=== PATIENT | male | born 1940 | race Caucasian/White ===

== ENCOUNTER → 2016-10-21 | Outpatient (CLI) | payer OTHER ==
[~2016-10-21] MED LIST: ACT15 PO; ASPEC325 PO; ATOR-24 PO; CLB200 PO; GLC5500 PO; GLYB5TAB3 PO; LISI5TAB3 PO; NTRAR PO; OXYC-57 PO; OXYSR/20 PO; SNK PO
[2016-10-21 18:28] LABS: BASO % 0.1 %; BASO ABS # 0.01 K/uL (0-0.2); COMPLETE YES; EOS % 1.6 %; HEMATOCRIT 38.3 % (42-52); IG% 0.4 %; LYMPH % 34.1 %; LYMPH ABS # 3.25 K/uL (1.2-3.4); MEAN CORPUSCULAR HEMOGLOBIN 31.8 pg (25-34); MEAN CORPUSCULAR HGB CONC 33.4 g/dl (32-36); MEAN PLATELET VOLUME 10.4 fL (7.4-10.4); NEUT % 56.8 %; PLATELET COUNT 283 K/uL (130-400); RED BLOOD COUNT 4.03 M/uL (4.7-6.1); WHITE BLOOD COUNT 9.53 K/uL (4.8-10.8)
[2016-10-21 18:36] LABS: ALT/SGPT 25 U/L (12-78); BLOOD UREA NITROGEN 11 mg/dl (7-18); BUN/CREATININE RATIO 11.6 (10-20); CALCIUM 9.1 mg/dl (8.5-10.1); CARBON DIOXIDE 27 mmol/L (21-32); CHLORIDE 105 mmol/L (98-107); CHOLESTEROL 124 mg/dl (0-200); CREATININE 0.95 mg/dl (0.60-1.40); GLUCOSE 159 mg/dl (70-99); POTASSIUM 4.4 mmol/L (3.5-5.1); SODIUM 141 mmol/L (136-145)
[2016-10-21 18:39] LABS: ALB/GLOB RATIO 0.9 (0.9-2); ALKALINE PHOSPHATASE 111 U/L (45-117); AST/SGOT 16 U/L (15-37); CHOLESTEROL/HDL RATIO 2.3; HDL CHOLESTEROL 54 mg/dl; LDL CHOLESTEROL CALCULATED 46 mg/dl; TRIGLYCERIDES 118 mg/dl (0-150); VERY LOW DENSITY LIPOPROT CALC 24 mg/dl
[2016-10-22 05:58] LABS: ESTIMATED AVERAGE GLUCOSE 154 mg/dl; HA1C FLAG Normal (Normal)
== END | disposition home or self-care (01) ==
LOC: C.LABSPEC 11:43
PROVIDERS: ATTEND Family Medicine
DX: E11.9 Type 2 diabetes mellitus without complications (principal); I10 Essential (primary) hypertension; E78.2 Mixed hyperlipidemia

== ENCOUNTER → 2017-04-22 | Outpatient (CLI) | payer OTHER ==
[2017-04-22 18:21] LABS: COMPLETE YES; EOS % 2.1 %; HEMATOCRIT 37.3 % (42-52); IG% 0.3 %; LYMPH % 38.1 %; LYMPH ABS # 2.86 K/uL (1.2-3.4); MEAN CELL VOLUME 95.6 fL (80-100); MEAN CORPUSCULAR HEMOGLOBIN 32.1 pg (25-34); MEAN CORPUSCULAR HGB CONC 33.5 g/dl (32-36); MEAN PLATELET VOLUME 10.4 fL (7.4-10.4); MONO % 6.8 %; NEUT % 52.7 %; PLATELET COUNT 260 K/uL (130-400)
[2017-04-22 18:28] LABS: ALT/SGPT 20 U/L (12-78); BLOOD UREA NITROGEN 11 mg/dl (7-18); BUN/CREATININE RATIO 13.3 (10-20); CALCIUM 9.5 mg/dl (8.5-10.1); CARBON DIOXIDE 25 mmol/L (21-32); CHLORIDE 106 mmol/L (98-107); CHOLESTEROL 100 mg/dl (0-200); CREATININE 0.82 mg/dl (0.60-1.40); GLUCOSE 122 mg/dl (70-99); POTASSIUM 4.6 mmol/L (3.5-5.1); SODIUM 139 mmol/L (136-145)
[2017-04-22 18:31] LABS: ALB/GLOB RATIO 0.9 (0.9-2); ALKALINE PHOSPHATASE 101 U/L (45-117); AST/SGOT 20 U/L (15-37); CHOLESTEROL/HDL RATIO 1.7; HDL CHOLESTEROL 60 mg/dl; LDL CHOLESTEROL CALCULATED 29 mg/dl; TRIGLYCERIDES 56 mg/dl (0-150); VERY LOW DENSITY LIPOPROT CALC 11 mg/dl
== END | disposition home or self-care (01) ==
LOC: C.LABSPEC 18:01
PROVIDERS: ATTEND Family Medicine
DX: E11.9 Type 2 diabetes mellitus without complications (principal); E78.2 Mixed hyperlipidemia; I10 Essential (primary) hypertension

== ENCOUNTER 2017-10-23 05:36 | Inpatient (IN) | payer OTHER ==
[2017-09-29 14:11] VITALS: BMI 33.0
--- NOTE | 2017-09-29 14:52 | PAT Medication Instructions ---
Service Date Sep 29, 2017. Current Home Medication List Atorvastatin (Lipitor), 20 MG PO QAM Glyburide-Metformin (Glucovance 5/500 Mg), 2 TAB PO QAM Glyburide-Metformin (Glucovance 5/500 Mg), 1 TAB PO QDD Lisinopril (Zestril), 5 MG PO QAM Oxycodone/Acetaminophen 5MG/325MG (Percocet 5MG/325MG), 1-2 TABLETS PO UD PRN for Pain Pioglitazone (Actos), 15 MG PO QAM Psyllium (Metamucil), 1 DOSE PO UD PRN for PRN Medication Instructions For Your Scheduled Surgery - Hold the following medications the morning of surgery: Glyburide-Metformin (Glucovance 5/500 Mg), 2 TAB PO QAM Lisinopril (Zestril), 5 MG PO QAM Pioglitazone (Actos), 15 MG PO QAM Psyllium (Metamucil), 1 DOSE PO UD PRN for PRN - Take the following medications the morning of surgery with a sip of water: Atorvastatin (Lipitor), 20 MG PO QAM Oxycodone/Acetaminophen 5MG/325MG (Percocet 5MG/325MG), 1-2 TABLETS PO UD PRN for Pain (if needed, can be taken up to four hours before surgery) - Take the following medications as scheduled the night before surgery: Glyburide-Metformin (Glucovance 5/500 Mg), 1 TAB PO QDD Oxycodone/Acetaminophen 5MG/325MG (Percocet 5MG/325MG), 1-2 TABLETS PO UD PRN for Pain (if needed) Psyllium (Metamucil), 1 DOSE PO UD PRN for PRN (if needed) If you have any questions please call us at [phone] or [phone] or [phone]
[2017-09-29 15:40] LABS: BASO % 0.1 %; BASO ABS # 0.01 K/uL (0-0.2); EOS % 1.1 %; HEMATOCRIT 36.7 % (42-52); HEMOGLOBIN 12.1 g/dL (14.0-18.0); IG# 0.03 K/uL (0.00-0.02); LYMPH % 30.4 %; LYMPH ABS # 2.78 K/uL (1.2-3.4); MEAN CELL VOLUME 96.1 fL (80-100); MEAN CORPUSCULAR HEMOGLOBIN 31.7 pg (25-34); MEAN PLATELET VOLUME 10.2 fL (7.4-10.4); MONO % 6.1 %; MONO ABS # 0.56 K/uL (0.11-0.59); NEUT ABS # 5.66 K/uL (1.4-6.5); PLATELET COUNT 277 K/uL (130-400); RED CELL DISTRIBUTION WIDTH CV 14.3 % (11.5-14.5); RED CELL DISTRIBUTION WIDTH SD 50.5 fL (36.4-46.3); WHITE BLOOD COUNT 9.14 K/uL (4.8-10.8)
[2017-09-29 15:52] LABS: ALBUMIN 3.5 gm/dl (3.4-5.0); CALCIUM 9.2 mg/dl (8.5-10.1); CREATININE 0.8 mg/dl (0.60-1.40); POTASSIUM 4.2 mmol/L (3.5-5.1); PTT PATIENT 26.5 SECONDS (21.0-31.0)
--- NOTE | 2017-09-29 15:55 | DIAGNOSTIC IMAGING REPORT ---
CHEST 2 VIEWS ROUTINE CLINICAL HISTORY: PAT preoperative evaluation COMPARISON STUDY: No previous studies for comparison. FINDINGS: The bones soft tissues and hemidiaphragms are normal. The cardiomediastinal silhouette is normal. The lungs are clear. The pulmonary vasculature is normal. IMPRESSION: Negative chest. The above report was generated using voice recognition software. It may contain grammatical, syntax or spelling errors. Electronically signed by: Uzair Dwyer M.D. 09/29/2017 3:54 PM Dictated Date/Time: 09/29/2017 3:52 PM
[2017-09-29 16:17] LABS: HEMOGLOBIN A1C 6.7 % (4.5-5.6)
--- NOTE | 2017-10-22 10:32 | HISTORY & PHYSICAL EXAMINATION ---
DATE OF ADMISSION: 10/23/2017 CHIEF COMPLAINT: Right hip pain. HISTORY OF PRESENT ILLNESS: The patient is a 77-year-old male with known osteoarthritis about his right hip. He needs to use a cane for ambulation due to pain and disability with weightbearing activities. He has had previous knee replacement surgery and lumbar spine surgery. He has been trying to hold off on his hip replacement; however, due to ongoing pain and disability, he now desires to proceed with right total hip arthroplasty. PAST MEDICAL HISTORY: Hypertension, hypercholesterolemia, and type 2 diabetes. PAST SURGICAL HISTORY: Right knee replacement as above, lumbar spine surgery, and right wrist surgery. MEDICATIONS: Glyburide/metformin 5/500 two times daily, lisinopril 5 mg daily, pioglitazone 15 mg daily, and atorvastatin 40 mg daily. ALLERGIES: No known drug allergies. SOCIAL HISTORY AND REVIEW OF SYSTEMS: Noncontributory. PHYSICAL EXAMINATION: GENERAL: Well-nourished and well-developed elderly male, who appears his stated age. HEENT: Normocephalic and atraumatic. Extraocular movements intact. Oropharynx is pink and moist. NECK: Supple without adenopathy. LUNGS: Clear to auscultation bilaterally. HEART: Regular rate and rhythm. ABDOMEN: Soft, nontender, nondistended, and obese. EXTREMITIES: The upper extremities are within normal limits. The right hip demonstrates limited range of motion. There is limitation of active and passive internal/external rotation with pain at end range. X-RAYS: X-rays were reviewed. He has complete loss of the right hip joint space. There are osteophytes about the femoral head. ASSESSMENT: Right hip degenerative joint disease. PLAN: Risks versus benefits were discussed. Consent was obtained. The patient's primary care physician is Dr. Manuel. We will proceed with right total hip arthroplasty as indicated.
[~2017-10-23] VITALS: Ht 172.7 cm; Wt 98.0 kg
[2017-10-23] VITALS (11 sets, daily range): BP systolic 88–159; BP diastolic 53–97; PULSE 67–91; TEMP 36.4–36.7; O2SAT 93–98; Ht 172.7 cm; Wt 98.0 kg
[~2017-10-23 05:36] MED LIST changes: -ACT15 PO; +ACT30 PO; -ASPEC325 PO; -CLB200 PO; -GLC5500 PO; +LISI-729 PO; -LISI5TAB3 PO; +MISSING PHYSICIAN SIGNATURE ON ORDER SCH; -NTRAR PO; -OXYSR/20 PO; +PSYL48.59 PO; -SNK PO
[2017-10-23] MEDS ORDERED: METOCLOPRAMIDE HCL 10 MG TAB PO SCH (06:00)
[2017-10-23] MEDS ORDERED: CeleBREX 200 MG CAP PO SCH (06:00)
[2017-10-23] MEDS ORDERED: GABAPENTIN 300 MG CAP PO SCH (06:00)
[2017-10-23] MEDS ORDERED: ACETAMINOPHEN 500 MG TAB PO SCH (06:00)
[2017-10-23] MEDS ORDERED: FAMOTIDINE 20 MG TAB PO SCH (06:00)
[2017-10-23] MEDS ORDERED: ROPIVACAINE 5MG/ML 30 ML 150 MG, BUPIVACAINE 0.5% MPF INJ 30 ML, EpINEphrine HCL INJ 0.... INFIL SCH ×8 (06:00)
[2017-10-23] MEDS ORDERED: CEFAZOLIN 2000MG IV PUSH 15 ML IV SCH (06:00)
[2017-10-23] MEDS ORDERED: LACTATED RINGER'S 1000ML 1,000 ML IV SCH (06:00)
[2017-10-23] MEDS ORDERED: DEXAMETHASONE 4 MG TAB PO SCH (06:00)
[2017-10-23] MEDS ORDERED: BUPIVACAINE 0.5 % 5 MG/1 ML PF 10ML VIAL ONE (06:22)
[2017-10-23] MEDS: TRANEXAMIC ACID INJ 1,000 MG x 2 Bags IV SCH ×4 (06:30→07:45)
--- NOTE | 2017-10-23 07:40 | History & Physical Bridge Note ---
H&P Re-Evaluation Bridge Note: I have examined the patient, reviewed the History & Physical and in the interval since the performance of the History & Physical I have noted the following changes of clinical significance: No changes noted
[2017-10-23] MEDS: OXYCODONE HCL 10 MG TABCR (OXYCONTIN) PO SCH ×2 (07:45→07:46)
[2017-10-23] MEDS ORDERED: FENTANYL CITRATE INJ 50 MCG/1 ML 2 ML VIAL ONE (07:45)
[2017-10-23] MEDS ORDERED: MIDAZOLAM HCL 1 MG/ML 2ML VIAL ONE ×3 (07:45→07:53)
[2017-10-23] MEDS ORDERED: BACITRACIN 50000 UNIT VIAL ONE (07:54)
[2017-10-23] MEDS ORDERED: POVIDONE-IODINE OP SOLN 30 ML BTL ONE (07:54)
[2017-10-23] MEDS ORDERED: ORTHO JOINT ANESTHETIC ONE (07:54)
[2017-10-23] MEDS ORDERED: FENTANYL CITRATE INJ 50 MCG/1 ML 2 ML VIAL IV PRN (08:15)
[2017-10-23] MEDS ORDERED: PHENYLEPHRINE 100MCG/ML 5ML SYR IV PRN (08:15)
[2017-10-23] MEDS ORDERED: EpHEDrine SULFATE INJ 50 MG/ML AMP IV PRN (08:15)
[2017-10-23] MEDS ORDERED: ATROPINE SULFATE 0.1 MG/ML 5ML SYR IV PRN (08:15)
[2017-10-23] MEDS ORDERED: HYDROmorphone INJ 2 MG/ML SYR/VIAL IV PRN (08:15)
[2017-10-23] MEDS ORDERED: ONDANSETRON INJ 2 MG/ML 2 ML VIAL IV PRN ×2 (08:15→09:45)
[2017-10-23] MEDS ORDERED: LIDOCAINE HCL 2% 2 ML VIAL (20MG/ML) ONE (08:51)
[2017-10-23] MEDS ORDERED: EpHEDrine SULFATE 50MG/5ML SYR ONE (08:51)
[2017-10-23] MEDS ORDERED: PHENYLEPHRINE 100MCG/ML 5ML SYR ONE (08:51)
[2017-10-23] MEDS ORDERED: PROPOFOL IV EMULSION 10 MG/ML 20 ML VIAL IV ONE (08:51)
--- NOTE | 2017-10-23 09:09 | [facility] Post Operative Brief Note ---
Immediate Operative Summary Operative Date Oct 23, 2017. Pre-Operative Diagnosis Right Hip Degenerative Joint Disease Post-Operative Diagnosis Right Hip Degenerative Joint Disease Procedure(s) Performed Right Total Hip Arthroplasty--Uncemented Surgeon Dr. Telles Rooter Operator Surgeon(s) HEATHER Ashton Estimated Blood Loss 100cc Findings Consistent with Post-Op Diagnosis Specimens A. Right Femoral Head Anesthesia Type MAC Spinal Regional Complication(s) none Disposition Accompanied Pt To Recover: no Disposition: Recovery Room / PACU
--- NOTE | 2017-10-23 09:19 | OPERATIVE REPORT ---
DATE OF OPERATION: 10/23/2017 PREOPERATIVE DIAGNOSIS: Osteoarthritis, right hip. POSTOPERATIVE DIAGNOSIS: Osteoarthritis, right hip. PROCEDURE: Right Pepper total hip arthroplasty. SURGEON: Dr. Telles. IN CLASS SPECIAL EDUCATION TEACHER: Alex Banda PA-C. ANESTHESIA: Spinal. COMPLICATIONS: None. OPERATION AND FINDINGS: PROCEDURE: Following induction of adequate spinal anesthesia, the patient was placed in left lateral decubitus position and right Drew-Langenbeck incision was made. Subcutaneous tissue was sharply dissected. Electrocautery used for hemostasis. The fascia was incised throughout the length of the wound and a stewart scissor placed beneath the short external rotators. The pyriformis was tagged with #1 Vicryl. The short external rotators were divided from the posterior aspect of the femur using electrocautery. These were swept posteriorly. A T-capsulotomy incision was made and the hip was dislocated using a combination of flexion, adduction, and internal rotation. Exposure of the femoral neck with old-style Hohmann and a blunt Hohmann was carried out and a femoral rasp was utilized as a guide for making the appropriate level femoral neck cut. This bone fragment was removed and reserved on the back table. Next, attention was turned to the acetabulum where bone hook was used to retract the femur while the offset retractors were placed anterior and posteriorly. A double-angled Hohmann was placed in superior and anterior position exposing the acetabulum nicely. Acetabular labrum as well as posterior capsule elements were removed using a long knife and a long pickup. Fovea centralis was cleared of all soft tissue. Sequential reamings were carried up to a 54 and decision was made to proceed with impaction of a 54 trabecular metal cup. This was impacted and held using a single 35 mm bone screw. The acetabular liner was placed with 15 of elevated posterior wall in the superior and posterior position. Next, attention was turned to the femoral portion of the case where a Bovie and pickup was used to further clear short external rotators from their insertion on the femur. Box osteotome was used to gain access to the femoral canal and the T-handled rasp and a rattail rasp were used to further open and lateral the canal. Sequentially raspings were carried up to a 5 which gave good fit and fill of the proximal femur. A trial reduction was carried out and a 132 degree femoral neck component was chosen as the size to be used. A -2.5 x 36 mm ceramic femoral head was impacted into position, +0 head was utilized. The trial reduction was stable in all degrees of rotation with no [id number] impingement. The hip was dislocated. The trial components were removed and the final femoral stem, neck, and femoral head combination were assembled on the back table and impacted into position. Hip was relocated. Range of motion checked once again successful and the wound was irrigated. The pyriformis repaired to the greater trochanter using #1 Vicryl [id number] suture. A Hemovac drain was placed and the fascia was closed using #1 Vicryl, subcutaneous tissue was closed using 0 Dexon, and skin was closed with jodee. Sterile dressing of Adaptic, 4 x 4's, ABDs, and foam tape was applied. The patient tolerated the procedure well. Due to the complex nature of the procedure, the entire surgery was performed with the operational assistance of Alex Banda PA-C. The mailing machine assistant, under direct supervision, was involved in the actual performance of all aspects of the surgical procedure including hemostasis, tissue retraction and incision, instrument management, patient positioning, and wound closure. DISPOSITION: Recovery room, stable. I attest to the content of the Intraoperative Record and any orders documented therein. Any exception s are noted below.
[2017-10-23] MEDS ORDERED: CEFAZOLIN IV 2,000 MG in DEXTROSE 5% 50ML 50 ML IV SCH (09:45)
[2017-10-23] MEDS ORDERED: ZOLPIDEM TARTRATE 5 MG TAB PO PRN (09:45)
[2017-10-23] MEDS ORDERED: TAMSULOSIN HCL 0.4 MG CAP PO PRN (09:45)
[2017-10-23] MEDS ORDERED: ALUMINUM/MAGNESIUM/SIMETH (MAALOX MAX) 30 ML UDC PO PRN (09:45)
[2017-10-23] MEDS ORDERED: OXYCODONE HCL IR 5 MG TAB (IMMEDIATE RELEASE) PO PRN (09:45)
[2017-10-23] MEDS ORDERED: METOCLOPRAMIDE HCL INJ 5 MG/ML 2 ML VIAL IV PRN (09:45)
[2017-10-23] MEDS ORDERED: MAGNESIUM HYDROXIDE SUSP 30 ML UDC PO PRN (09:45)
[2017-10-23] MEDS ORDERED: MoRPHine SULFATE 2 MG/ML CARP IV PRN (09:45)
[2017-10-23] MEDS ORDERED: PHARMACY GLYCEMIC MGMT CONSULT SCH (09:55)
--- NOTE | 2017-10-23 10:12 | DIAGNOSTIC IMAGING REPORT ---
AP PELVIS, CROSSTABLE LATERAL RIGHT HIP History: Right total hip arthroplasty. Degenerative arthritis. Postop. FINDINGS: The patient is status post a right total hip arthroplasty. The hardware is intact. No fracture or dislocation. Surgical drains are in place. IMPRESSION: Right total hip arthroplasty. No evidence for hardware complication Electronically signed by: Papo [place] M.D. 10/23/2017 10:11 AM Dictated Date/Time: 10/23/2017 10:10 AM
--- NOTE | 2017-10-23 11:33 | Anesthesiology Progress Note ---
Anesthesia Post Op Note Date & Time Oct 23, 2017 at 11:33 Vital Signs Pain Intensity: 0 Vital Signs Past 12 Hours Date Time Temp Pulse Resp B/P (MAP) Pulse Ox O2 Delivery O2 Flow Rate FiO2 10/23/17 11:15 72 12 109/65 94 Nasal Cannula 3 10/23/17 11:05 68 12 111/63 93 Nasal Cannula 3 10/23/17 10:55 70 12 106/63 94 Nasal Cannula 3 10/23/17 10:45 71 12 112/63 93 Nasal Cannula 3 10/23/17 10:35 70 12 104/62 96 Nasal Cannula 3 10/23/17 10:25 74 12 106/61 94 Nasal Cannula 2 10/23/17 10:15 73 12 111/60 93 Nasal Cannula 2 10/23/17 10:05 73 12 107/58 94 Nasal Cannula 2 10/23/17 09:55 77 12 107/60 95 Nasal Cannula 2 10/23/17 09:45 77 13 102/62 100 Oxymask 10 10/23/17 09:37 36.5 77 16 93/48 (69) 100 Oxymask 10 10/23/17 07:20 36.7 91 20 132/84 94 Room Air Notes Mental Status: alert / awake / arousable, participated in evaluation Pt Amnestic to Procedure: Yes Nausea / Vomiting: adequately controlled Pain: adequately controlled Airway Patency, RR, SpO2: stable & adequate BP & HR: stable & adequate Hydration State: stable & adequate Neuraxial Anesthesia: was administered, sensory block is resolving Anesthetic Complications: no major complications apparent
[2017-10-23] MEDS ORDERED: INSULIN GLARGINE SOLOSTAR 100 UNITS/ML 3 ML PEN SC SCH (12:00)
[2017-10-23] MEDS ORDERED: MoRPHine SULFATE 4 MG/ML 1 ML CARP\\VIAL IV PRN (12:30)
[2017-10-23] MEDS ORDERED: GLUCOSE 40% GEL 15 GM TUBE PO PRN (12:30)
[2017-10-23] MEDS ORDERED: GLUCOSE 10 TABS/TUBE PO PRN (12:30)
[2017-10-23] MEDS ORDERED: GLUCAGON FOR INJ 1 MG VIAL SQ PRN (12:30)
[2017-10-23] MEDS ORDERED: DEXTROSE 50% 50 ML SYR IV PRN (12:30)
[2017-10-23] MEDS ORDERED: SODIUM CHLORIDE 0.9% 500ML 500 ML IV SCH (12:45)
[2017-10-23 12:48] LABS: HEMATOCRIT 33.4 % (42-52)
[2017-10-23] MEDS: SODIUM CHLORIDE 0.9% 1000ML 1,000 ML IV SCH ×2 (12:51→19:13)
--- NOTE | 2017-10-23 13:02 | Pharmacy Progress Note ---
Glycemic Control Intl Consult Date of Service Oct 23, 2017. Scope Glycemic Pharmacist consulted by Alex Banda PA-C on 10/23/17 for glycemic control and to write orders per [facility] inpatient glycemic control protocol Objective Weight (Kilograms): 98.00 Accuchecks BSG (last 24hrs): Test 10/23/17 07:03 10/23/17 09:41 Bedside Glucose 109 mg/dl (70-99) 135 mg/dl (70-99) Recent Pertinent Medications Outpatient Anti-diabetic Regimen: * Glyburide-metformin 5 mg/500 mg take 2 tablets by mouth in the morning and 1 tablet in the evening; Actos 15 mg PO daily * A1c = 6.7 % 09/29/17 Risk Factors for Insulin Resistance: * Steroids: dexamethasone 8 mg PO prior to surgery and 10 mg IVP scheduled for tomorrow morning * Recent Surgery: POD 0 for hip surgery * Diet: type 2 diabetic diet Assessment & Plan ASSESSMENT: * Mr Weaver is a 77 y/o M with a PMH of HTN, HLD, and well controlled type 2 diabetes who presents for a right hip replacement. He received 8 mg of oral dexamethasone prior to surgery then 10 mg of IV dexamethasone will be given tomorrow. Patient's fasting blood sugar prior to surgery was 109 and 135 mg/dL. * Since patient received oral dexamethasone will give 40 units of Lantus (0.4 units/kg and also between weight-based stress of 2 and 3 dosing). Will utilize weight-based stress of 3 Novolog parameters as the patient received dexamethasone orally and then will receive IV tomorrow. Overnight checks ordered to ensure full 24 hour coverage. Patient most likely has some insulin resistance as he has a well maintained HbA1C yet is maintained on three oral agents (one pill is a combo pill). * Pt is maintained on oral antidiabetic agents as an outpatient * Oral agents are not recommended for inpatient use d/t drug interactions, changing PO intake, and difficulty titrating for acute hyper/hypoglycemia. ADA recommends re-initiating outpatient oral agents 1-2 days prior to discharge if/ when appropriate if they were held on admission. * Most likely will restart on POD 2. * Will hold oral agents for admission and utilize SQ basal bolus insulin regimen which is the recommended regimen for inpatient glycemic control. * Will initiate weight based insulin dosing for insulin haydee patient and titrate based on BSG trends. PLAN FOR INPATIENT GLYCEMIC CONTROL: * Holding outpatient oral diabetes medications * Basal insulin with LANTUS 40 units SQ x 1 then dose based upon response * Correctional Insulin with NOVOLOG per scale ACHS or Q6hrs while NPO * Goal Range: Low 110 mg/dL - High 140 mg/dL * Correction Factor: 15 mg/dL/unit * Nutritional / Prandial insulin per carb ratio of 1 unit per 5 grams CHO consumed OUTPATIENT RECOMMENDATION * Patient's HbA1C is well controlled- recommend continuing on current agents. Can maximize metformin dosing as an outpatient to 1 gm PO BID. Thank you.
[2017-10-23] MEDS: FERROUS GLUCONATE 324 MG TAB PO SCH ×2 (13:15→17:53)
[2017-10-23] MEDS: INSULIN ASPART 100 UNITS/ML 3 ML PEN SC SCH ×4 (13:17→23:42)
[2017-10-23] MEDS: KETOROLAC TROMETHAMINE 15 MG/ML VIAL IV. SCH ×2 (13:46→20:18)
[2017-10-23] MEDS: ACETAMINOPHEN 500 MG TAB PO SCH ×2 (13:46→21:54)
--- NOTE | 2017-10-23 14:00 | History and Physical ---
History & Physical Date of Service Oct 23, 2017. History & Physical This is a 77 year old male with a PMH of DM2, HTN - presents for a R hip surgery. I saw the patient in room 306 after the procedure. States pain is controlled; denies any problems/issues at this time. Medical consultation for blood pressure and blood sugar control. VITALS: Last Vital Signs Documentation Date Time Temp Pulse Resp B/P (MAP) Pulse Ox O2 Delivery O2 Flow Rate FiO2 10/23/17 12:50 74 16 101/64 (76) 96 10/23/17 11:55 Nasal Cannula 2.0 10/23/17 11:55 36.4 GEN: no acute distress HEENT: NC/AT CVS: +S1, S2, RRR LUNGS: CTA bilaterally; auscultated anterior/laterally EXT: no edema, hemovac in place; draining appropriately NEURO: no focal deficits Plan: will give 500cc bolus due to hypotensive episodes. Blood pressure improving during my exam. Hold Lisinopril (outpatient records suggest he takes Benazepril-HCTZ, either way , we will hold this). Monitor H/H for DM2 - hold oral agents, pharmacy is consulted for glycemic control due to dexamethasone use woo-operatively. Currently on Lantus and sliding scale protocol.
--- NOTE | 2017-10-23 15:43 | Medical Consult ---
Consultation Date of Consultation: Oct 23, 2017. Attending Physician: Bradley Telles M.D. Reason for Consultation: Postop medical management History of Present Illness 77-year-old male who is status post right total hip replacement today by Dr. Telles. Postoperatively the patient is doing well. He reports his pain is well controlled. He denies numbness or tingling to the lower extremities. He denies lightheadedness and dizziness. No chest pain or shortness of breath. He denies abdominal pain and nausea. He has not voided since surgery. Past Medical/Surgical History Medical Problems: (1) DM type 2 (diabetes mellitus, type 2) Status: Chronic (2) HLD (hyperlipidemia) Status: Chronic (3) HTN (hypertension) Status: Chronic Surgical Problems: (1) History of appendectomy Status: Chronic (2) History of back surgery Status: Chronic (3) History of bowel resection Status: Chronic (4) Status post total knee replacement, right Status: Chronic Family History Diabetes mellitus FATHER Social History Smoking Status: Never Smoker Alcohol Use: occasionally Allergies Coded Allergies: No Known Allergies (Unverified , 10/23/17) Home Medications Metamucil (Psyllium) 48.57 % Pow 1 Dose PO UD PRN Percocet 5MG/325MG (Oxycodone/Acetaminophen) Tab 1-2 Tablets PO UD PRN PAIN Actos (Pioglitazone) 30 Mg Tab 15 Mg PO QAM 90 Days Zestril (Lisinopril) 5 Mg Tab 5 Mg PO QAM Glucovance 5/500 Mg (Glyburide-Metformin) 1 Tab Tab 1 Tab PO HS 30 Days Glucovance 5/500 Mg (Glyburide-Metformin) 1 Tab Tab 2 Tab PO QAM 90 Days Lipitor (Atorvastatin Calcium) 40 Mg Tab 20 Mg PO QAM Current Inpatient Medications Current Inpatient Medications Medications (Trade) Dose Ordered Sig/Mahamed Route Start Time Stop Time Status Last Admin Dose Admin Lactated Ringer's 1,000 ml @ 15 mls/hr Q24H IV 10/23/17 06:00 10/24/17 05:59 10/23/17 07:40 15 MLS/HR Cefazolin Sodium 15 ml @ 3.75 mls/ min PREOP IV 10/23/17 06:00 10/23/17 18:00 10/23/17 08:14 3.75 MLS/MIN Acetaminophen (Tylenol Tab) 1,000 mg PREOP PO 10/23/17 06:00 10/23/17 18:00 10/23/17 07:46 1,000 MG Celecoxib (CeleBREX CAP) 200 mg PREOP PO 10/23/17 06:00 10/23/17 18:00 10/23/17 07:47 200 MG Dexamethasone (Decadron Tab) 8 mg PREOP PO 10/23/17 06:00 10/23/17 18:00 10/23/17 07:46 8 MG Famotidine (Pepcid Tab) 20 mg PREOP PO 10/23/17 06:00 10/23/17 18:00 10/23/17 07:47 20 MG Gabapentin (Neurontin Cap) 300 mg PREOP PO 10/23/17 06:00 10/23/17 18:00 10/23/17 07:46 300 MG Metoclopramide HCl (Reglan Tab) 10 mg PREOP PO 10/23/17 06:00 10/23/17 18:00 10/23/17 07:47 10 MG Oxycodone HCl (Oxycontin Tab) 10 mg PREOP PO 10/23/17 06:00 10/23/17 18:00 Sodium Chloride 1,000 ml @ 100 mls/hr Q10H IV 10/23/17 09:37 10/24/17 09:36 10/23/17 12:51 100 MLS/HR Ketorolac Tromethamine (Toradol Inj) 15 mg Q6H IV. 10/23/17 14:00 10/24/17 08:01 10/23/17 13:46 15 MG Oxycodone HCl (Roxicodone Immediate Rel Tab) 1 TABLET FOR PAIN RATING... Q4H PRN PO 10/23/17 09:45 11/06/17 09:44 Morphine Sulfate (MoRPHine SULFATE INJ) 2 mg Q2HWA PRN IV 10/23/17 09:45 11/06/17 09:44 Acetaminophen (Tylenol Tab) 1,000 mg Q8H PO 10/23/17 14:00 11/22/17 13:59 Magnesium Hydroxide (Milk Of Magnesia Susp) 30 ml Q6H PRN PO 10/23/17 09:45 11/22/17 09:44 Docusate Sodium (coLACE CAP) 100 mg BID PO 10/23/17 21:00 11/22/17 20:59 Diphenhydramine HCl (Benadryl Cap) 25 mg Q8H PRN PO 10/23/17 09:45 11/22/17 09:44 Al Hydrox/Mg Hydrox/Simethicone (Maalox Max Susp) 15 ml Q4H PRN PO 10/23/17 09:45 11/22/17 09:44 Zolpidem Tartrate (Ambien Tab) 5 mg HSZ PRN PO 10/23/17 09:45 11/22/17 09:44 Multivitamins (Multivitamin Tab) 1 tab QAM PO 10/24/17 09:00 11/23/17 08:59 Ondansetron HCl (Zofran Inj) 4 mg Q6H PRN IV 10/23/17 09:45 11/22/17 09:44 Metoclopramide HCl (Reglan Inj) 10 mg Q6H PRN IV 10/23/17 09:45 11/22/17 09:44 Ferrous Gluconate (Ferrous Gluconate Tab) 324 mg TIDM PO 10/23/17 12:30 11/22/17 12:29 10/23/17 13:15 324 MG Pantoprazole Sodium (Protonix Tab) 40 mg QAM PO 10/24/17 09:00 10/28/17 08:59 Tamsulosin HCl (Flomax Cap) 0.4 mg QAM PRN PO 10/23/17 09:45 11/22/17 09:44 Dexamethasone Sodium Phosphate 10 mg/Syringe 2.5 ml @ 1 mls/min TODAY@0730 IV 10/24/17 07:30 10/24/17 09:00 Aspirin (Ecotrin Tab) 81 mg BID PO 10/23/17 21:00 11/22/17 20:59 Atorvastatin Calcium (Lipitor Tab) 20 mg QAM PO 10/24/17 09:00 11/23/17 08:59 Miscellaneous Information (Consult Glycemic Management Pharmacy) 1 ea UD N/A 10/23/17 09:55 11/22/17 09:54 Insulin Aspart (novoLOG ASPART) SLIDING SCALE ACHS SC 10/23/17 11:00 11/22/17 10:59 10/23/17 13:17 12 UNITS Insulin Aspart (novoLOG ASPART) SLIDING SCALE TODAY@0000,0400 SC 10/24/17 00:00 10/24/17 04:01 Morphine Sulfate (MoRPHine SULFATE INJ) 4 mg Q2HWA PRN IV 10/23/17 12:30 11/06/17 12:29 Glucose (Glucose 40% Gel) 15-30 GRAMS 15 GRAMS... UD PRN PO 10/23/17 12:30 11/22/17 12:29 Glucose (Glucose Chew Tab) 4-8 Tablets 4 Tabl... UD PRN PO 10/23/17 12:30 11/22/17 12:29 Dextrose (Dextrose 50% 50ML Syringe) 25-50ML OF 50% DW IV FOR... UD PRN IV 10/23/17 12:30 11/22/17 12:29 Glucagon (Glucagon Inj) 1 mg UD PRN SQ 10/23/17 12:30 11/22/17 12:29 Cefazolin Sodium 2000 mg/Syringe 15 ml @ 3.75 mls/ min Q8H IV 10/23/17 16:00 10/24/17 15:59 Review of Systems ROS per HPI, all other systems reviewed and negative Physical Exam Date Time Temp Pulse Resp B/P (MAP) Pulse Ox O2 Delivery O2 Flow Rate FiO2 10/23/17 14:47 78 16 99/62 (74) 98 10/23/17 13:53 85 18 159/97 (117) 97 Nasal Cannula 3.0 10/23/17 12:50 74 16 101/64 (76) 96 10/23/17 12:20 73 16 88/58 (68) 93 10/23/17 11:55 Nasal Cannula 2.0 10/23/17 11:55 36.4 69 14 102/62 (75) 95 Nasal Cannula 3.0 10/23/17 11:50 95 Nasal Cannula 3.0 10/23/17 11:50 36.4 69 14 102/62 (75) 95 Nasal Cannula 3.0 10/23/17 11:35 73 12 112/65 94 Nasal Cannula 3 10/23/17 11:25 36.8 72 15 105/69 93 Nasal Cannula 3 10/23/17 11:15 72 12 109/65 94 Nasal Cannula 3 10/23/17 11:05 68 12 111/63 93 Nasal Cannula 3 10/23/17 10:55 70 12 106/63 94 Nasal Cannula 3 10/23/17 10:45 71 12 112/63 93 Nasal Cannula 3 10/23/17 10:35 70 12 104/62 96 Nasal Cannula 3 10/23/17 10:25 74 12 106/61 94 Nasal Cannula 2 10/23/17 10:15 73 12 111/60 93 Nasal Cannula 2 10/23/17 10:05 73 12 107/58 94 Nasal Cannula 2 10/23/17 09:55 77 12 107/60 95 Nasal Cannula 2 10/23/17 09:45 77 13 102/62 100 Oxymask 10 10/23/17 09:37 36.5 77 16 93/48 (69) 100 Oxymask 10 10/23/17 07:20 36.7 91 20 132/84 94 Room Air General Appearance: WD/WN, no apparent distress Head: normocephalic, atraumatic Eyes: normal inspection, EOMI, sclerae normal ENT: hearing grossly normal, + pertinent finding (Mucous membranes moist) Neck: supple, no JVD, trachea midline Respiratory/Chest: lungs clear, normal breath sounds, no respiratory distress Cardiovascular: regular rate, rhythm, no edema, normal peripheral pulses Abdomen/GI: normal bowel sounds, non tender, soft, no organomegaly Extremities/Musculoskelatal: + pertinent finding (S/P right hip surgery, surgical dressing dry and intact, drain in place draining bloody drainage, CSM checks intact to right lower extremity) Neurologic/Psych: no motor/sensory deficits, alert, normal mood/affect, oriented x 3 Skin: normal color, warm/dry Laboratory Results Last 24 Hours Test 10/23/17 07:03 10/23/17 09:41 10/23/17 12:25 10/23/17 12:40 Bedside Glucose 109 mg/dl 135 mg/dl 219 mg/dl Hemoglobin 11.0 g/dL Hematocrit 33.4 % Assessment & Plan S/P RIGHT GLEN - POD#0 - activity and wound care orders as per ortho - pain control with bowel regimen - PT/OT - monitor H/H for acute blood loss anemia and transfuse blood products PRN - EBL 100 cc EPISODE OF HYPOTENSION -Likely due to volume depletion from surgery -Blood pressure improved after 500 cc bolus -Hemoglobin checked and noted to be 11.0 -Will hold lisinopril, resume once blood pressures have stabilized DIABETES -Recent Hgb A1c 6.7 -Hold oral agents, and utilize Lantus and NovoLog as per protocol while hospitalized HLD -Continue statin DVT PROPHYLAXIS -Aspirin 81 mg twice daily as per orthopedics Thank you for this consultation. We will follow the patient with you during their hospital stay. You can reach a member of the Orthopaedic Hospitalist Team 10/02 via pager @ [phone].
[2017-10-23] MEDS: CEFAZOLIN IV 2,000 MG in SYRINGE 0 ML IV SCH ×2 (16:01→23:45)
[2017-10-23] MEDS ORDERED: GLYBURIDE METFORMIN PO SCH (21:00)
[2017-10-23] MEDS: DOCUSATE SODIUM 100 MG CAP PO SCH (21:07)
[2017-10-23] MEDS: ASPIRIN 81 MG ECTAB PO SCH (21:07)
[2017-10-24] VITALS (8 sets, daily range): BP systolic 112–128; BP diastolic 65–80; PULSE 68–82; TEMP 36.3–36.6; O2SAT 95–99
[2017-10-24] MEDS: KETOROLAC TROMETHAMINE 15 MG/ML VIAL IV. SCH ×2 (01:33→07:52)
[2017-10-24] MEDS: SODIUM CHLORIDE 0.9% 1000ML 1,000 ML IV SCH (03:04)
[2017-10-24] MEDS: INSULIN ASPART 100 UNITS/ML 3 ML PEN SC SCH ×5 (04:00→21:00)
[2017-10-24] MEDS: ACETAMINOPHEN 500 MG TAB PO SCH ×3 (05:35→21:50)
[2017-10-24 06:27] LABS: HEMATOCRIT 27.1 % (42-52); HEMOGLOBIN 9.1 g/dL (14.0-18.0); IG# 0.04 K/uL (0.00-0.02); LYMPH % 11.3 %; LYMPH ABS # 1.68 K/uL (1.2-3.4); MEAN CELL VOLUME 94.4 fL (80-100); MEAN CORPUSCULAR HEMOGLOBIN 31.7 pg (25-34); MEAN CORPUSCULAR HGB CONC 33.6 g/dl (32-36); MEAN PLATELET VOLUME 9.5 fL (7.4-10.4); MONO % 9.2 %; MONO ABS # 1.37 K/uL (0.11-0.59); NEUT % 79.2 %; NEUT ABS # 11.76 K/uL (1.4-6.5); PLATELET COUNT 198 K/uL (130-400); RED CELL DISTRIBUTION WIDTH SD 48.5 fL (36.4-46.3); WHITE BLOOD COUNT 14.85 K/uL (4.8-10.8)
[2017-10-24 07:01] LABS: CALCIUM 8.1 mg/dl (8.5-10.1); CREATININE 0.95 mg/dl (0.60-1.40); POTASSIUM 4.2 mmol/L (3.5-5.1)
[2017-10-24] MEDS ORDERED: DEXAMETHASONE INJ 10 MG in SYRINGE 0 ML IV SCH (07:30)
[2017-10-24] MEDS: CEFAZOLIN IV 2,000 MG in SYRINGE 0 ML IV SCH (07:54)
--- NOTE | 2017-10-24 07:54 | Orthopedic Progress Note ---
Orthopedic Progress Note Date of Service Oct 24, 2017. Subjective Post OP Day: 1 Reports: feeling well, Denies: chest pain, SOB, nausea / vomiting, light headedness, calf pain Objective calves soft nontender, N/V intact, capillary refill less than 2 sec., dressing C /D/I (silverlon), A&O x3, toes mobile, hemovac drainage (180/100 cc per shift) Date Time Temp Pulse Resp B/P (MAP) Pulse Ox O2 Delivery O2 Flow Rate FiO2 10/24/17 04:05 36.5 68 18 112/65 (81) 97 Room Air 10/23/17 23:35 Room Air 10/23/17 23:05 36.7 73 18 114/70 (85) 93 Room Air 10/23/17 18:43 36.4 71 18 101/58 (72) 96 Room Air 10/23/17 15:52 36.4 67 18 95/53 (67) 93 Room Air 10/23/17 15:30 98 Nasal Cannula 2.0 10/23/17 14:47 78 16 99/62 (74) 98 10/23/17 13:53 85 18 159/97 (117) 97 Nasal Cannula 3.0 10/23/17 12:50 74 16 101/64 (76) 96 10/23/17 12:20 73 16 88/58 (68) 93 10/23/17 11:55 Nasal Cannula 2.0 10/23/17 11:55 36.4 69 14 102/62 (75) 95 Nasal Cannula 3.0 10/23/17 11:50 95 Nasal Cannula 3.0 10/23/17 11:50 36.4 69 14 102/62 (75) 95 Nasal Cannula 3.0 10/23/17 11:35 73 12 112/65 94 Nasal Cannula 3 10/23/17 11:25 36.8 72 15 105/69 93 Nasal Cannula 3 10/23/17 11:15 72 12 109/65 94 Nasal Cannula 3 10/23/17 11:05 68 12 111/63 93 Nasal Cannula 3 10/23/17 10:55 70 12 106/63 94 Nasal Cannula 3 10/23/17 10:45 71 12 112/63 93 Nasal Cannula 3 10/23/17 10:35 70 12 104/62 96 Nasal Cannula 3 10/23/17 10:25 74 12 106/61 94 Nasal Cannula 2 10/23/17 10:15 73 12 111/60 93 Nasal Cannula 2 10/23/17 10:05 73 12 107/58 94 Nasal Cannula 2 10/23/17 09:55 77 12 107/60 95 Nasal Cannula 2 10/23/17 09:45 77 13 102/62 100 Oxymask 10 10/23/17 09:37 36.5 77 16 93/48 (69) 100 Oxymask 10 Laboratory Results 24 Hours: Test 10/23/17 12:40 10/24/17 05:48 Hematocrit 33.4 % 27.1 % Hemoglobin 11.0 g/dL 9.1 g/dL White Blood Count 14.85 K/uL Red Blood Count 2.87 M/uL Mean Corpuscular Volume 94.4 fL Mean Corpuscular Hemoglobin 31.7 pg Mean Corpuscular Hemoglobin Concent 33.6 g/dl Platelet Count 198 K/uL Mean Platelet Volume 9.5 fL Neutrophils (%) (Auto) 79.2 % Lymphocytes (%) (Auto) 11.3 % Monocytes (%) (Auto) 9.2 % Eosinophils (%) (Auto) 0.0 % Basophils (%) (Auto) 0.0 % Neutrophils # (Auto) 11.76 K/uL Lymphocytes # (Auto) 1.68 K/uL Monocytes # (Auto) 1.37 K/uL Eosinophils # (Auto) 0.00 K/uL Basophils # (Auto) 0.00 K/uL Assessment & Plan Assessment: POD#1 SP RIGHT GLEN Plan: PT/OT DVT PROPH- ASA 81MG BID PAIN MANAGEMENT- CAT, TYLENOL DC PLANNING- DC FRIDAY WITH DC DRESSING/DRAIN IN AM
--- NOTE | 2017-10-24 08:13 | Anesthesiology Progress Note ---
Anesthesia Post Op Note Date & Time Oct 24, 2017 at 08:13 Vital Signs Pain Intensity: 0.0 Vital Signs Past 12 Hours Date Time Temp Pulse Resp B/P (MAP) Pulse Ox O2 Delivery O2 Flow Rate FiO2 10/24/17 08:11 95 Room Air 10/24/17 08:00 36.3 69 16 114/66 (82) 95 Room Air 10/24/17 04:05 36.5 68 18 112/65 (81) 97 Room Air 10/23/17 23:35 Room Air 10/23/17 23:05 36.7 73 18 114/70 (85) 93 Room Air Notes Mental Status: alert / awake / arousable, participated in evaluation Pt Amnestic to Procedure: Yes Nausea / Vomiting: adequately controlled Pain: adequately controlled Airway Patency, RR, SpO2: stable & adequate BP & HR: stable & adequate Hydration State: stable & adequate Neuraxial Anesthesia: was administered, sensory block resolved Anesthetic Complications: no major complications apparent
[2017-10-24] MEDS: PANTOprazole SOD 40 MG TAB PO SCH (08:39)
[2017-10-24] MEDS: ASPIRIN 81 MG ECTAB PO SCH ×2 (08:39→21:01)
[2017-10-24] MEDS: DOCUSATE SODIUM 100 MG CAP PO SCH ×2 (08:39→21:01)
[2017-10-24] MEDS: FERROUS GLUCONATE 324 MG TAB PO SCH ×3 (08:39→17:48)
[2017-10-24] MEDS: MULTIVITAMIN TAB PO SCH (08:39)
[2017-10-24] MEDS: ATORVASTATIN 20 MG TAB PO SCH (08:40)
--- NOTE | 2017-10-24 08:44 | Consultant Recommendations ---
Domestic Maid Recommendations Date of Service Oct 24, 2017. Domestic Maid Recommendations Subjective: Patient seen this AM sitting in chair. No acute complaints. Patient denies acute pain or problems with breathing General Appearance: Wno apparent distress Head: normocephalic, atraumatic Eyes: normal inspection, EOMI ENT: hearing grossly normal Neck: supple, no JVD, trachea midline Respiratory/Chest: lungs clear, normal breath sounds, no respiratory distress Cardiovascular: regular rate, rhythm, no edema, normal peripheral pulses Abdomen/GI: normal bowel sounds, non tender, soft, no organomegaly Extremities/Musculoskelatal: surgical dressing dry and intact, wound vac drain in place draining bloody drainage, Neurologic/Psych: no motor/sensory deficits, alert, normal mood/affect, oriented x 3 Skin: normal color, warm/dry Hospitalist Consultation recommendations This is a 77 year old M with Right Hip Degenerative Joint Disease and had Right Total Hip Arthroplasty surgery on 10/23/17 and under orthopedic service - There is some post-op blood loss (EBL 100 cc) and patient has wound vac drain. Hgb trending from 11 to 9.1. No need to transfuse blood products at this time for the post-op anemia. - had episode of hypotension with IV fluids given on 10/23/17 but blood pressure stable today while on IV fluids. Hold IV fluids for now and monitor blood pressure -can resume lisinopril if blood pressure above systolic 140 or after discharge to resume home medication with primary care doctor follow up - activity and wound care orders as per ortho - pain control with bowel regimen - PT/OT DIABETES -Recent Hgb A1c 6.7 -Pharmacy glycemic control note on 10/23/17 reviewed and agree with the inpatient plan and outpatient recommendation "Holding outpatient oral diabetes medications Basal insulin with LANTUS 40 units SQ x 1 then dose based upon response Correctional Insulin with NOVOLOG per scale ACHS or Q6hrs while NPO Goal Range: Low 110 mg/dL - High 140 mg/dL Correction Factor: 15 mg/dL/unit Nutritional / Prandial insulin per carb ratio of 1 unit per 5 grams CHO consumed OUTPATIENT RECOMMENDATION Patient's HbA1C is well controlled- recommend continuing on current agents. Can maximize metformin dosing as an outpatient to 1 gm PO BID." HLD -Continue statin DVT PROPHYLAXIS -Aspirin 81 mg twice daily as per orthopedics
[2017-10-24] MEDS ORDERED: LISINOPRIL 5 MG TAB PO SCH (09:00)
[2017-10-24] MEDS ORDERED: GLYBURIDE METFORMIN PO SCH (09:00)
[2017-10-24] MEDS ORDERED: INSULIN GLARGINE SOLOSTAR 100 UNITS/ML 3 ML PEN SC SCH ×2 (09:00→21:00)
[2017-10-24] MEDS ORDERED: PIOGLITAZONE 15 MG PO SCH (09:00)
--- NOTE | 2017-10-24 10:13 | Pharmacy Progress Note ---
Pharmacy Glycemic Short Note 2 Date of Service Oct 24, 2017. OUTPATIENT ANTIDIABETIC REGIMEN: * glyburide-metformin 5/500 2 tablets in morning and 1 tablet in evening * Actos 15 mg po daily ASSESSMENT: * Mr Weaver is a 77 y/o M with a PMH of HTN, HLD, and well controlled type 2 diabetes who presents for a right hip replacement. He received 8 mg of oral dexamethasone prior to surgery then 10 mg of IV dexamethasone today. Patient's fasting blood sugar prior to surgery was 109 and 135 mg/dL. Yesterday blood sugars ere [phone]. Overnight blood sugars were 200-134 mg/dL. Fasting is 101 mg/dL. * Patient received 87 units of insulin yesterday (40 units of basal) and an additional 5 units of Novolog overnight. Since the patient received 10 mg of IV dexamethasone, give additional dose dose of 40 units of Lantus this morning plus a small dose of Lantus tonight depending on blood sugar. It appears that patient responds well overnight. * For Novolog, at breakfast the same parameters were continued. The patient's blood sugar increased significantly at lunch. Therefore tightened even further for dinner. Gave additional 10 units of Lantus to make full weight-based stress of 3 Lantus today. Overnight check at 0200 * Pt is maintained on oral antidiabetic agents as an outpatient * Oral agents are not recommended for inpatient use d/t drug interactions, changing PO intake, and difficulty titrating for acute hyper/hypoglycemia. ADA recommends re-initiating outpatient oral agents 1-2 days prior to discharge if/ when appropriate if they were held on admission. * Restart on POD 2. * Will hold oral agents for admission and utilize SQ basal bolus insulin regimen which is the recommended regimen for inpatient glycemic control. * Will initiate weight based insulin dosing for insulin haydee patient and titrate based on BSG trends. PLAN FOR INPATIENT GLYCEMIC CONTROL: * Hold outpatient oral diabetes medications - restart metformin 1000 mg PO qAM plus 500 mg PO qPM * Basal insulin * Lantus 40 units SQ x 1 then 10 units with lunch * Bolus insulin * NovoLog per scale ACHS or Q6hrs while NPO * Goal Range: Low 110 mg/dL - High 140 mg/dL * Correction Factor: 10 mg/dL/unit * Nutritional / Prandial insulin per carb ratio of 1 unit per 3 grams CHO consumed PLAN FOR DISCHARGE: * Mr Omalleynn's blood sugar is well controlled on three oral agents. Reasonable to continue current regimen as long as patient is not having side effects.
--- NOTE | 2017-10-24 11:45 | Clinical Documentation Query ---
CLINICAL DOCUMENTATION QUERY Internal medicine vocational rehabilitation consultant has documented post-op blood loss. Unfortunately do to alphabetical indexing in the CMS coding library this terminology codes to a complication of care. If this is not the case please change documentation or refute the findings. In your clinical opinion is this patient being managed for: ( ) Post-op Blood Loss (A complication of care) ( ) Expected acute blood loss anemia (Not a complication of care) ( ) Not Agree ( ) Other explanation of clinical findings (Please Explain) ( ) Unable to determine (Please Define) ( ) Need to Discuss The medical record reflects the following clinical findings, treatment, and risk factors. Clinical Indicators: Hgb 12.1->9.1, Hct 36.7->27.1, Hypotension. Treatment: IVF bolus, daily H/H Risk Factors: Age and major orthopedic surgery. Please clarify and document your clinical opinion in the progress notes and discharge summary. Terms such as "probable", "suspected", "likely", "questionable", "possible", or "still to be ruled out" are acceptable. IF IN AGREEMENT, YOU MUST DOCUMENT ABOVE DIAGNOSTIC STATEMENT IN DAILY PROGRESS NOTES AND DISCHARGE SUMMARY. This document is not part of the patient's record. Thank You, Serge Zelaya, RN [phone]
--- NOTE | 2017-10-24 11:46 | Clinical Documentation Query ---
CLINICAL DOCUMENTATION QUERY Internal medicine financial consultant has documented post-op blood loss. Unfortunately do to alphabetical indexing in the CMS coding library this terminology codes to a complication of care. If this is not the case please change documentation or refute the findings. In your clinical opinion is this patient being managed for: ( ) Post-op Blood Loss (A complication of care) ( ) Expected Acute blood loss anemia (Not a complication of care) ( ) Not Agree ( ) Other explanation of clinical findings (Please Explain) ( x ) Unable to determine (Please Define) ( ) Need to Discuss Please ask the surgeon what is expected blood loos from a postop surgery and whether this is expected blood loss or not The medical record reflects the following clinical findings, treatment, and risk factors. Clinical Indicators: Hgb 12.1->9.1, Hct 36.7->27.1, Hypotension. Treatment: IVF bolus, daily H/H Risk Factors: Age and major orthopedic surgery. Please clarify and document your clinical opinion in the progress notes and discharge summary. Terms such as "probable", "suspected", "likely", "questionable", "possible", or "still to be ruled out" are acceptable. IF IN AGREEMENT, YOU MUST DOCUMENT ABOVE DIAGNOSTIC STATEMENT IN DAILY PROGRESS NOTES AND DISCHARGE SUMMARY. This document is not part of the patient's record. Thank You, Serge Zelaya, RN [phone]
[2017-10-24] MEDS ORDERED: INSULIN GLARGINE SOLOSTAR 100 UNITS/ML 3 ML PEN SC ONE (13:00)
[2017-10-25] MEDS ORDERED: INSULIN ASPART 100 UNITS/ML 3 ML PEN SC SCH (02:00)
[2017-10-25] MEDS: ACETAMINOPHEN 500 MG TAB PO SCH (05:52)
[2017-10-25 07:12] VITALS: BP 136/90; PULSE 77; TEMP 36.4; O2SAT 99
--- NOTE | 2017-10-25 07:14 | Orthopedic Progress Note ---
Orthopedic Progress Note Date of Service Oct 25, 2017. Subjective Post OP Day: 2 Reports: feeling well, pain controlled w PO medications, Denies: complaints, chest pain, SOB, nausea / vomiting, light headedness, calf pain Objective calves soft nontender, N/V intact, hip located, capillary refill less than 2 sec., dressing C/D/I, A&O x3, toes mobile Date Time Temp Pulse Resp B/P (MAP) Pulse Ox O2 Delivery O2 Flow Rate FiO2 10/25/17 07:12 36.4 77 16 136/90 (105) 99 Room Air 10/24/17 23:31 36.5 78 18 128/80 (96) 99 Room Air 10/24/17 23:05 Room Air 10/24/17 16:00 99 Room Air 10/24/17 15:56 128/66 (86) 10/24/17 15:06 36.6 82 18 99 Room Air 10/24/17 11:25 36.5 82 16 120/78 (92) 96 Room Air 10/24/17 08:11 95 Room Air 10/24/17 08:00 36.3 69 16 114/66 (82) 95 Room Air 10/24/17 07:30 Room Air Assessment & Plan Assessment: POD#2 SP RIGHT GLEN Plan: PT/OT DVT PROPH- ASA 81MG BID PAIN MANAGEMENT- CAT, TYLENOL DC PLANNING- DC FRIDAY WITH HH
[2017-10-25] MEDS ORDERED: ASPEC81 PO (07:16)
[2017-10-25] MEDS ORDERED: ACET-24 PO (07:16)
[2017-10-25] MEDS ORDERED: RXC5 PO (07:16)
[2017-10-25] MEDS ORDERED: CLB200 PO (07:16)
--- NOTE | 2017-10-25 07:19 | Discharge Instructions ---
Discharge Instructions Date of Service Oct 25, 2017. Admission Reason for Admission: Right Hip Osteoarthritis Discharge Discharge Diagnosis / Problem: S/P Right total hip arthroplasty Discharge Goals Goal(s): Decrease discomfort, Improve function Activity Recommendations Activity Limitations: per Instructions/Follow-up section . Instructions / Follow-Up Instructions / Follow-Up ACTIVITY RECOMMENDATIONS: SELF CARE INSTRUCTIONS AFTER TOTAL HIP REPLACEMENT Until the incision and soft tissues around your hip have healed, there is a possibility that the hip prosthesis could dislocate. A. Observe the following precautions to prevent dislocation: 1. Don't bend your hip greater than 90 degrees. 2. Avoid crossing your legs or ankles while standing or lying. 3. Sit with your feet placed 6 inches apart. 4. When sitting, keep your knees below your hips. Sit on a firm surface, avoid deep, soft chairs and couches. Use an elevated toilet seat in the bathroom. 5. Don't bend over at the waist. Use a long handled shoehorn and a sock aid to help you put on your shoes and socks. A supervisor chemical can help you pick up truck driver objects that are too high or too low to reach. 6. Keep car riding to a minimum for at least one month after surgery. B. Your balance may be shaky for a while. Use crutches or a walker until directed by your doctor. C. Use hand rails when walking on stairs. D. Wear low heeled shoes with non-slip soles. E. Be sure that your floors are free of things that could trip you - throw rugs , electrical cords, small objects. Avoid wet and waxed floors, especially with crutches and canes. F. Try to walk several times a day with rest periods between. G. Continue with all the exercises taught to you in the hospital. Again, make walking a part of your daily routine. SPECIAL CARE INSTRUCTIONS: VERY IMPORTANT TO READ AND REVIEW A. You may still be at risk for phlebitis and blood clots. 1. Wear surgical stockings (SHAISTA hose) for 2 weeks after surgery to improve circulation and reduce swelling. 2. Take Aspirin 81mg twice daily for 4 weeks or as directed by your doctor. This is your blood thinner. 3. High risk patients may be prescribed a stronger blood thinner if necessary. 4. If you are on Coumadin normally, your family doctor/turret punch press operator should monitor your blood work. Expect a phone call the day of or the day after bloodwork is drawn to adjust your dosage. B. You must take antibiotics before having dental work, bladder, bowel and other surgery. Your doctor will provide you with a permanent card to carry describing precautions. C. Call [facility] if you have a fever, redness or swelling around the incision, cloudy drainage from incision, or sudden increase in pain in your hip, not relieved by your regular pain medication. D. Please call the office at if you have any concerns or questions about your operation or recovery. * YOU MAY SHOWER, NO TUB BATHS UNTIL CLEARED BY YOUR DOCTOR. * WEAR SHAISTA HOSE 20 HOURS PER DAY FOR 2 WEEKS. * YOU SHOULD USE A WALKER OR CRUTCHES FOR 2-4 WEEKS. THIS WILL HELP PREVENT STRAIN ON YOUR HIP MUSCLE AND ALLOW IT TO HEAL PROPERLY. YOU MAY WEAN TO A CANE TOLERATED. * MOST PATIENTS WILL HAVE HOME NURSING FOR THERAPY. IF YOU DECIDE TO DO OUTPATIENT PHYSICAL THERAPY, PLEASE SCHEDULE THIS 3 TIMES PER WEEK. * YOU MAY HAVE A LARGE, BAND-HOMA LIKE DRESSING (SILVERON). THIS WILL REMAIN ON YOUR INCISION FOR 7 DAYS, THEN CAN BE REMOVED. IF INCISION IS LEAKING THROUGH DRESSING, PLEASE CALL THE OFFICE . FOLLOW UP VISIT: If appointment is not already scheduled: Please call [facility] to make a follow-up appointment for 2 weeks after your surgery at . Current Hospital Diet Patient's current hospital diet: Diabetes Type 2 Diet Discharge Diet Recommended Diet: Diabetes Type 2 Diet Procedures Procedures Performed: Right Total Hip Arthroplasty--Uncemented Pending Studies Studies pending at discharge: no Laboratory Results Hemoglobin A1c Test 09/29/17 15:02 Range/Units Estimated Average Glucose 146 mg/dl Hemoglobin A1c 6.7 H 4.5-5.6 % Medical Emergencies . Who to Call and When: Medical Emergencies: If at any time you feel your situation is an emergency, please call 911 immediately. . Non-Emergent Contact Non-Emergency issues call your: Surgeon Call Non-Emergent contact if: temperature is above 101.5, your pain is worsening, wound has increased drainage, wound has increased redness . "Provider Documentation" section prepared by Brandan Arias. . Blanching Machine Operator Recommendations Blanching Machine Operator Recommendations: Subjective: Patient seen this AM sitting in chair. No acute complaints. Patient denies acute pain or problems with breathing General Appearance: Wno apparent distress Head: normocephalic, atraumatic Eyes: normal inspection, EOMI ENT: hearing grossly normal Neck: supple, no JVD, trachea midline Respiratory/Chest: lungs clear, normal breath sounds, no respiratory distress Cardiovascular: regular rate, rhythm, no edema, normal peripheral pulses Abdomen/GI: normal bowel sounds, non tender, soft, no organomegaly Extremities/Musculoskelatal: surgical dressing dry and intact, wound vac drain in place draining bloody drainage, Neurologic/Psych: no motor/sensory deficits, alert, normal mood/affect, oriented x 3 Skin: normal color, warm/dry Hospitalist Consultation recommendations This is a 77 year old M with Right Hip Degenerative Joint Disease and had Right Total Hip Arthroplasty surgery on 10/23/17 and under orthopedic service - There is some post-op blood loss (EBL 100 cc) and patient has wound vac drain. Hgb trending from 11 to 9.1. No need to transfuse blood products at this time for the post-op anemia. - had episode of hypotension with IV fluids given on 10/23/17 but blood pressure stable today while on IV fluids. Hold IV fluids for now and monitor blood pressure -can resume lisinopril if blood pressure above systolic 140 or after discharge to resume home medication with primary care doctor follow up - activity and wound care orders as per ortho - pain control with bowel regimen - PT/OT DIABETES -Recent Hgb A1c 6.7 -Pharmacy glycemic control note on 10/23/17 reviewed and agree with the inpatient plan and outpatient recommendation "Holding outpatient oral diabetes medications Basal insulin with LANTUS 40 units SQ x 1 then dose based upon response Correctional Insulin with NOVOLOG per scale ACHS or Q6hrs while NPO Goal Range: Low 110 mg/dL - High 140 mg/dL Correction Factor: 15 mg/dL/unit Nutritional / Prandial insulin per carb ratio of 1 unit per 5 grams CHO consumed OUTPATIENT RECOMMENDATION Patient's HbA1C is well controlled- recommend continuing on current agents. Can maximize metformin dosing as an outpatient to 1 gm PO BID." HLD -Continue statin DVT PROPHYLAXIS -Aspirin 81 mg twice daily as per orthopedics [place] Drug Monitoring Program Search Results: patient reviewed within database, no issues identified
[2017-10-25] MEDS: INSULIN ASPART 100 UNITS/ML 3 ML PEN SC SCH (08:00)
[2017-10-25] MEDS: FERROUS GLUCONATE 324 MG TAB PO SCH (08:30)
[2017-10-25] MEDS ORDERED: METFORMIN HCL 500 MG TAB PO SCH ×2 (08:30→17:45)
[2017-10-25] MEDS: ASPIRIN 81 MG ECTAB PO SCH (08:39)
[2017-10-25] MEDS: MULTIVITAMIN TAB PO SCH (08:39)
[2017-10-25] MEDS: DOCUSATE SODIUM 100 MG CAP PO SCH (08:39)
[2017-10-25] MEDS: PANTOprazole SOD 40 MG TAB PO SCH (08:39)
[2017-10-25] MEDS: ATORVASTATIN 20 MG TAB PO SCH (08:39)
[2017-10-25 10:16] VITALS: BP 136/90; PULSE 77; TEMP 36.4; O2SAT 99
== END 2017-10-25 11:16 | disposition home health service (06) | DRG 470 ==
LOC: C.ACU 05:36 → C.3E 09:43 → ENRESERV 10:43
PROC: 0SR903A Replacement of Right Hip Joint with Ceramic Synthetic Substitute, Uncemented, Open Approach (ICD-10-PCS; principal; 2017-10-23 08:15)
DX: M16.11 Unilateral primary osteoarthritis, right hip (principal); E86.9 Volume depletion, unspecified; I95.9 Hypotension, unspecified; D64.9 Anemia, unspecified; I10 Essential (primary) hypertension; E11.9 Type 2 diabetes mellitus without complications; E78.00 Pure hypercholesterolemia, unspecified; E78.5 Hyperlipidemia, unspecified; E66.9 Obesity, unspecified; Z68.33 Body mass index [BMI] 33.0-33.9, adult; Z96.651 Presence of right artificial knee joint; Z72.0 Tobacco use; Z79.84 Long term (current) use of oral hypoglycemic drugs; Z79.899 Other long term (current) drug therapy

== ENCOUNTER 2022-01-30 19:55 | Inpatient (IN) ==
[2022-01-30 20:36] LABS: Basophils # (auto) 0.02 K/uL (0-0.2); Basophils % (auto) 0.3 %; Eosinophils # (auto) 0.11 K/uL (0-0.50); Eosinophils % (auto) 1.6 %; Hematocrit (blood only) 33.3 % (40.1-51.0); Hemoglobin 11.1 g/dl (14.0-18.0); Immature Granulocytes # (auto) 0.03 K/uL (0.00-0.02); Immature Granulocytes % (auto) 0.4 %; Lymphocytes # (auto) 0.82 K/uL (1.2-3.4); Lymphocytes % (auto) 11.8 %; Mean Corpuscular Hgb Conc 33.3 g/dL (32.0-36.0); Mean Corpuscular Volume 86.9 fL (80.0-100.0); Mean Platelet Volume 10.7 fL (9.4-12.4); Monocytes # (auto) 0.85 K/uL (0.24-0.82); Monocytes % (auto) 12.2 %; Neutrophils # (auto) 5.12 K/uL (1.4-6.5); Neutrophils % (auto) 73.7 %; Platelet Count 216 K/uL (130-400); RDW Coefficient of Variation 15.9 % (11.5-14.5); RDW Standard Deviation 50.6 fL (36.4-46.3); Red Blood Count 3.83 M/uL (4.63-6.08); White Blood Count 6.95 K/ul (4.8-10.8)
--- NOTE | 2022-01-30 20:56 | XRay Report ---
XR chest 1V portable HISTORY: Hypotension. Sepsis COMPARISON: Chest 12/01/2014. FINDINGS: There are low lung volumes. Mild elevation the right hemidiaphragm. Bibasilar linear densit ies favor subsegmental atelectasis. Otherwise, no focal lung consolidations to suggest pneumonia. The re is mild central pulmonary vascular congestion without overt edema.. The cardiac silhouette is mild ly enlarged. No pleural effusions. No pneumothorax. IMPRESSION: 1. Low lung volumes with bibasilar linear densities. This favors subsegmental atelectasis. 2. Cardiomegaly with mild central pulmonary vascular congestion. ACT 112: Negative or not required by law. Electronically signed by: Papo [place] M.D. 01/30/2022 8:54 PM
[2022-01-30 21:03] LABS: INR 1.2 (0.9-1.1); Partial Thromboplastin Ratio 1.2; Partial Thromboplastin Time 32.4 Seconds (21.0-31.0); Prothrombin Time 13.1 Seconds (9.0-12.0)
[2022-01-30 21:12] LABS: Alanine Aminotransferase 14 U/L (7-52); Albumin Globulin Ratio 0.9 (0.9-2); Albumin Level 3.9 gm/dl (3.4-5.0); Alkaline Phosphatase 362 U/L (34-104); Anion Gap 11 (3-11); Aspartate Aminotransferase 32 U/L (13-39); BUN Creatinine Ratio 37.3 (10-20); Bilirubin,Total 1.3 mg/dl (0.2-1.0); Blood Urea Nitrogen 59 mg/dl (6-23); Calcium 8.9 mg/dl (8.5-10.1); Carbon Dioxide 30 mmol/L (21-32); Chloride 84 mmol/L (98-107); Est GFR (African American) 46.8 ml/min; Est GFR (Non-African American) 40.4 ml/min; Globulin 4.2 gm/dl (2.5-4.0); Glucose 322 mg/dl (70-99(Fasting)); Magnesium 1.9 mg/dl (1.7-2.4); Potassium 4.2 mmol/L (3.5-5.1); Sodium 125 mmol/L (136-145); Total Protein 8.1 gm/dl (6.0-8.3)
[2022-01-30] MEDS ORDERED: SODIUM CHLORIDE 0.9% 1000ML 1,000 ML IV ONE (21:30)
[2022-01-30] MEDS ORDERED: NovoLIN-R INSULIN PER UNIT CHARGE IV STA (21:30)
[2022-01-30] MEDS ORDERED: CEFEPIME 2,000 MG/20 ML VIAL IV STA (21:38)
--- NOTE | 2022-01-30 21:46 | Emergency Department Note ---
Impression & Plan Hypotension, Hyperglycemia, Cellulitis, Failure of outpatient treatment, Acute hyponatremia ED Provider Note NAME: CHINYERE PATEL JR AGE: 81 SEX: M : 1940 ARRIVES VIA: Walk-In INFORMANT: [Patient][son] ED PROVIDER(S): [Vu Castle MD] CHIEF COMPLAINT: Hyperglycemia HISTORY OF PRESENT ILLNESS: The patient is an 81-year-old male who is being treated for bilateral lower extremity cellulitis. He has been on antibiotics for 5 days. Today, his blood pressure was low and his sugar was high. He was nauseated. He had a few bouts of vomiting. He presents for evaluation. There has been no fever, no cough or congestion or shortness of breath. He does have some right-sided abdominal pain that has been present now for several days if not longer. He thinks it may be his gallbladder as he has known gallstones. No urinary burning or difficulty with urination. No diarrhea. Of note, when the patient first arrived, his blood pressure systolic was in the 70s. When I arrived in the room it was in the 90s. REVIEW OF SYSTEMS: See HPI for pertinent positives and negatives. A total of ten systems were reviewed and were otherwise negative. PMHx/PSHx: See Below SOCIAL HISTORY: See Below. PHYSICAL EXAM: GENERAL: Patient is in no acute distress. HEENT: No acute trauma, normocephalic atraumatic, mucous membranes moist, no nasal congestion, no scleral icterus. NECK: No stridor, no adenopathy, no meningismus, trachea is midline. LUNGS: Clear to auscultation bilaterally, no wheeze, no rhonchi, breath sounds equal. HEART: Without murmurs gallops or rubs, regular rate and rhythm. ABDOMEN: Soft, mildly tender along the entire right side of the abdomen, no peritonitis. EXTREMITIES: No cyanosis. Mild bilateral pedal edema with some lower bilateral leg and foot erythema and warmth consistent with cellulitis. No drainage. NEUROLOGIC: Oriented x 3, no acute motor or sensory deficits, no focal weakness. SKIN: No jaundice, no diaphoresis. DIFFERENTIAL DIAGNOSIS: Dehydration, acidosis, hyperglycemia, electrolyte imbalance, renal failure, anemia, cellulitis, dehydration, diverticulitis, acute cholecystitis, UTI, among others. EMERGENCY DEPARTMENT COURSE/PROCEDURES: ECG: Indication was hypotension and abdominal pain. The ECG shows a sinus rhythm with a first-degree AV block. The rate is 64. There is nonspecific intraventricular conduction block. There is no ST elevation, no PVCs. There is potential old inferior infarct. QTC is 468. Continuous Cardiac Monitoring: An order was placed for continuous cardiac monitoring. The monitor shows a rate of 76 with sinus rhythm with a first review block. Critical Care Note: I have personally spent 43 minutes of critical care time in the direct management of this patient. This includes bedside care, interpretation of diagnostic studies, and testing, discussion with consultants, patient, and family members, and other required patient management activities. This 43 minutes is in excess of all separately billable procedures. MEDICAL DECISION MAKING: There is no leukocytosis. The patient is anemic but the patient has a history of anemia. There is a normal platelet count. INR slightly high at 1.2. VBG did not show any acidosis. Renal panel testing showed a low sodium at 125. Creatinine was elevated at 1.58 consistent with some mild acute kidney injury. Sugar was high at 322. Lactic acid level was not elevated making severe sepsis less likely. There were a few subtle liver enzyme elevations. COVID test returned negative. Chest x-ray did not show pneumonia or CHF. Abdominal and pelvis CT showed some chronic findings, no acute surgical pathology, no source for infection by CT imaging. Urinalysis result is currently pending. The patient presented hypotensive. He was aggressively managed. The patient wa s given IV saline, 1.5 L. He received IV Zofran, IV cefepime and IV insulin. Repeat blood sugar is in the 100s. His blood pressure is improved, he seems to be resting comfortably. The patient is being treated for cellulitis. He is failing outpatient management. He presents hypotensive, hyperglycemic with a low sodium. Hospitalization is indicated. I spoke with the patient and case managers. The on-call hospitalist was consulted. Past Med/Surg History Medical History DM type 2 (diabetes mellitus, type 2) HLD (hyperlipidemia) HTN (hypertension) Surgical History (Updated 01/30/22 @ 23:48 by Vu Castle MD) History of bowel resection Social History Smoking Status: Never smoker Preferred Language: Bengali Feels Safe at Home: Yes Allergies Allergies Allergy/AdvReac Type Severity Reaction Status Date / Time No Known Allergies Allergy Unverified 05/26/21 14:42 Home Meds Home Medications Medication Instructions Recorded Confirmed atorvastatin 20 mg tablet 20 mg PO DAILY 05/26/21 05/26/21 dulaglutide 0.75 mg/0.5 mL 0.75 mg subcut WK 05/26/21 05/26/21 subcutaneous pen injector (Trulicity) empagliflozin 10 mg tablet 10 mg PO DAILY 05/26/21 05/26/21 (Jardiance) lisinopril 5 mg tablet 5 mg PO QAM 05/26/21 05/26/21 metformin 500 mg tablet,extended 500 mg PO QAM 05/26/21 05/26/21 release 24 hr torsemide 20 mg tablet 20 mg PO DAILY 05/26/21 05/26/21 Results & Data (ED) Vital Signs Vital Signs - 24 hr 01/30/22 20:00 01/30/22 20:30 01/30/22 20:40 Temperature 37.2 C Temperature Source Temporal Artery Scan Pulse Rate 62 64 Pulse Rate from SpO2 Sensor 64 64 Respiratory Rate 20 12 Respiratory Effort / Characteristics Non-Labored Spontaneous Respiratory Depth Normal Blood Pressure 78/45 L 77/51 L Blood Pressure Mean 56 59 Pulse Oximetry 94 99 93 Oxygen Delivery Method Room Air Sepsis Recent Fever Within 48 Hours Yes Sepsis New/Unexplained Change in Mental Status Yes Sepsis Action Taken by Nursing No Action Required 01/30/22 20:48 01/30/22 20:48 01/30/22 20:50 Temperature Temperature Source Pulse Rate Pulse Rate from SpO2 Sensor Respiratory Rate Respiratory Effort / Characteristics Respiratory Depth Blood Pressure 89/49 L Blood Pressure Mean 49 62 Pulse Oximetry 68 L Oxygen Delivery Method Sepsis Recent Fever Within 48 Hours Sepsis New/Unexplained Change in Mental Status Sepsis Action Taken by Nursing 01/30/22 20:50 01/30/22 21:00 01/30/22 21:00 Temperature Temperature Source Pulse Rate 64 78 Pulse Rate from SpO2 Sensor 64 Respiratory Rate Respiratory Effort / Characteristics Respiratory Depth Blood Pressure 85/42 L Blood Pressure Mean 56 Pulse Oximetry 98 Oxygen Delivery Method Sepsis Recent Fever Within 48 Hours Sepsis New/Unexplained Change in Mental Status Sepsis Action Taken by Nursing 01/30/22 21:10 01/30/22 21:16 01/30/22 21:16 Temperature Temperature Source Pulse Rate 88 68 Pulse Rate from SpO2 Sensor 64 63 Respiratory Rate Respiratory Effort / Characteristics Respiratory Depth Blood Pressure 94/50 L Blood Pressure Mean 64 Pulse Oximetry 98 96 Oxygen Delivery Method Sepsis Recent Fever Within 48 Hours Sepsis New/Unexplained Change in Mental Status Sepsis Action Taken by Nursing 01/30/22 21:20 01/30/22 21:30 01/30/22 21:30 Temperature Temperature Source Pulse Rate 63 76 Pulse Rate from SpO2 Sensor 64 64 Respiratory Rate Respiratory Effort / Characteristics Respiratory Depth Blood Pressure 90/45 L Blood Pressure Mean 60 Pulse Oximetry 99 97 Oxygen Delivery Method Sepsis Recent Fever Within 48 Hours Sepsis New/Unexplained Change in Mental Status Sepsis Action Taken by Nursing 01/30/22 20:12 01/30/22 20:12 01/30/22 20:06 Temperature Temperature Source Pulse Rate Pulse Rate from SpO2 Sensor Respiratory Rate Respiratory Effort / Characteristics Non-Labored Respiratory Depth Normal Blood Pressure Blood Pressure Mean Pulse Oximetry 99 98 Oxygen Delivery Method Room Air Room Air Sepsis Recent Fever Within 48 Hours Sepsis New/Unexplained Change in Mental Status Sepsis Action Taken by Nursing 01/30/22 22:00 01/30/22 21:40 01/30/22 21:45 Temperature Temperature Source Pulse Rate 64 70 Pulse Rate from SpO2 Sensor 64 63 Respiratory Rate Respiratory Effort / Characteristics Non-Labored Respiratory Depth Normal Blood Pressure Blood Pressure Mean Pulse Oximetry 96 99 Oxygen Delivery Method Sepsis Recent Fever Within 48 Hours Sepsis New/Unexplained Change in Mental Status Sepsis Action Taken by Nursing 01/30/22 21:45 01/30/22 21:50 01/30/22 22:00 Temperature Temperature Source Pulse Rate 63 Pulse Rate from SpO2 Sensor 63 Respiratory Rate Respiratory Effort / Characteristics Respiratory Depth Blood Pressure 98/56 L 85/50 L Blood Pressure Mean 70 61 Pulse Oximetry 98 Oxygen Delivery Method Sepsis Recent Fever Within 48 Hours Sepsis New/Unexplained Change in Mental Status Sepsis Action Taken by Nursing 01/30/22 22:00 01/30/22 22:10 01/30/22 22:51 Temperature Temperature Source Pulse Rate Pulse Rate from SpO2 Sensor 64 68 64 Respiratory Rate Respiratory Effort / Characteristics Respiratory Depth Blood Pressure Blood Pressure Mean Pulse Oximetry 97 94 98 Oxygen Delivery Method Sepsis Recent Fever Within 48 Hours Sepsis New/Unexplained Change in Mental Status Sepsis Action Taken by Nursing 01/30/22 23:00 01/30/22 23:00 01/30/22 23:10 Temperature Temperature Source Pulse Rate Pulse Rate from SpO2 Sensor 64 65 Respiratory Rate Respiratory Effort / Characteristics Respiratory Depth Blood Pressure 107/90 Blood Pressure Mean 95 Pulse Oximetry 97 96 Oxygen Delivery Method Sepsis Recent Fever Within 48 Hours Sepsis New/Unexplained Change in Mental Status Sepsis Action Taken by Nursing 01/30/22 23:15 01/30/22 23:15 01/30/22 23:20 Temperature Temperature Source Pulse Rate Pulse Rate from SpO2 Sensor 64 64 Respiratory Rate Respiratory Effort / Characteristics Respiratory Depth Blood Pressure 90/58 L Blood Pressure Mean 68 Pulse Oximetry 96 96 Oxygen Delivery Method Sepsis Recent Fever Within 48 Hours Sepsis New/Unexplained Change in Mental Status Sepsis Action Taken by [facility] Medications Current Medication List: was personally reviewed by me Laboratory Data Attestation: I reviewed the patient's lab results. Result diagrams: 01/30/22 20:10 01/30/22 20:10 Lab Results 01/30/22 01/30/22 01/30/22 Range/Units 20:10 20:10 20:10 WBC 6.95 (4.8-10.8) K/ul RBC 3.83 L (4.63-6.08) M/uL Hgb 11.1 L (14.0-18.0) g/dl Hct 33.3 L (40.1-51.0) % MCV 86.9 (80.0-100.0) fL MCH 29.0 (25.0-34.0) pg MCHC 33.3 (32.0-36.0) g/dL RDW Std Deviation 50.6 H (36.4-46.3) fL RDW Coeff of Carolyn 15.9 H (11.5-14.5) % Plt Count 216 (130-400) K/uL MPV 10.7 (9.4-12.4) fL Immature Gran % (Auto) 0.4 % Neut % (Auto) 73.7 % Lymph % (Auto) 11.8 % [place] % (Auto) 12.2 % Eos % (Auto) 1.6 % Baso % (Auto) 0.3 % Neut # (Auto) 5.12 (1.4-6.5) K/uL Lymph # (Auto) 0.82 L (1.2-3.4) K/uL Charlotte # (Auto) 0.85 H (0.24-0.82) K/uL Eos # (Auto) 0.11 (0-0.50) K/uL Baso # (Auto) 0.02 (0-0.2) K/uL Immature Gran # (Auto) 0.03 H (0.00-0.02) K/uL PT 13.1 H (9.0-12.0) Seconds INR 1.2 H (0.9-1.1) APTT 32.4 H (21.0-31.0) Seconds PTT Ratio 1.2 VBG pH (7.36-7.41) VBG pCO2 (38-50) mmHg VBG pO2 mmHg VBG HCO3 mmol/L VBG O2 Saturation % VBG Base Excess mEq/L Sodium 125 L (136-145) mmol/L Potassium 4.2 (3.5-5.1) mmol/L Chloride 84 L (98-107) mmol/L Carbon Dioxide 30 (21-32) mmol/L Anion Gap 11 (3-11) BUN 59 H (6-23) mg/dl Creatinine 1.58 H (0.6-1.4) mg/dl Est Cr Clr Drug Dosing Not Reportable Est GFR ( Amer) 46.8 ml/min Est GFR (Non-Af Amer) 40.4 ml/min BUN/Creatinine Ratio 37.3 H (10-20) Glucose 322 H* (70-99(Fasting)) mg/dl POC Glucose (70-99) mg/dl Lactate (0.4-2.0) mmol/L Calcium 8.9 (8.5-10.1) mg/dl Magnesium 1.9 (1.7-2.4) mg/dl Total Bilirubin 1.3 H (0.2-1.0) mg/dl AST 32 (13-39) U/L ALT 14 (7-52) U/L Alkaline Phosphatase 362 H (34-104) U/L Total Protein 8.1 (6.0-8.3) gm/dl Albumin 3.9 (3.4-5.0) gm/dl Globulin 4.2 H (2.5-4.0) gm/dl Albumin/Globulin Ratio 0.9 (0.9-2) SARS-CoV-2, RNA, NAAT (NEGATIVE) 01/30/22 01/30/22 01/30/22 Range/Units 20:52 21:51 22:47 WBC (4.8-10.8) K/ul RBC (4.63-6.08) M/uL Hgb (14.0-18.0) g/dl Hct (40.1-51.0) % MCV (80.0-100.0) fL MCH (25.0-34.0) pg MCHC (32.0-36.0) g/dL RDW Std Deviation (36.4-46.3) fL RDW Coeff of Carolyn (11.5-14.5) % Plt Count (130-400) K/uL MPV (9.4-12.4) fL Immature Gran % (Auto) % Neut % (Auto) % Lymph % (Auto) % Charlotte % (Auto) % Eos % (Auto) % Baso % (Auto) % Neut # (Auto) (1.4-6.5) K/uL Lymph # (Auto) (1.2-3.4) K/uL Charlotte # (Auto) (0.24-0.82) K/uL Eos # (Auto) (0-0.50) K/uL Baso # (Auto) (0-0.2) K/uL Immature Gran # (Auto) (0.00-0.02) K/uL PT (9.0-12.0) Seconds INR (0.9-1.1) APTT (21.0-31.0) Seconds PTT Ratio VBG pH (7.36-7.41) VBG pCO2 (38-50) mmHg VBG pO2 mmHg VBG HCO3 mmol/L VBG O2 Saturation % VBG Base Excess mEq/L Sodium (136-145) mmol/L Potassium (3.5-5.1) mmol/L Chloride (98-107) mmol/L Carbon Dioxide (21-32) mmol/L Anion Gap (3-11) BUN (6-23) mg/dl Creatinine (0.6-1.4) mg/dl Est Cr Clr Drug Dosing Est GFR ( Amer) ml/min Est GFR (Non-Af Amer) ml/min BUN/Creatinine Ratio (10-20) Glucose (70-99(Fasting)) mg/dl POC Glucose 317 H* (70-99) mg/dl Lactate 1.9 (0.4-2.0) mmol/L Calcium (8.5-10.1) mg/dl Magnesium (1.7-2.4) mg/dl Total Bilirubin (0.2-1.0) mg/dl AST (13-39) U/L ALT (7-52) U/L Alkaline Phosphatase (34-104) U/L Total Protein (6.0-8.3) gm/dl Albumin (3.4-5.0) gm/dl Globulin (2.5-4.0) gm/dl Albumin/Globulin Ratio (0.9-2) SARS-CoV-2, RNA, NAAT NEGATIVE (NEGATIVE) 01/30/22 01/30/22 Range/Units 22:47 22:49 WBC (4.8-10.8) K/ul RBC (4.63-6.08) M/uL Hgb (14.0-18.0) g/dl Hct (40.1-51.0) % MCV (80.0-100.0) fL MCH (25.0-34.0) pg MCHC (32.0-36.0) g/dL RDW Std Deviation (36.4-46.3) fL RDW Coeff of Carolyn (11.5-14.5) % Plt Count (130-400) K/uL MPV (9.4-12.4) fL Immature Gran % (Auto) % Neut % (Auto) % Lymph % (Auto) % Charlotte % (Auto) % Eos % (Auto) % Baso % (Auto) % Neut # (Auto) (1.4-6.5) K/uL Lymph # (Auto) (1.2-3.4) K/uL Charlotte # (Auto) (0.24-0.82) K/uL Eos # (Auto) (0-0.50) K/uL Baso # (Auto) (0-0.2) K/uL Immature Gran # (Auto) (0.00-0.02) K/uL PT (9.0-12.0) Seconds INR (0.9-1.1) APTT (21.0-31.0) Seconds PTT Ratio VBG pH 7.38 (7.36-7.41) VBG pCO2 55 H (38-50) mmHg VBG pO2 46 mmHg VBG HCO3 33 mmol/L VBG O2 Saturation 73.4 % VBG Base Excess 5.8 mEq/L Sodium (136-145) mmol/L Potassium (3.5-5.1) mmol/L Chloride (98-107) mmol/L Carbon Dioxide (21-32) mmol/L Anion Gap (3-11) BUN (6-23) mg/dl Creatinine (0.6-1.4) mg/dl Est Cr Clr Drug Dosing Est GFR ( Amer) ml/min Est GFR (Non-Af Amer) ml/min BUN/Creatinine Ratio (10-20) Glucose (70-99(Fasting)) mg/dl POC Glucose 146 H (70-99) mg/dl Lactate (0.4-2.0) mmol/L Calcium (8.5-10.1) mg/dl Magnesium (1.7-2.4) mg/dl Total Bilirubin (0.2-1.0) mg/dl AST (13-39) U/L ALT (7-52) U/L Alkaline Phosphatase (34-104) U/L Total Protein (6.0-8.3) gm/dl Albumin (3.4-5.0) gm/dl Globulin (2.5-4.0) gm/dl Albumin/Globulin Ratio (0.9-2) SARS-CoV-2, RNA, NAAT (NEGATIVE) Administered Medications Discontinued Medications Sodium Chloride (Nss 1000ml) 1,000 mls @ 999 mls/hr IV .Q1H1M ONE Stop: 01/30/22 22:30 Last Admin: 01/30/22 21:40 Dose: 999 mls/hr Documented By: JONAS Cefepime HCl (Maxipime) 2,000 mg in 20 mls @ 5 mls/min IV NOW STA; Protocol Stop: 01/30/22 21:41 Last Admin: 01/30/22 21:48 Dose: 5 mls/min Documented By: JONAS Insulin Human Regular (Novolin-R Insulin Per Unit Charge) 8 units IV NOW STA Stop: 01/30/22 21:31 Last Admin: 01/30/22 21:39 Dose: 8 units Documented By: JONAS Co-signed By: JAZMIN Ioversol (Optiray 320 100ml) 94 ml IV ONCE ONE Stop: 01/30/22 22:24 Last Admin: 01/30/22 22:23 Dose: 94 ml Documented By: ALBERTINA Ondansetron HCl (Ondansetron Inj 2 Mg/Ml 2 Ml Vial) 4 mg IV NOW STA Stop: 01/30/22 22:37 Last Admin: 01/30/22 22:55 Dose: 4 mg Documented By: JONAS Imaging Data Radiologist's Impression: Chest X-Ray 01/30/22 20:06 XR chest 1V portable HISTORY: Hypotension. Sepsis COMPARISON: Chest 12/01/2014. FINDINGS: There are low lung volumes. Mild elevation the right hemidiaphragm. Bibasilar linear densities favor subsegmental atelectasis. Otherwise, no focal lung consolidations to suggest pneumonia. There is mild central pulmonary vascular congestion without overt edema.. The cardiac silhouette is mildly enlarged. No pleural effusions. No pneumothorax. IMPRESSION: 1. Low lung volumes with bibasilar linear densities. This favors subsegmental atelectasis. 2. Cardiomegaly with mild central pulmonary vascular congestion. ACT 112: Negative or not required by law. Electronically signed by: Papo [place] M.D. 01/30/2022 8:[address] of the abdomen pelvis with IV contrast: Sludge in the gallbladder, no acute cholecystitis. There was a layering right pleural effusion that was 2 cm in thickness. Cardiomegaly was seen. No diverticulitis although diverticuli were noted. The bladder seemed a bit thickened secondary to underdistention. Discharge Plan Visit Data Chief Complaint: Hyperglycemia Stated Complaint: DIZZY, SUGER HIGH, CONFUSION ED Provider: Vu Castle Discharge Problem: Hypotension, Hyperglycemia, Cellulitis, Failure of outpatient treatment, Acute hyponatremia Patient Disposition: Admitted As Inpatient Condition: Fair Forms Stand Alone Forms: [facility] [employer] Prescriptions Prescriptions: No Action atorvastatin 20 mg tablet 20 mg PO DAILY torsemide 20 mg tablet 20 mg PO DAILY lisinopril 5 mg tablet 5 mg PO QAM metformin 500 mg tablet extended release 24 hr 500 mg PO QAM Jardiance 10 mg tablet 10 mg PO DAILY Trulicity 0.75 mg/0.5 mL pen injector 0.75 mg SUBCUT WK Referrals Referrals: Frederick Manuel, [Outside Practitioners] -
[2022-01-30] MEDS ORDERED: OPTIRAY 320 100ml IV ONE (22:23)
[2022-01-30] MEDS ORDERED: ONDANSETRON INJ 2 MG/ML 2 ML VIAL IV STA (22:36)
[2022-01-30 22:56] LABS: Base Excess VBG 5.8 mEq/L; HCO3 VBG 33 mmol/L; Oxygen Saturation VBG 73.4 %; PCO2 VBG 55 mmHg (38-50); PO2 VBG 46 mmHg; pH VBG 7.38 (7.36-7.41)
[2022-01-30] MEDS ORDERED: SODIUM CHLORIDE 0.9% 1000ML 500 ML IV ONE (23:27)
[2022-01-31] MEDS ORDERED: SODIUM CHLORIDE 0.9% 1000ML 1,000 ML IV SCH (02:58)
[2022-01-31] MEDS ORDERED: NITROGLYCERIN SL 0.4 MG/TAB TAB SL PRN (02:58)
[2022-01-31] MEDS ORDERED: POLYETHYLENE (MIRALAX) 17 GM PACK PO PRN (02:58)
[2022-01-31] MEDS ORDERED: ACETAMINOPHEN 325 MG TAB PO PRN (02:58)
[2022-01-31 04:33] LABS: Appearance Urine Clear (Clear); Bilirubin Urine Negative (Negative); Blood Urine Negative (Negative); Color Urine Yellow; Glucose Urine UA Negative (Negative); Ketones Urine Negative (Negative); Leukocyte Esterase Urine Negative (Negative); Nitrite Urine Negative (Negative); Protein Urine Negative (Negative); Urobilinogen Urine Negative (Negative)
[2022-01-31] MEDS ORDERED: cefTRIAXone SODIUM 2,000 MG in DEXTROSE 5% 50 ML IV SCH (06:00)
--- NOTE | 2022-01-31 06:06 | History and Physical Report ---
DATE OF ADMISSION: 01/31/2022. CHIEF COMPLAINT: Hyperglycemia, LOIS, hypotension. HISTORY OF PRESENT ILLNESS: An 81-year-old male with past medical history significant for type 2 diabetes, hyperlipidemia, diabetic retinopathy, diabetic neuropathy, history of dehydration, metabolic encephalopathy, pneumonia, history of AFib, history of chronic systolic CHF, hypertension, history of cholelithiasis, history of rectus sheath hematoma, history of bilateral leg edema, cellulitis of lower extremities, anemia, history of COVID-19, ambulatory dysfunction, generalized weakness. The patient was recently in the [facility], apparently with lower extremity redness and swelling . He was seen by cardiology and recommended IV diuretics and at discharge Lasix was changed to torsemide 40 mg p.o. b.i.d.,and , lisinopril, which was on hold during hospitalization because of soft blood pressure was restarted. Also cholelithiasis was found on ultrasound and CT abdomen and pelvis and general surgery recommended elective cholecystectomy and the patient was also placed on Keflex for possible leg cellulitis for 3 days. The patient was at home and his son found that his blood pressure was low and seemed confused and brought him here in the hospital. Systolic blood pressure was in the 80s. He was given a dose of cefepime, fluids. Sodium was 125. Blood sugar was 322 and with insulin, sugar came down to 146. Lactate 1.9. and creatinine is 1.5. Currently resting comfortably. Denies any headache. No blurred visions, no earache, no runny nose, no sore throat. No cough. Denies any fevers. No chest pain, no shortness of breath, no nausea, no abdominal pain. Normal bowel and bladder movements. ALLERGIES: No known drug allergies. PAST MEDICAL HISTORY: As mentioned above. PAST SURGICAL HISTORY: Bowel resection for small bowel obstruction, carpal tunnel surgery, incisional hernia repair x2, back surgery, appendectomy, cataract surgery. MEDICATIONS: The patient is on Eliquis 5 mg p.o. b.i.d., atorvastatin 20 mg p.o. daily, Keflex 500 mg p.o. t.i.d. for 3 days, Jardiance 10 mg p.o. daily, lisinopril 5 mg p.o. a.m., metformin 1000 mg p.o. b.i.d., torsemide 40 mg p.o. b.i.d. FAMILY HISTORY: Significant for father has diabetes, son has diabetes. SOCIAL HISTORY: . No smoking. Alcohol, one per week. Occasional marijuana. REVIEW OF SYSTEMS: As per HPI. Rest of review of systems is negative. PHYSICAL EXAMINATION: GENERAL: The patient is of moderate build, not in acute distress. VITAL SIGNS: Temperature 37.2, pulse 60, respiratory rate 12, blood pressure 184/53, oxygen 95% on room air. HEENT: Pupils equal, round and reactive to light. Oral mucosa moist. NECK: No JVD or neck masses. CARDIOVASCULAR: S1 and S2 heard. Regular rate and rhythm. No murmur, no gallop. RESPIRATORY SYSTEM: Normal AP diameter. No accessory muscle use. No wheezing, no crackles. ABDOMEN: Soft, bowel sounds present, nontender, no distention. CENTRAL NERVOUS SYSTEM: Cranial nerves II through XII are grossly intact, nonfocal. EXTREMITIES: Pedal edema present. Mild erythematous changes in lower extremities. LABORATORY DATA: WBC 6.9, hemoglobin 11.1, hematocrit 33.3, platelets 216. PT 13.1, INR 1.2, APTT 32.4. Sodium 135, potassium 4.2, chloride 84, CO2 30, BUN 59, creatinine 1.5, serum glucose 322. Lactate 1.9, calcium 8.9, magnesium 1.9, total bilirubin 1.3, AST 32, ALT 14, alkaline phosphatase 362. SARS-CoV-2 rapid test negative. Venous blood gas shows pH of 7.3, pCO2 of 55, pO2 of 46. Chest x-ray: Low volumes. No acute findings. EKG: Sinus rhythm with first-degree AV block at a rate of 64. Nonspecific intraventricular conduction block seen. IMAGING DATA: CT of abdomen and pelvis with contrast, no evidence of small bowel obstruction, possible constipation. ASSESSMENT AND PLAN: This 81-year-old male presents with confusion, hypotension, found to have hyperglycemia and LOIS, 1. Hypotension, recently Lasix was changed to torsemide 40 mg b.i.d. and also on lisinopril, which we will hold. Getting fluids. We will follow the blood pressure. 2. LOIS. Holding lisinopril and Lasix. Getting fluids. Follow the labs. 3. Hyperglycemia. The patient is diabetic, improved with insulin in the ER. We will continue with Lantus and ISS. We will hold his metformin and Jardiance. Follow blood sugars, follow HbA1c levels. 4. Hyponatremia,Possible volume depleted , elevated blood sugars also contributing . Getting fluids. We will follow the repeat labs in the a.m. 5. Bilateral lower extremity cellulitis, supposed to get antibiotic until 02/04/2022. We will continue with Rocephin while in the hospital. Follow the response. 6. Chronic systolic CHF, EF 45% on recent echo. Holding torsemide. Getting fluids. Monitor for any volume overload. 7. History of hyperlipidemia: Continue statin. 8. History of atrial fibrillation. Continue Eliquis. 9. Ambulatory dysfunction. PT, OT when stable. 10. Deep venous thrombosis prophylaxis: On Eliquis. DISPOSITION: Admit to Med/Surg tele. PT/OT prior to discharge. Social service to help with discharge planning. Job ID: [id number]
[2022-01-31 06:08] LABS: BUN Creatinine Ratio 42.1 (10-20); Calcium 8.5 mg/dl (8.5-10.1); Creatinine Clr Calc Pharmacy 43.4 ml/min; Est GFR (African American) 54.2 ml/min; Est GFR (Non-African American) 46.8 ml/min; Magnesium 1.8 mg/dl (1.7-2.4); Potassium 4.2 mmol/L (3.5-5.1)
[2022-01-31 06:10] LABS: Basophils # (auto) 0.02 K/uL (0-0.2); Basophils % (auto) 0.3 %; Eosinophils # (auto) 0.17 K/uL (0-0.50); Eosinophils % (auto) 2.4 %; Hematocrit (blood only) 31.4 % (40.1-51.0); Hemoglobin 10.4 g/dl (14.0-18.0); Immature Granulocytes # (auto) 0.03 K/uL (0.00-0.02); Immature Granulocytes % (auto) 0.4 %; Lymphocytes # (auto) 1.12 K/uL (1.2-3.4); Lymphocytes % (auto) 15.6 %; Mean Corpuscular Hemoglobin 29.1 pg (25.0-34.0); Mean Corpuscular Hgb Conc 33.1 g/dL (32.0-36.0); Mean Platelet Volume 10.7 fL (9.4-12.4); Monocytes # (auto) 0.92 K/uL (0.24-0.82); Monocytes % (auto) 12.8 %; Neutrophils % (auto) 68.5 %; Platelet Count 199 K/uL (130-400); RDW Coefficient of Variation 16.3 % (11.5-14.5); RDW Standard Deviation 52.2 fL (36.4-46.3); Red Blood Count 3.57 M/uL (4.63-6.08); White Blood Count 7.16 K/ul (4.8-10.8)
--- NOTE | 2022-01-31 07:22 | CT Scan Report ---
CT abd pelvis IV con only CLINICAL HISTORY: r sided pain, vomiting COMPARISON STUDY: No previous studies for comparison. CT DOSE: 465.45 mGy.cm TECHNIQUE: Standard CT of the Abdomen and Pelvis was performed with IV contrast. A dose lowering cammie hnique was utilized adhering to the principles of ALARA. Contrast Volume: Optiray 320, 94 ml. The patient did not receive oral contrast. FINDINGS: Lung base: There is evidence for atelectasis within the lateral segment of the right middle lobe. Thi s also a small right pleural effusion and compressive atelectasis at the right lung base. Left lung b ase is clear. The heart is enlarged. There is a nodular density present within the right chest wall m easuring 3.4 x 2.2 cm of uncertain etiology. Ultrasound would be the study of choice for further eval uation. Abdominal cavity: There is no evidence for abdominal mass, adenopathy or ascites. Liver: There is homogeneous attenuation of the liver parenchyma. There is no evidence for enhancing m ass lesion. Spleen: There is homogeneous attenuation of the splenic parenchyma. There is no enhancing mass lesion . Pancreas: There is homogeneous attenuation of the pancreatic parenchyma. There is no evidence for mas s lesion or peripancreatic fluid collection. Gall Bladder: There is evidence for cholelithiasis with no definite CT evidence for acute cholecystit is. Adrenal glands: The adrenal glands are normal in size and attenuation. There is no evidence for enhan cing mass lesion. Kidneys: There is homogeneous attenuation of the renal parenchyma bilaterally. There is no evidence f or renal calculus or hydronephrosis. There is no evidence for enhancing mass. Bowel: The stomach is distended with liquid and food stuff. There are fluid-filled loops of small bow el seen throughout the abdomen and pelvis without evidence for disproportionate dilatation or obstruc tion. The findings are characteristic of an ileus versus gastroenteritis. There is moderate fecal sta sis and mild fecal impaction. There is no evidence for obstruction. Is sigmoid diverticulosis without evidence for diverticulitis. There are no inflammatory changes present. There is no evidence for shiloh e air. Bladder: The bladder is within normal limits with no evidence for focal mass, calculus or diverticulu m. There is diffuse thickening of the wall bladder characteristic of chronic bladder outlet obstructi on. : There is no evidence for pelvic mass or adenopathy. There is no evidence for pelvic ascites. The prostate is mildly enlarged. Vasculature: There is no evidence for aneurysmal dilatation of the abdominal aorta. Atherosclerotic c alcification is present. Osseous structures: There is no acute osseous pathology. Degenerative changes are seen within the spi ne with evidence for previous internal fixation. Patient is also status post right hip replacement wi th imaging artifact. IMPRESSION: 1. Cholelithiasis with no definite CT evidence for acute cholecystitis. 2. Moderate fecal stasis and impaction without evidence for obstruction. 3. Small bowel ileus versus gastroenteritis. 4. Mild diverticulosis without evidence for diverticulitis. 5. Small right pleural effusion and right basilar atelectasis. This also right middle lobe atelectasi s. 6. Additional nonacute findings are delineated above ACT 112: Negative or not required by law. Electronically signed by: Benito Kim M.D. 01/31/2022 7:21 AM
[2022-01-31 07:30] LABS: Estimated Average Glucose 192 mg/dl; Hemoglobin A1C 8.3 % (4.5-5.6)
[2022-01-31] MEDS: INSULIN ASPART PER UNIT SC SCH ×4 (08:26→20:21)
[2022-01-31] MEDS: LANTUS PER UNIT CHARGE SQ SCH (08:27)
[2022-01-31] MEDS: APIXABAN 2.5 MG TAB PO SCH ×2 (08:31→20:20)
[2022-01-31] MEDS: ATORVASTATIN 20 MG TAB PO SCH (08:31)
[2022-01-31] MEDS ORDERED: APIXABAN 5 MG TABLET PO SCH (09:00)
[2022-01-31] MEDS: POLYETHYLENE (MIRALAX) 17 GM PACK PO SCH ×2 (10:26→20:21)
--- NOTE | 2022-01-31 12:28 | Electrocardiogram Report ---
Test Reason : Blood Pressure : / mmHG Vent. Rate : 064 BPM Atrial Rate : 064 BPM P-R Int : 280 ms QRS Dur : 142 ms QT Int : 454 ms P-R-T Axes : 000 -74 123 degrees QTc Int : 468 ms Poor data quality, interpretation may be adversely affected Sinus rhythm with 1st degree A-V block Left axis deviation Non-specific intra-ventricular conduction block Inferior infarct , age undetermined Abnormal ECG When compared with ECG of 29-SEP-2017 15:08, Questionable change in QRS duration Inferior infarct is now Present Confirmed by Oleksandr Russell ([id number]) on 01/31/2022 12:27:59 PM Referred By: REFERRED SELF Confirmed By:Salvatore Russell
[2022-01-31] MEDS ORDERED: VANCOMYCIN CONSULT ACTIVE PRN (16:53)
[2022-01-31] MEDS ORDERED: PIPERACILLIN/TAZOBACTAM 3.375 GM in DEXTROSE 5% 100 ML IV ONE (17:00)
--- NOTE | 2022-01-31 17:01 | Communication Note ---
Date of Service: January 31, 2022 Mr Tam Weaver was admitted earlier today after just being discharged from [facility] yesterday. He was seen and evaluated in his room 256-1. His chart was reviewed. I also spoke with his son, Denyns Weaver, since patient himself is a somewhat poor historian. According to his son, upon arrival home from [place], he was noted to be confused and dazed and brought to [facility] for further evaluation. Upon arrival here, he was noted to be hypotensive, hyperglycemic. A/P 1. Hypotension. Concern for sepsis -Concern for sepsis, he received NSS at 100cc/hr (finished 1L) since being here but BP remains persistently low. -will continue NSS at 100cc/hr -CXR shows atelectasis. CT A/P shows cholelithiasis but no cholecystitis, does show evidence of gastroenteritis (patient with nausea/vomiting at home but no diarrhea, history of c diff earlier this year) -will obtain TTE to evaluate further, check TSH, Cortisol, procalcitonin -On exam he does appear hypovolemic. -UA unremarkable. Blood cultures are pending -He was being treated for bilateral lower extremity cellulitis and discharged on oral keflex. He received 1 dose Cefepime in the ER yesterday and started on ceftriaxone here. Will discontinue ceftriaxone and start vancomycin/zosyn pending blood culture Remaining assessment and plan per H&P by Dr Ennis from today.
[2022-01-31] MEDS ORDERED: VANCOMYCIN HCL 1,750 MG in SODIUM CHLORIDE 0.9% 500 ML IV ONE (17:30)
[2022-01-31] MEDS: SODIUM CHLORIDE 0.9% 1000ML 1,000 ML IV SCH (17:39)
[2022-01-31 17:40] LABS: Basophils # (auto) 0.01 K/uL (0-0.2); Basophils % (auto) 0.2 %; Eosinophils # (auto) 0.18 K/uL (0-0.50); Eosinophils % (auto) 2.9 %; Hematocrit (blood only) 33.2 % (40.1-51.0); Hemoglobin 10.9 g/dl (14.0-18.0); Immature Granulocytes # (auto) 0.02 K/uL (0.00-0.02); Immature Granulocytes % (auto) 0.3 %; Lymphocytes # (auto) 1.23 K/uL (1.2-3.4); Lymphocytes % (auto) 19.6 %; Mean Corpuscular Hemoglobin 29.2 pg (25.0-34.0); Mean Corpuscular Hgb Conc 32.8 g/dL (32.0-36.0); Mean Platelet Volume 10.2 fL (9.4-12.4); Monocytes # (auto) 0.97 K/uL (0.24-0.82); Monocytes % (auto) 15.5 %; Neutrophils # (auto) 3.85 K/uL (1.4-6.5); Neutrophils % (auto) 61.5 %; Platelet Count 188 K/uL (130-400); RDW Coefficient of Variation 16.4 % (11.5-14.5); RDW Standard Deviation 53.4 fL (36.4-46.3); Red Blood Count 3.73 M/uL (4.63-6.08); White Blood Count 6.26 K/ul (4.8-10.8)
[2022-01-31 18:06] LABS: Albumin Globulin Ratio 0.9 (0.9-2); Albumin Level 3.9 gm/dl (3.4-5.0); BUN Creatinine Ratio 42.1 (10-20); Bilirubin,Total 1.1 mg/dl (0.2-1.0); Calcium 8.8 mg/dl (8.5-10.1); Creatinine Clr Calc Pharmacy 41.9 ml/min; Est GFR (Non-African American) 44.8 ml/min; Globulin 4.4 gm/dl (2.5-4.0); Potassium 4.8 mmol/L (3.5-5.1); Total Protein 8.3 gm/dl (6.0-8.3)
[2022-01-31 18:20] LABS: Thyroid Stimulating Hormone 4.907 uIu/ml (0.300-4.500)
[2022-01-31 18:58] LABS: T4 Free Thyroxine 1.11 ng/dl (0.61-1.60)
--- NOTE | 2022-01-31 19:52 | Surgery Consultation ---
Date of Consultation January 31, 2022 Assessment & Plan (1) Cholelithiasis: At the present time the patient is asymptomatic in regard to his cholelithiasis. We therefore recommend proceeding as follows: Follow the patient symptomatically Plans can be made for elective cholecystectomy. If patient wishes he can see Dr. Ortega in the clinic following discharge at which time he can discuss potential cholecystectomy As noted the patient takes Eliquis and will be preferable for patient be off this medication for several days prior to undergoing surgical intervention to decrease the risk of perioperative bleeding Remainder of plan as directed by primary service History of Present Illness Reason for Consultation: Cholelithiasis Attending Physician: Jahaira Villalpando MD History of Present Illness This is an 81-year-old male presented to the emergency department at [facility] secondary to confusion, hypoglycemia, and hypotension. It should be noted that the patient was a poor historian but was able to answer some questions. Review of records was helpful in obtaining historical information. Patient was recently in [facility] where he was noted to have erythema and swelling of his lower extremities and was treated with cellulitis. He was seen by cardiology during this admission and patient was treated with intravenous diuresis was ultimately discharged home with reported Lasix dose of 40 mg twice ID. Patient was discharged home on Keflex for 3 days due to concern for leg cellulitis. Patient reportedly had abdominal imaging revealing cholelithiasis. He was reportedly seen by general surgery at [facility] who recommended an elective cholecystectomy. Upon discharge from [facility] the patient's son was checking on him and noted that his father's blood pressure was low and he seemed somewhat confused so he was brought to the [facility] emergency department. Labs and imaging performed at [facility] thus far have included a chest x-ray that showed some pulmonary vascular congestion with no evidence of pneumonia. A CT scan of the abdomen pelvis was performed that showed cholelithiasis with no evidence of cholecystitis. There was some distention of patient's bowel but no evidence of obstruction. This was felt to potentially represent an ileus versus gastroenteritis. Labs including CBC were white blood cell count was noted to be normal. Hemoglobin and hematocrit were noted to be 11.1 and 33.3. Platelet count is normal. Coagulation studies showed an INR of 1.2. He did have a VBG that showed a normal pH and a PCO2 of 55 with a PO2 of 46 and a bicarb of 33. Chemistry profile showed sodium was 125 with a potassium of 4.2. BUN and creatinine were noted to be 59 and 1.5. Patient was hyperglycemic with a glucose level of 322. Lactic acid level was not elevated. He did have slight elevation of his total bilirubin at 133. Transaminases were nonelevated and patient's alkaline phosphatase was elevated at 362. Patient did have a TSH checked during this admission which was noted to have a value of 4.9 which was elevated. Urinalysis was performed and was not indicative of infection and a COVID test was negative. I question the patient about symptomatology related to gallstones. Patient notes that he does not have any abdominal pain. He denies any recent postprandial pain. He denies any nausea or vomiting. Denies any angina bowel habits. He denies any fevers, shakes, or chills. It is nowhere the mention that although the patient denied the above symptoms he apparently reported to the treating emergency room physician that he was having some generalized right- sided abdominal pain and did have several bouts of nausea and vomiting. As noted previously he did deny the symptoms to me. Since admission to [facility] the patient has been treated with broad-spectrum antibiotics. Initially in the emergency department he did receive cefepime and a dose of Rocephin but his antibiotics have since been switched to Zosyn and vancomycin. He has had blood culture sent which are pending. It is also noteworthy mention that the patient does take Eliquis for history of atrial fibrillation and is currently receiving this medication. At the time of my interview the patient was sitting up at bedside. He was resting comfortably and he was in no distress and offers no complaints Allergies Allergy/AdvReac Type Severity Reaction Status Date / Time No Known Allergies Allergy Unverified 05/26/21 14:42 Home Medications Medication Instructions Recorded Confirmed Type atorvastatin 20 mg tablet 20 mg PO DAILY 05/26/21 05/26/21 History empagliflozin 10 mg tablet 10 mg PO DAILY 05/26/21 05/26/21 History (Jardiance) lisinopril 5 mg tablet 5 mg PO QAM 05/26/21 05/26/21 History metformin 500 mg tablet,extended 1,000 mg PO BID 05/26/21 05/26/21 History release 24 hr torsemide 20 mg tablet 40 mg PO BID 05/26/21 05/26/21 History apixaban 5 mg tablet (Eliquis) 5 mg PO BID 01/31/22 01/31/22 History cephalexin 500 mg capsule 500 mg PO TID 01/31/22 01/31/22 History Patient History Medical History DM type 2 (diabetes mellitus, type 2) HLD (hyperlipidemia) HTN (hypertension) Surgical History History of bowel resection Social History Smoking Status: Never smoker Second Hand Exposure: No; Do You Dip or Chew Tobacco: Yes; Hx Alcohol Use: Yes Alcohol type: beer Hx Substance Use: Yes Last Used Substance: Unknown Preferred Language: Mohawk Communication Ability: Effective Manager Legal Required: No Beliefs That Will Affect Care: None Current Living Situation: Family Current Living Situation Comment: Lives in story below son Feels Safe at Home: Yes Safety Concerns: Feels Safe At This Time Assistive Devices: Cane, Denture - Upper, Denture - Lower, Glasses and Walker Review of Systems Constitutional: no fever and no chills Eyes: no eye pain Ear, Nose, Mouth, Throat: no ear pain Respiratory: no cough Cardiovascular: no chest pain Gastrointestinal: no abdominal pain, no nausea and no vomiting Genitourinary: no dysuria Musculoskeletal: no back pain Integumentary: no rash Neurologic: no localized weakness Physical Exam 2 Constitutional: well developed and well nourished; no acute distress Eyes: no conjunctival abnormality ENMT: Ears: no hearing impairment Mouth: no oropharynx abnormality Neck: trachea midline Respiratory: normal respiratory effort; no respiratory distress and no labored breathing Breath sounds noted to have a slight decrease at the bases Cardiovascular: Rate/Rhythm: regular rate and regular rhythm Gastrointestinal (Abdomen): At the time of my exam the patient's abdomen was s oft, nonrigid, nontender. Bowel sounds are present. There is no rebound tenderness or guarding. There is no pain with palpation in any area of his abdomen. Musculoskeletal: Patient has generalized pain to his lower extremities with palpation bilaterally. (I suspect this is due to diabetic neuropathy) there is minimal erythema of his lower extremities bilaterally. There are no open areas of drainage. Skin: no rashes Neurologic: moves all extremities Results & Data ([facility]) Vital Signs (Past 12 Hours) Vital Signs Temp Pulse Pulse Resp BP BP Pulse Ox 01/31/22 19:37 36.6 C 64 18 124/68 98 01/31/22 15:18 64 01/31/22 14:45 37.0 C 76 16 87/68 L 98 01/31/22 11:57 36.3 C L 72 12 89/62 L 97 01/31/22 08:05 36.5 C 63 14 86/44 L 97 O2 Del Method 01/31/22 19:37 Room Air 01/31/22 15:18 01/31/22 14:45 Room Air 01/31/22 11:57 Room Air 01/31/22 08:05 Room Air PG Care Time/CCT Total # of Minutes Spent Total Time Spent with Patient: Total time spent is greater than 50% in coordination of care (as documented) at patient's floor/unit and/or counseling patient: Coding Level of Care Code 98601 Inpt Consult Level 5 Diagnoses Cholelithiasis K80.20
[2022-01-31] MEDS: PIPERACILLIN/TAZOBACTAM 3.375 GM in DEXTROSE 5% 100 ML IV SCH (21:21)
[2022-02-01] MEDS: SODIUM CHLORIDE 0.9% 1000ML 1,000 ML IV SCH (03:44)
[2022-02-01] MEDS: PIPERACILLIN/TAZOBACTAM 3.375 GM in DEXTROSE 5% 100 ML IV SCH ×3 (05:16→21:12)
[2022-02-01] MEDS: ATORVASTATIN 20 MG TAB PO SCH (08:24)
[2022-02-01] MEDS: APIXABAN 2.5 MG TAB PO SCH (08:24)
[2022-02-01] MEDS: POLYETHYLENE (MIRALAX) 17 GM PACK PO SCH ×2 (08:25→21:12)
[2022-02-01] MEDS: INSULIN ASPART PER UNIT SC SCH ×4 (08:25→21:12)
[2022-02-01] MEDS: SACCHAROMYCES BOULARDII 250 MG CAP PO SCH (08:25)
[2022-02-01] MEDS: LANTUS PER UNIT CHARGE SQ SCH (08:26)
--- NOTE | 2022-02-01 10:42 | Pharmacy Report ---
Pharmacy [facility] Short Note - Date of Service February 01, 2022 - Assessment & Plan Assessment 81 year old M admitted for sepsis and found to have bilateral lower extremity cellulitis. He was recently admitted at [facility] and received treatment for cellulitis. He was discharged on Keflex for 3 days. He was started on Rocephin here in the ED then switch to Vancomycin + Zosyn yesterday empirically. Blood cultures pending. Plan Vancomycin * Loading dose: 1750 mg (20 mg/kg) IV x1 given yesterday evening. * Maintenance dose: 1250 mg (14.5 mg/kg) IV every 24 hours ordered for 48hrs only (empiric indication). * Regimen is predicted to achieve target AUC/SAVANNA of 400-600 mg/L.hr * A Vancomycin level will be ordered if therapy continues beyond 48 hrs. Pharmacy will continue to follow and will adjust dose/frequency as necessary. Thank you.
[2022-02-01 11:00] LABS: Basophils # (auto) 0.01 K/uL (0-0.2); Basophils % (auto) 0.2 %; Eosinophils # (auto) 0.21 K/uL (0-0.50); Eosinophils % (auto) 4.2 %; Hematocrit (blood only) 31.3 % (40.1-51.0); Hemoglobin 10.3 g/dl (14.0-18.0); Immature Granulocytes # (auto) 0.02 K/uL (0.00-0.02); Immature Granulocytes % (auto) 0.4 %; Lymphocytes # (auto) 0.74 K/uL (1.2-3.4); Lymphocytes % (auto) 14.9 %; Mean Corpuscular Hemoglobin 29.3 pg (25.0-34.0); Mean Corpuscular Hgb Conc 32.9 g/dL (32.0-36.0); Mean Corpuscular Volume 89.2 fL (80.0-100.0); Mean Platelet Volume 10.4 fL (9.4-12.4); Monocytes # (auto) 0.96 K/uL (0.24-0.82); Monocytes % (auto) 19.3 %; Neutrophils # (auto) 3.03 K/uL (1.4-6.5); Platelet Count 177 K/uL (130-400); RDW Coefficient of Variation 16.6 % (11.5-14.5); RDW Standard Deviation 54.1 fL (36.4-46.3); Red Blood Count 3.51 M/uL (4.63-6.08); White Blood Count 4.97 K/ul (4.8-10.8)
[2022-02-01 11:47] LABS: Albumin Globulin Ratio 0.9 (0.9-2); Albumin Level 3.5 gm/dl (3.4-5.0); Bilirubin,Total 1.7 mg/dl (0.2-1.0); Calcium 8.7 mg/dl (8.5-10.1); Creatinine Clr Calc Pharmacy 51.4 ml/min; Est GFR (African American) 59.9 ml/min; Est GFR (Non-African American) 51.7 ml/min; Globulin 3.7 gm/dl (2.5-4.0); Total Protein 7.2 gm/dl (6.0-8.3)
[2022-02-01] MEDS ORDERED: VANCOMYCIN HCL 1,250 MG in SODIUM CHLORIDE 0.9% 250 ML IV SCH (12:00)
[2022-02-01 12:17] LABS: Potassium 4.2 mmol/L (3.5-5.1)
--- NOTE | 2022-02-01 12:26 | Gastrointestinal Consultation ---
Date of Consultation February 01, 2022 Assessment & Plan (1) Cholelithiasis: (2) Acute hyponatremia: (3) Elevated LFTs: Plan He has had moderately severe nausea and mild abd discomfort and poor po intake now with hyponatremia and mildly elevated LFTs ( T Bili 1.1, AST 52, ALk Phos 372, ALT normal at 23). w hypotension, he meets sepsis criteria. A biliary source such as choledocholithiasis w cholangitis is considered. - Hold Eliquis - Will cover cholangitis with broad spectrum antibiotics. - MRCP today - Follow LFTs - May have a liquid diet today. - antiemetics - If continued continue nausea, then will go forward with EGD on Friday. If continued concern for choledocholithiasis/cholangitis then will go forward with EUS/ERCP on Friday. Supervising Physician Co-Signing Physician Notes The patient is very hard of hearing but reports having no abdominal discomfort or nausea. The patient did have an MRCP today which showed no evidence of a filling defect within the common bile duct. As the patient does not have evidence of cholangitis he could certainly be discharged for outpatient endoscopic evaluation. If the patient is in the hospital early next week we will try to make arrangements for EUS and possible ERCP on Friday or Friday pending OR availability Physical examination No icterus Obese abdomen soft Impression: Patient with cholelithiasis on prior imaging, there was an initial concern for choledocholithiasis however imaging has been negative and there appears to be no evidence of cholangitis at this time. Would recommend endoscopic ultrasound as the next step in therapy and evaluation, this could be done early next week as an inpatient or as an outpatient over the next 1 to 2 weeks. If the endoscopic ultrasound is positive we would then perform an ERCP in the same setting. As the patient is on Eliquis procedure can either be offered in a few days or as an outpatient please call with any questions or concerns over the week History of Present Illness Reason for Consultation: abnormal LFTs, cholelithiasis Requesting Physician: Dr. Villalpando Attending Physician: Jahaira Villalpando MD History of Present Illness Mr. Tam Weaver is an 81 yr old male pt of Dr. Diehl ([facility]) w a hx of DM2, Hyperlipidemia, HTN diabetic retinopathy and neuropathy, A fib on Eliquis, CHF, presented to the ED yesterday for weakness. He had been tx as an IP at [facility] for cellulitis, being dc'ed on Kelfex x 3 days on 01/30/22. He was brought to [facility] ED for weakness. On arrival, hyperglycemic (improved to 200s now and hypotension (now resolved w IV fluids). LFTs mildly elevated at T Bili 1.1, AST 52, ALT 23, Alk Phos 372. CT at [facility] and again here on arrival w gallstones, w/o acute cholecystitis and no bile duct abnormalities were noted. When asked, he denies abd pain but has had ongoing nausea for a few weeks. He has not had vomiting but states, "I wish I could vomit." He has been constipated and CT suggested a bit of fecal stasis/impaction but he has abd discomfort only when the abdomen is palpated, specifically in the RLQ. He is S/P appendectomy. Though resting on his side in bed, and seeming very fatigued, he is awake, alert, oriented when awakened and gives a fairly detailed hx. He is hard of hearing. Allergies Allergy/AdvReac Type Severity Reaction Status Date / Time No Known Allergies Allergy Unverified 05/26/21 14:42 Home Medications Medication Instructions Recorded Confirmed Type atorvastatin 20 mg tablet 20 mg PO DAILY 05/26/21 05/26/21 History empagliflozin 10 mg tablet 10 mg PO DAILY 05/26/21 05/26/21 History (Jardiance) lisinopril 5 mg tablet 5 mg PO QAM 05/26/21 05/26/21 History metformin 500 mg tablet,extended 1,000 mg PO BID 05/26/21 05/26/21 History release 24 hr torsemide 20 mg tablet 40 mg PO BID 05/26/21 05/26/21 History apixaban 5 mg tablet (Eliquis) 5 mg PO BID 01/31/22 01/31/22 History cephalexin 500 mg capsule 500 mg PO TID 01/31/22 01/31/22 History Patient History Medical History DM type 2 (diabetes mellitus, type 2) HLD (hyperlipidemia) HTN (hypertension) Surgical History History of bowel resection Social History Smoking Status: Never smoker Second Hand Exposure: No; Do You Dip or Chew Tobacco: Yes; Hx Alcohol Use: Yes Alcohol type: beer Hx Substance Use: Yes Last Used Substance: Unknown Preferred Language: [place] Communication Ability: Effective Developer Programmer Analyst Required: No Beliefs That Will Affect Care: None marital status: Current Living Situation: Family Current Living Situation Comment: Lives in story below son Feels Safe at Home: Yes Safety Concerns: Feels Safe At This Time Assistive Devices: Cane, Raised Toilet Seat, Walker and Wheelchair Review of Systems Review of Systems: ROS: Gen: + reports chills when asked, + weakness, no fevers, no weight loss Eyes: No eye redness, or pain, no recent vision changes Resp: No SOB, no cough Cardio: + lower leg edema; No palpitations/irregular beats, no chest pain GI: No abdominal pain, no nausea/vomiting : Denies pain on urination Skin: No jaundice, itching or new rashes Physical Exam Constitutional: well developed, + ill appearing, cooperative and + overweight; not in distress mildly uncomfortable w/o specific painful areas Eyes: PERRL, conjunctivae normal, anicteric sclerae Neck: trachea midline, no thyromegaly Respiratory: normal respiratory effort, lungs clear to auscultation Cardiovascular: Rate/Rhythm: regular rate and regular rhythm 1 + non pit ting lower leg edema bilat Gastrointestinal (Abdomen): Inspection/Auscultation: abdomen normal to inspection and + hypoactive bowel sounds; abdomen not distended mildly tender in the right mid and right lower areas Skin: no rashes, warm and dry Neurologic: PERRL, EOMI, accommodation nl, no face palsy, no dysarthria Psychiatric: Orientation: alert and oriented x 3 Lymphatic: no cervical or axillary lymphadenopathy Results & Data ([facility]) Vital Signs (Past 12 Hours) Vital Signs Temp Pulse Pulse Resp BP Pulse Ox O2 Del Method 02/01/22 08:24 36.3 C L 20 119/75 99 Room Air 02/01/22 07:19 85 01/31/22 22:21 61 01/31/22 22:30 36.5 C 62 18 125/70 97 Room Air Laboratory Results WBC 6.2, Hb 10.9, Hct 33.2, Plts 188, PT 131, INR 1.2, Na 125, K 4.8, Cl 87, CO2 30, BUN 65, Cr 1.45, glucose 88 Diagnostic Findings CTAP w IV contrast 01/30/22: 1. Cholelithiasis with no definite CT evidence for acute cholecystitis. 2. Moderate fecal stasis and impaction without evidence for obstruction. 3. Small bowel ileus versus gastroenteritis. 4. Mild diverticulosis without evidence for diverticulitis. 5. Small right pleural effusion and right basilar atelectasis. This also right middle lobe atelectasis. 6. Additional nonacute findings are delineated above
--- NOTE | 2022-02-01 12:45 | Surgery Progress Note ---
Date of Service February 01, 2022 Assessment & Plan (1) Elevated LFTs: Plan: Currently no abdominal pain. No evidence of acute cholecystitis. He does have gallstones with slight bump in his LFTs. Awaiting GI consult. No urgent indication for laparoscopic cholecystectomy. We will continue to follow along current admission. Dr. Kearns covering for the weekend. (2) Cholelithiasis: Admission and Anticipated Discharge Date Admission Date: January 31, 2022 Subjective Patient seen. No abdominal pain or nausea currently. Physical Exam Constitutional: WD/WN, vitals as above no acute distress and not ill appearing Eyes: PERRL, conjunctivae normal, anicteric sclerae EOM intact bilaterally ENMT: external ear and nose normal, oropharynx normal Ears: no hearing impairment Neck: trachea midline, no thyromegaly Respiratory: normal respiratory effort; no respiratory distress and does not use accessory muscles Cardiovascular: Rate/Rhythm: regular rate and regular rhythm Gastrointestinal (Abdomen): normal bowel sounds, soft, nontender, no hepatosplenomegaly Skin: no rashes, warm and dry Psychiatric: Orientation: alert, oriented x 3 and cooperative Results & Data ([facility]) Vital Signs (Past 12 Hours) Vital Signs Temp Pulse Pulse Resp BP BP Pulse Ox 02/01/22 11:12 36.7 C 76 18 102/73 94 02/01/22 08:24 36.3 C L 20 119/75 99 02/01/22 07:19 85 O2 Del Method 02/01/22 11:12 Room Air 02/01/22 08:24 Room Air 02/01/22 07:19 PG Care Time/CCT Total # of Minutes Spent Total Time Spent with Patient: Total time spent is greater than 50% in coordination of care (as documented) at patient's floor/unit and/or counseling patient: Coding Level of Care Code 03748 Subseq Hosp Care Lvl 2 Diagnoses Elevated LFTs R79.89 Cholelithiasis K80.20
--- NOTE | 2022-02-01 14:52 | Magnetic Resonance Report ---
MR MRCP CLINICAL HISTORY: sepsis, gallstones, elev LFTs, evaluate for bile duct abnormality. Intermittent giselle sea and vomiting for 2 weeks TECHNIQUE: Multiplanar multisequence MR images were obtained of the abdomen, followed by reconstruct ion of MRCP imaging. However, the study is incomplete as the patient could not tolerate the full stud y and continued to move during the examination. COMPARISON: None available at the time of this dictation. FINDINGS: Lung bases: There is evidence for small to moderate size right pleural effusion. Liver: There is homogeneous signal intensity seen within the liver. No mass lesions are seen. There i s no evidence for intrahepatic or duct dilatation. Gallbladder: The gallbladder is well distended with no intraluminal calculi. There is no evidence for wall thickening or pericholecystic edema. Spleen: There is homogeneous signal throughout the splenic parenchyma. No mass lesions are seen. Pancreas: The pancreas is homogeneous in signal There is no evidence for a mass lesion. Kidneys: There is homogeneous signal throughout the renal parenchyma bilaterally. Adrenal glands: There is homogeneous signal demonstrated with no gross mass seen. Abdominal cavity: There is no gross bowel dilatation. There is mild abdominal ascites with fluid seen surrounding the spleen and over the dome of the liver.. The aorta is normal in caliber. The visualized osseous structures, demonstrate no evidence of abnormal signal intensity. MRCP: Nondiagnostic. The common bile duct could not be visualized by this study. IMPRESSION: 1. Limited examination with no intrahepatic biliary duct dilatation is identified. 2. The MRCP portion of the study was nondiagnostic and the common bile duct could not be evaluated. ACT 112: Negative or not required by law. Electronically signed by: Benito Kim M.D. 02/01/2022 2:50 PM
--- NOTE | 2022-02-01 15:27 | Hospitalist Progress Note ---
Date of Service February 01, 2022 Assessment & Plan (1) Elevated LFTs: (2) Cholelithiasis: (3) Hypotension: (4) Hyperglycemia: (5) Cellulitis: Plan Hypotension -Possibly early sepsis versus over diuresis -resolved with IV fluids and antibiotics -d/c further IVF, continue to hold diuretics and lisinopril -TSH, cortisol normal. TTE results noted (see below) -antibiotics broadened to Vancomycin/zosyn yesterday--> will d/c Vancomycin, continue zosyn for now Chronic systolic CHF -TTE with EF 25% -currently appears euvolemic. Will hold torsemide and lisinopril for now. Can resume tomorrow if he remains hemodynamically stable -will ask for Cardiology evaluation for pre-op and medical optimization Abnormal LFTs Cholelithiasis -MRCP was non diagnostic. Appreciate GI input, likely ERCP on Friday -clears for now. Hold Eliquis. -continue zosyn Type 2 NIDDM with hyperglycemia -Better glycemic control currently -Management per glycemic pharmacist Bilateral Lower extremity cellulitis -already on Zosyn DVT ppx -Start SQ heparin Admission and Anticipated Discharge Date Admission Date: January 31, 2022 Subjective Went down for MRCP today, patient reports during that he had multiple episodes of vomiting Denies abdominal pain Asking whether he can eat Review of Systems Review of Systems: As above Physical Exam Physical Exam: Hard of hearing, no acute distress, non toxic Respiratory: Breathing comfortably on room air, no wheezing/rhonchi/rales Cardiovascular: regular rate and rhythm, no murmurs/rubs/gallops Gastrointestinal (Abdomen): soft, non tender Musculoskeletal: No edema, no cyanosis or clubbing Neurologic: awake, alert, spontaneously moving extremities, hard of hearing Results & Data Results & Data ([facility]) Vital Signs (Past 12 Hours) Vital Signs Temp Pulse Pulse Resp BP BP Pulse Ox 02/01/22 11:12 36.7 C 76 18 102/73 94 02/01/22 08:24 36.3 C L 20 119/75 99 02/01/22 07:19 85 O2 Del Method 02/01/22 11:12 Room Air 02/01/22 08:24 Room Air 02/01/22 07:19 Laboratory Results Short CBC 01/31/22 02/01/22 Range/Units 17:29 10:23 WBC 6.26 4.97 (4.8-10.8) K/ul Hgb 10.9 L 10.3 L (14.0-18.0) g/dl Hct 33.2 L 31.3 L (40.1-51.0) % Plt Count 188 177 (130-400) K/uL BMP 01/31/22 02/01/22 17:29 10:23 Sodium 125 L 125 L Potassium 4.8 4.2 Chloride 87 L 89 L Carbon Dioxide 30 28 BUN 61 H 49 H Creatinine 1.45 H 1.29 Glucose 109 H 94 Calcium 8.8 8.7 Liver Function 01/31/22 02/01/22 Range/Units 17:29 10:23 Total Bilirubin 1.1 H 1.7 H D (0.2-1.0) mg/dl AST 52 H 63 H (13-39) U/L ALT 23 33 (7-52) U/L Alkaline Phosphatase 372 H 350 H (34-104) U/L Albumin 3.9 3.5 (3.4-5.0) gm/dl Medications Administered Current Inpatient Medications Acetaminophen (Acetaminophen 325 Mg Tab) 650 mg PO Q4H PRN PRN Reason: Pain or Fever Stop: 03/02/22 02:57 Apixaban (Apixaban 2.5 Mg Tab) 2.5 mg PO BID [facility] Stop: 03/02/22 08:59 Last Admin: 02/01/22 08:24 Dose: 2.5 mg Atorvastatin Calcium (Atorvastatin 20 Mg Tab) 20 mg PO DAILY NATHAN Stop: 03/02/22 08:59 Last Admin: 02/01/22 08:24 Dose: 20 mg Piperacillin Sod/Tazobactam (Sod 3.375 gm/ Dextrose) 115 mls @ 28.75 mls/hr IV Q8H [facility]; Protocol Stop: 02/02/22 16:59 Last Admin: 02/01/22 14:59 Dose: 28.8 mls/hr Vancomycin HCl 1,250 mg/ (Sodium Chloride) 275 mls @ 200 mls/hr IV Q24H [facility] Stop: 02/02/22 17:59 Last Infusion: 02/01/22 13:04 Dose: Infused Insulin Aspart (Insulin Aspart Per Unit) 0 units SC ACHS [facility] Stop: 03/02/22 07:29 Last Admin: 02/01/22 12:32 Dose: Not Given Insulin Glargine (Lantus Per Unit Charge) 7 units SQ DAILY NATHAN Stop: 03/02/22 08:59 Last Admin: 02/01/22 08:26 Dose: 7 units Miscellaneous Information (Vancomycin Consult Active) 1 each N/A UD PRN PRN Reason: Consult Stop: 03/02/22 16:52 Nitroglycerin (Nitroglycerin Sl 0.4 Mg/Tab Tab) 0.4 mg SL Q5M PRN PRN Reason: Chest Pain Stop: 03/02/22 02:57 Polyethylene Glycol (Polyethylene (Miralax) 17 Gm Pack) 17 gm PO BID NATHAN Stop: 02/03/22 08:59 Last Admin: 02/01/22 08:25 Dose: 17 gm Saccharomyces Boulardii (Saccharomyces Boulardii 250 Mg Cap) 250 mg PO DAILY [facility] Stop: 03/03/22 08:59 Last Admin: 02/01/22 08:25 Dose: 250 mg (1) Hypotension Hypotension type: unspecified hypotension type Qualified Code(s): I95.9 - Hypotension, unspecified (2) Cellulitis Laterality: unspecified laterality Site of cellulitis: extremity Site of cellulitis of extremity: lower extremity Qualified Code(s): L03.119 - Cellulitis of unspecified part of limb
--- NOTE | 2022-02-01 16:49 | Cardiology Consultation ---
Date of Consultation February 01, 2022 Assessment & Plan (1) Elevated LFTs: (2) Cholelithiasis: (3) Acute hyponatremia: (4) Chronic systolic (congestive) heart failure: Plan Patient with recent admission for acute CHF in [place]. Treated with aggressive diuresis. Torsemide 40 mg BID initiated on discharge in place of furosemide. Patient presented here with confusion, dehydration, hypotension, hyponatremia. Possibly underlying acute mich as well with nausea and abdominal pain. 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 Per review of prior records, this appears to be consistent with his history, conservative therapies recommended. however his LVEF has trended downward, now 25%. SPEP ordered to evaluate for amyloid Hold diuretics as he appears clinically dry. Hospitalist/gen surgery planning for possible ERCP on Friday. Holding Eliquis in anticipation of procedure. Case discussed with Dr. Arshad. Supervising Physician Co-Signing Physician Notes 81-year-old patient admitted with hypotension and acute kidney injury. Recently hospitalized due to acute heart failure. Prescribed diuretic therapy. Poor historian. Appears volume depleted. Notes chronic edema in lower extremities that are tender to touch. Denies chest pain or palpitations. Bedside 2D transthoracic echocardiogram demonstrates decline of LV systolic function and imaging concerning for infiltrative cardiomyopathy. PE: VSS. Gen: NAD, AAO x3. Heart: Regular with ectopy. No murmur. Lungs: Diminished breath sounds at the bases bilateral. No rales, rhonchi, wheeze. Extremities: 1+ bilateral pretibial edema. + Tenderness to palpation. A/P: Agree with above PA-C history, physical exam, assessment and plan. Hold diuretic therapy. Serum protein electrophoresis ordered. Consider outpatient PYP nuclear scan and abdominal fat pad biopsy for further evaluation of possible infiltrative cardiomyopathy. Anticoagulation currently on hold in anticipation of possible ERCP. History of Present Illness Reason for Consultation: Abnormal echo; preop; dehydration Requesting Physician: Dr. Villalpando Attending Physician: Dr. Arshad History of Present Illness Patient is a 81 year old male who presents to [facility] for confusion weakness, nausea, vomting. He typically follows with [facility]. History includes: 1. Chronic systolic heart failure, ejection fraction 45-49%, NYHA class III 2. DM II 3. HLD 4. Chronic dependent lower extremity edema 5. Hypertension, goal below 140/80 6. Significant LVH with RVH, 7. Lower extremity cellulitis 8. Medication Noncompliance 9. Nonobstructive CAD per CT scan 08/10/2021 10. Paroxysmal atrial fibrillation [id number] (age, CHF, hypertension, vascular disease, diabetes) Patient was recently admitted to [facility] for b/l LE edema, SOB, cellulitis. Evaluated by Dr. Lomeli, LVEF 45%. Symptoms improved with IV diuresis. On discharge, torsemide 40 mg BID was initiated in place of furosemide. Patient is unsure of these med changes were made on discharge 3 days ago. Son helps with meds. Over the last few days patient developed worsening abdominal pain, nausea, vomiting, and confusion. Brought to ER by son. On arrival, patient was found to be hypotensive. received IV fluids. Diuretics placed on hold. At time of consult, patient is a poor historian, mildly confused. He denies chest pain, dyspnea. Edema improved per patient. BP improving with IV fluids. Nausea resolving. On admission there was concern for acute mich. LFT's climbing. he is tentati vely scheduled for ERCP on Friday Allergies Allergy/AdvReac Type Severity Reaction Status Date / Time No Known Allergies Allergy Unverified 05/26/21 14:42 Home Medications Medication Instructions Recorded Confirmed Type atorvastatin 20 mg tablet 20 mg PO DAILY 05/26/21 05/26/21 History empagliflozin 10 mg tablet 10 mg PO DAILY 05/26/21 05/26/21 History (Jardiance) lisinopril 5 mg tablet 5 mg PO QAM 05/26/21 05/26/21 History metformin 500 mg tablet,extended 1,000 mg PO BID 05/26/21 05/26/21 History release 24 hr torsemide 20 mg tablet 40 mg PO BID 05/26/21 05/26/21 History apixaban 5 mg tablet (Eliquis) 5 mg PO BID 01/31/22 01/31/22 History cephalexin 500 mg capsule 500 mg PO TID 01/31/22 01/31/22 History Patient History Medical History DM type 2 (diabetes mellitus, type 2) HLD (hyperlipidemia) HTN (hypertension) Surgical History History of bowel resection Social History Smoking Status: Never smoker Second Hand Exposure: No; Do You Dip or Chew Tobacco: Yes; Hx Alcohol Use: Yes Alcohol type: beer Hx Substance Use: Yes Last Used Substance: Unknown Preferred Language: Wolof Communication Ability: Effective Bolter Helper Required: No Beliefs That Will Affect Care: None marital status: Current Living Situation: Family Current Living Situation Comment: Lives in story below son Feels Safe at Home: Yes Safety Concerns: Feels Safe At This Time Assistive Devices: Cane, Raised Toilet Seat, Walker and Wheelchair Review of Systems Review of Systems: All systems reviewed & are unremarkable except as noted in HPI & below Physical Exam Constitutional: WD/WN, vitals as above no acute distress Respiratory: normal respiratory effort, lungs clear to auscultation Cardiovascular: Rate/Rhythm: regular rate and regular rhythm Heart Sounds: + murmur (II/ systolic murmur) Vessels: no JVD Extremities: + edema (trace pretibial edema ) Gastrointestinal (Abdomen): normal bowel sounds, soft, nontender, no hepatosplenomegaly Musculoskeletal: no cyanosis or clubbing, extremities motor strength 5/5 Neurologic: PERRL, EOMI, accommodation nl, no face palsy, no dysarthria Psychiatric: A+Ox3, euthymic affect Results & Data ([facility]) Vital Signs (Past 12 Hours) Vital Signs Temp Pulse Pulse Resp BP BP Pulse Ox 02/01/22 15:46 36.0 C L 69 20 112/62 93 02/01/22 15:23 72 02/01/22 11:12 36.7 C 76 18 102/73 94 02/01/22 08:24 36.3 C L 20 119/75 99 02/01/22 07:19 85 O2 Del Method 02/01/22 15:46 Room Air 02/01/22 15:23 02/01/22 11:12 Room Air 02/01/22 08:24 Room Air 02/01/22 07:19 Laboratory Results Laboratory Results WBC 4.97 K/ul (4.8-10.8) 02/01/22 10:23 RBC 3.51 M/uL (4.63-6.08) L 02/01/22 10: Hgb 10.3 g/dl (14.0-18.0) L 02/01/22 10: Hct 31.3 % (40.1-51.0) L 02/01/22 10: MCV 89.2 fL (80.0-100.0) 02/01/22 10: MCH 29.3 pg (25.0-34.0) 02/01/22 10: MCHC 32.9 g/dL (32.0-36.0) 02/01/22 10: RDW Std Deviation 54.1 fL (36.4-46.3) H 02/01/22: RDW Coeff of Carolyn 16.6 % (11.5-14.5) H 02/01/22 10: Plt Count 177 K/uL (130-400) 02/01/22 10: MPV 10.4 fL (9.4-12.4) 02/01/22 10: Immature Gran % (Auto) 0.4 % 02/01/22 10:23 Neut % (Auto) 61.0 % 02/01/22 10:23 Lymph % (Auto) 14.9 % 02/01/22 10:23 Randolph % (Auto) 19.3 % 02/01/22 10: Eos % (Auto) 4.2 % 02/01/22 10: Baso % (Auto) 0.2 % 02/01/22: Neut # (Auto) 3.03 K/uL (1.4-6.5) 02/01/22 10: Lymph # (Auto) 0.74 K/uL (1.2-3.4) L 02/01/22 10: Randolph # (Auto) 0.96 K/uL (0.24-0.82) H 02/01/22 10: Eos # (Auto) 0.21 K/uL (0-0.50) 02/01/22 10: Baso # (Auto) 0.01 K/uL (0-0.2) 02/01/22 10: Immature Gran # (Auto) 0.02 K/uL (0.00-0.02) 02/01/22 10:23 PT 13.1 Seconds (9.0-12.0) H 01/30/22 20:10 INR 1.2 (0.9-1.1) H 01/30/22 20:10 APTT 32.4 Seconds (21.0-31.0) H 01/30/22 20:10 PTT Ratio 1.2 01/30/22 20:10 VBG pH 7.38 (7.36-7.41) 01/30/22 22:47 VBG pCO2 55 mmHg (38-50) H 01/30/22 22:47 VBG pO2 46 mmHg 01/30/22 22:47 VBG HCO3 33 mmol/L 01/30/22 22:47 VBG O2 Saturation 73.4 % 01/30/22 22:47 VBG Base Excess 5.8 mEq/L 01/30/22 22:47 Sodium 125 mmol/L (136-145) L 02/01/22 10:23 Potassium 4.2 mmol/L (3.5-5.1) 02/01/22 10:23 Chloride 89 mmol/L (98-107) L 02/01/22 10:23 Carbon Dioxide 28 mmol/L (21-32) 02/01/22 10:23 Anion Gap 8 (3-11) 02/01/22 10:23 BUN 49 mg/dl (6-23) H 02/01/22 10:23 Creatinine 1.29 mg/dl (0.6-1.4) 02/01/22 10:23 Est Cr Clr Drug Dosing 51.4 ml/min 02/01/22 10:23 Est GFR ( Amer) 59.9 ml/min 02/01/22 10:23 Est GFR (Non-Af Amer) 51.7 ml/min 02/01/22 10:23 BUN/Creatinine Ratio 38.0 (10-20) H 02/01/22 10:23 Glucose 94 mg/dl (70-99(Fasting)) 02/01/22 10:23 POC Glucose 56 mg/dl (70-99) L* 02/01/22 16:32 Estimat Average Glucose 192 mg/dl 01/31/22 05:15 Hemoglobin A1c 8.3 % (4.5-5.6) H 01/31/22 05:15 Lactate 0.9 mmol/L (0.4-2.0) 01/31/22 17:29 Calcium 8.7 mg/dl (8.5-10.1) 02/01/22 10:23 Magnesium 1.8 mg/dl (1.7-2.4) 01/31/22 05:15 Total Bilirubin 1.7 mg/dl (0.2-1.0) H D 02/01/22 10:23 AST 63 U/L (13-39) H 02/01/22 10:23 ALT 33 U/L (7-52) 02/01/22 10:23 Alkaline Phosphatase 350 U/L (34-104) H 02/01/22 10:23 Total Protein 7.2 gm/dl (6.0-8.3) 02/01/22 10:23 Albumin 3.5 gm/dl (3.4-5.0) 02/01/22 10:23 Globulin 3.7 gm/dl (2.5-4.0) 02/01/22 10:23 Albumin/Globulin Ratio 0.9 (0.9-2) 02/01/22 10:23 Procalcitonin 0.12 ng/ml (0-0.5) 01/31/22 17:29 TSH 4.907 uIu/ml (0.300-4.500) H 01/31/22 17:29 Free T4 1.11 ng/dl (0.61-1.60) 01/31/22 17:29 Random Cortisol 10.01 mcg/dl 01/31/22 17:29 Urine Color Yellow 01/31/22 03:54 Urine Appearance Clear (Clear) 01/31/22 03:54 Urine pH 5.0 (4.5-7.5) 01/31/22 03:54 Ur Specific [place] 1.020 (1.000-1.030) 01/31/22 03:54 Urine Protein Negative (Negative) 01/31/22 03:54 Urine Glucose (UA) Negative (Negative) 01/31/22 03:54 Urine Ketones Negative (Negative) 01/31/22 03:54 Urine Blood Negative (Negative) 01/31/22 03:54 Urine Nitrite Negative (Negative) 01/31/22 03:54 Urine Bilirubin Negative (Negative) 01/31/22 03:54 Urine Urobilinogen Negative (Negative) 01/31/22 03:54 Ur Leukocyte Esterase Negative (Negative) 01/31/22 03:54 SARS-CoV-2, RNA, NAAT NEGATIVE (NEGATIVE) 01/30/22 21:51 Impressions Chest X-Ray 01/30/22 20:06 XR chest 1V portable HISTORY: Hypotension. Sepsis COMPARISON: Chest 12/01/2014. FINDINGS: There are low lung volumes. Mild elevation the right hemidiaphragm. Bibasilar linear densities favor subsegmental atelectasis. Otherwise, no focal lung consolidations to suggest pneumonia. There is mild central pulmonary vascular congestion without overt edema.. The cardiac silhouette is mildly enlarged. No pleural effusions. No pneumothorax. IMPRESSION: 1. Low lung volumes with bibasilar linear densities. This favors subsegmental atelectasis. 2. Cardiomegaly with mild central pulmonary vascular congestion. ACT 112: Negative or not required by law. Electronically signed by: Paop [place] M.D. 01/30/2022 8:54 PM Abdomen/Pelvis CT 01/30/22 21:38 CT abd pelvis IV con only CLINICAL HISTORY: r sided pain, vomiting COMPARISON STUDY: No previous studies for comparison. CT DOSE: 465.45 mGy.cm TECHNIQUE: Standard CT of the Abdomen and Pelvis was performed with IV contrast. A dose lowering technique was utilized adhering to the principles of ALARA. Contrast Volume: Optiray 320, 94 ml. The patient did not receive oral contrast. FINDINGS: Lung base: There is evidence for atelectasis within the lateral segment of the right middle lobe. This also a small right pleural effusion and compressive atelectasis at the right lung base. Left lung base is clear. The heart is enlarged. There is a nodular density present within the right chest wall measuring 3.4 x 2.2 cm of uncertain etiology. Ultrasound would be the study of choice for further evaluation. Abdominal cavity: There is no evidence for abdominal mass, adenopathy or ascites. Liver: There is homogeneous attenuation of the liver parenchyma. There is no evidence for enhancing mass lesion. Spleen: There is homogeneous attenuation of the splenic parenchyma. There is no enhancing mass lesion. Pancreas: There is homogeneous attenuation of the pancreatic parenchyma. There is no evidence for mass lesion or peripancreatic fluid collection. Gall Bladder: There is evidence for cholelithiasis with no definite CT evidence for acute cholecystitis. Adrenal glands: The adrenal glands are normal in size and attenuation. There is no evidence for enhancing mass lesion. Kidneys: There is homogeneous attenuation of the renal parenchyma bilaterally. There is no evidence for renal calculus or hydronephrosis. There is no evidence for enhancing mass. Bowel: The stomach is distended with liquid and food stuff. There are fluid- filled loops of small bowel seen throughout the abdomen and pelvis without evidence for disproportionate dilatation or obstruction. The findings are characteristic of an ileus versus gastroenteritis. There is moderate fecal stasis and mild fecal impaction. There is no evidence for obstruction. Is sigmoid diverticulosis without evidence for diverticulitis. There are no inflammatory changes present. There is no evidence for free air. Bladder: The bladder is within normal limits with no evidence for focal mass, calculus or diverticulum. There is diffuse thickening of the wall bladder characteristic of chronic bladder outlet obstruction. : There is no evidence for pelvic mass or adenopathy. There is no evidence for pelvic ascites. The prostate is mildly enlarged. Vasculature: There is no evidence for aneurysmal dilatation of the abdominal aorta. Atherosclerotic calcification is present. Osseous structures: There is no acute osseous pathology. Degenerative changes are seen within the spine with evidence for previous internal fixation. Patient is also status post right hip replacement with imaging artifact. IMPRESSION: 1. Cholelithiasis with no definite CT evidence for acute cholecystitis. 2. Moderate fecal stasis and impaction without evidence for obstruction. 3. Small bowel ileus versus gastroenteritis. 4. Mild diverticulosis without evidence for diverticulitis. 5. Small right pleural effusion and right basilar atelectasis. This also right middle lobe atelectasis. 6. Additional nonacute findings are delineated above ACT 112: Negative or not required by law. Electronically signed by: Benito Kim M.D. 01/31/2022 7:21 AM Cholangiopancreatography MRI 02/01/22 10:29 MR MRCP CLINICAL HISTORY: sepsis, gallstones, elev LFTs, evaluate for bile duct abnormality. Intermittent nausea and vomiting for 2 weeks TECHNIQUE: Multiplanar multisequence MR images were obtained of the abdomen, followed by reconstruction of MRCP imaging. However, the study is incomplete as the patient could not tolerate the full study and continued to move during the examination. COMPARISON: None available at the time of this dictation. FINDINGS: Lung bases: There is evidence for small to moderate size right pleural effusion. Liver: There is homogeneous signal intensity seen within the liver. No mass lesions are seen. There is no evidence for intrahepatic or duct dilatation. Gallbladder: The gallbladder is well distended with no intraluminal calculi. There is no evidence for wall thickening or pericholecystic edema. Spleen: There is homogeneous signal throughout the splenic parenchyma. No mass lesions are seen. Pancreas: The pancreas is homogeneous in signal There is no evidence for a mass lesion. Kidneys: There is homogeneous signal throughout the renal parenchyma bilaterally. Adrenal glands: There is homogeneous signal demonstrated with no gross mass seen. Abdominal cavity: There is no gross bowel dilatation. There is mild abdominal ascites with fluid seen surrounding the spleen and over the dome of the liver.. The aorta is normal in caliber. The visualized osseous structures, demonstrate no evidence of abnormal signal intensity. MRCP: Nondiagnostic. The common bile duct could not be visualized by this study. IMPRESSION: 1. Limited examination with no intrahepatic biliary duct dilatation is identified. 2. The MRCP portion of the study was nondiagnostic and the common bile duct could not be evaluated. ACT 112: Negative or not required by law. Electronically signed by: Benito Kim M.D. 02/01/2022 2:50 PM Diagnostic Findings Telemetry reviewed: NSR without concerning arrhythmias. EKG on admission: Sinus rhythm with 1st degree A-V block Left axis deviation Non-specific intra-ventricular conduction block Inferior infarct , age undetermined Abnormal ECG When compared with ECG of 29-SEP-2017 15:08, Questionable change in QRS duration Inferior infarct is now Present echo results reviewed: LV systolic function is severely reduced LVEF 25-30% Moderate concentric LVH Mild MR Echo images concerning for infiltrative cardiomyopathy Medications Administered Current Inpatient Medications Acetaminophen (Acetaminophen 325 Mg Tab) 650 mg PO Q4H PRN PRN Reason: Pain or Fever Stop: 03/02/22 02:57 Apixaban (Apixaban 2.5 Mg Tab) 2.5 mg PO BID NATHAN Stop: 03/02/22 08:59 Last Admin: 02/01/22 08:24 Dose: 2.5 mg Atorvastatin Calcium (Atorvastatin 20 Mg Tab) 20 mg PO DAILY NATHAN Stop: 03/02/22 08:59 Last Admin: 02/01/22 08:24 Dose: 20 mg Piperacillin Sod/Tazobactam (Sod 3.375 gm/ Dextrose) 115 mls @ 28.75 mls/hr IV Q8H [facility]; Protocol Stop: 02/02/22 16:59 Last Admin: 02/01/22 14:59 Dose: 28.8 mls/hr Insulin Aspart (Insulin Aspart Per Unit) 0 units SC ACHS [facility] Stop: 03/02/22 07:29 Last Admin: 02/01/22 16:35 Dose: Not Given Insulin Glargine (Lantus Per Unit Charge) 7 units SQ DAILY [facility] Stop: 03/02/22 08:59 Last Admin: 02/01/22 08:26 Dose: 7 units Nitroglycerin (Nitroglycerin Sl 0.4 Mg/Tab Tab) 0.4 mg SL Q5M PRN PRN Reason: Chest Pain Stop: 03/02/22 02:57 Polyethylene Glycol (Polyethylene (Miralax) 17 Gm Pack) 17 gm PO BID [facility] Stop: 02/03/22 08:59 Last Admin: 02/01/22 08:25 Dose: 17 gm Saccharomyces Boulardii (Saccharomyces Boulardii 250 Mg Cap) 250 mg PO DAILY [facility] Stop: 03/03/22 08:59 Last Admin: 02/01/22 08:25 Dose: 250 mg
[2022-02-01] MEDS ORDERED: PHARMACY GLYCEMIC MGMT CONSULT PRN (18:23)
[2022-02-02] MEDS: PIPERACILLIN/TAZOBACTAM 3.375 GM in DEXTROSE 5% 100 ML IV SCH ×3 (05:46→21:01)
[2022-02-02 06:04] LABS: Basophils # (auto) 0.02 K/uL (0-0.2); Basophils % (auto) 0.4 %; Eosinophils # (auto) 0.19 K/uL (0-0.50); Eosinophils % (auto) 4.2 %; Hematocrit (blood only) 32.3 % (40.1-51.0); Hemoglobin 10.8 g/dl (14.0-18.0); Immature Granulocytes # (auto) 0.01 K/uL (0.00-0.02); Immature Granulocytes % (auto) 0.2 %; Lymphocytes # (auto) 1.06 K/uL (1.2-3.4); Lymphocytes % (auto) 23.4 %; Mean Corpuscular Hemoglobin 28.8 pg (25.0-34.0); Mean Corpuscular Hgb Conc 33.4 g/dL (32.0-36.0); Mean Corpuscular Volume 86.1 fL (80.0-100.0); Mean Platelet Volume 10.5 fL (9.4-12.4); Monocytes # (auto) 1.04 K/uL (0.24-0.82); Neutrophils # (auto) 2.21 K/uL (1.4-6.5); Neutrophils % (auto) 48.8 %; Platelet Count 167 K/uL (130-400); RDW Coefficient of Variation 16.7 % (11.5-14.5); RDW Standard Deviation 51.9 fL (36.4-46.3); Red Blood Count 3.75 M/uL (4.63-6.08); White Blood Count 4.53 K/ul (4.8-10.8)
[2022-02-02 07:00] LABS: Albumin Globulin Ratio 0.9 (0.9-2); Albumin Level 3.5 gm/dl (3.4-5.0); BUN Creatinine Ratio 41.9 (10-20); Bilirubin,Total 1.7 mg/dl (0.2-1.0); Calcium 8.8 mg/dl (8.5-10.1); Creatinine Clr Calc Pharmacy 71.3 ml/min; Est GFR (African American) 88.9 ml/min; Est GFR (Non-African American) 76.7 ml/min; Globulin 3.7 gm/dl (2.5-4.0); Potassium 4.1 mmol/L (3.5-5.1); Total Protein 7.2 gm/dl (6.0-8.3)
[2022-02-02] MEDS ORDERED: GLUCOSE 10 TAB/TUBE PO PRN (07:45)
[2022-02-02] MEDS ORDERED: GLUCAGON FOR INJ 1 MG VIAL IM PRN (07:45)
[2022-02-02] MEDS ORDERED: DEXTROSE 50% 50 ML SYRINGE IV PRN (07:45)
[2022-02-02] MEDS ORDERED: GLUCOSE 40% GEL 15 GM TUBE PO PRN (07:45)
[2022-02-02] MEDS ORDERED: CARBOHYDRATES FOR HYPOGLYCEMIA PO PRN (07:45)
[2022-02-02] MEDS: POLYETHYLENE (MIRALAX) 17 GM PACK PO SCH ×2 (09:04→20:37)
[2022-02-02] MEDS: INSULIN ASPART PER UNIT SC SCH ×4 (09:05→20:37)
[2022-02-02] MEDS: SACCHAROMYCES BOULARDII 250 MG CAP PO SCH (09:05)
--- NOTE | 2022-02-02 10:37 | Pharmacy Report ---
Pharmacy Glycemic Short Note 2 - Date of Service February 02, 2022 - Glycemic Short BSG Results (Last 24 hours): 02/01/22 02/01/22 02/01/22 10:23 11:38 16:31 Glucose 94 POC Glucose 90 57 L* 02/01/22 02/01/22 02/01/22 16:32 18:11 20:07 Glucose POC Glucose 56 L* 90 55 L* 02/01/22 02/01/22 02/02/22 20:10 21:41 05:33 Glucose 56 L POC Glucose 77 105 H 02/02/22 02/02/22 02/02/22 07:31 07:33 08:01 Glucose POC Glucose 66 L* 68 L* 107 H OUTPATIENT ANTIDIABETIC REGIMEN: * Jardiance 10 mg PO daily * Metformin 1000 mg BID * HbA1C = 8.3% 01/31/22 ASSESSMENT: * Patient's BSGs yesterday were 88-90-57 (pharmacy consulted)- 55 mg/dL. * Fasting today is 56 mg/dL. * Patient received 7 units of insulin yesterday (all BASAL insulin). * When consulted at dinnertime yesterday, pharmacist d/c'ed Lantus (given in AM). * With low today, continue to hold Lantus. * Novolog is currently at loose scale and will continue. PLAN FOR INPATIENT GLYCEMIC CONTROL: * Hold outpatient oral diabetes medications * Basal insulin * hold * Bolus insulin * NovoLog per scale ACHS or Q6hrs while NPO * Goal Range: Low 140 mg/dL - High 180 mg/dL * Correction Factor: 30 mg/dL/unit * Nutritional / Prandial insulin per carb ratio of 1 unit per 10 grams CHO consumed
[2022-02-02] MEDS: ONDANSETRON INJ 2 MG/ML 2 ML VIAL IV PRN (11:07)
--- NOTE | 2022-02-02 11:24 | Electrocardiogram Report ---
Test Reason : Blood Pressure : / mmHG Vent. Rate : 061 BPM Atrial Rate : 500 BPM P-R Int : 000 ms QRS Dur : 148 ms QT Int : 454 ms P-R-T Axes : 000 -80 081 degrees QTc Int : 457 ms Probable Normal sinus rhythm Left axis deviation Non-specific intra-ventricular conduction block Inferior infarct , age undetermined Abnormal ECG When compared with ECG of 30-JAN-2022 20:10, No significant change Confirmed by Kvng Evans ([id number]) on 02/02/2022 11:24:10 AM Referred By: REFERRED SELF Confirmed By:Kvng Evans
--- NOTE | 2022-02-02 11:52 | Cardiology Progress Note ---
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 Treated with aggressive diuresis. Torsemide 40 mg BID initiated on discharge in place of furosemide. Patient presented here with confusion, dehydration, hypotension, hyponatremia. Possibly underlying acute mich as well with nausea and abdominal pain. 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 Per review of prior records, this appears to be consistent with his history, conservative therapies recommended. however his LVEF has trended downward, now 25%. SPEP ordered to evaluate for amyloid Clinically appears compensated from congestive heart failure standpoint at this time Continue to hold diuretic Patient in atrial fibrillation with past history of paroxysmal atrial fibrillation. Review of telemetry suspicious for present on admission Hospitalist/gen surgery planning for possible ERCP on Friday. Holding Eliquis in anticipation of procedure. Will consider adding low-dose beta-ashleigh as course progresses blood pressure is now slowly improved Admission and Anticipated Discharge Date Admission Date: January 31, 2022 Subjective Patient was seen and examined, chart, medications, telemetry reviewed Telemetry reveals better analysis of rhythm. Patient in course A. fib flutter with controlled ventricular sponsor rate He denies any acute complaints. No abdominal pain on clear liquid diet. No fevers or chills Physical Exam Constitutional: WD/WN, vitals as above no acute distress Respiratory: normal respiratory effort, lungs clear to auscultation Cardiovascular: Rate/Rhythm: + irregularly irregular Heart Sounds: + murmur (II/ systolic murmur) Vessels: no JVD Extremities: + edema (trace pretibial edema ) Gastrointestinal (Abdomen): normal bowel sounds, soft, nontender, no hepatosplenomegaly Musculoskeletal: no cyanosis or clubbing, extremities motor strength 5/5 Neurologic: PERRL, EOMI, accommodation nl, no face palsy, no dysarthria Psychiatric: A+Ox3, euthymic affect Results & Data ([place]) Vital Signs (Past 12 Hours) Vital Signs Temp Pulse Pulse Resp BP BP Pulse Ox 02/02/22 08:22 36.5 C 97 H 20 120/74 97 02/02/22 07:30 67 02/02/22 03:40 36.5 C 78 18 125/79 94 O2 Del Method 02/02/22 08:22 Room Air 02/02/22 07:30 02/02/22 03:40 Room Air Laboratory Results Laboratory Results - last 24 hr 02/01/22 02/01/22 02/01/22 10:23 16:31 16:32 WBC RBC Hgb Hct MCV MCH MCHC RDW Std Deviation RDW Coeff of Carolyn Plt Count MPV Immature Gran % (Auto) Neut % (Auto) Lymph % (Auto) [place] % (Auto) Eos % (Auto) Baso % (Auto) Neut # (Auto) Lymph # (Auto) [place] # (Auto) Eos # (Auto) Baso # (Auto) Immature Gran # (Auto) Sodium 125 L Potassium 4.2 Chloride 89 L Carbon Dioxide Anion Gap 8 BUN Creatinine Est Cr Clr Drug Dosing Est GFR ( Amer) Est GFR (Non-Af Amer) BUN/Creatinine Ratio Glucose POC Glucose 57 L* 56 L* Calcium Total Bilirubin AST ALT Alkaline Phosphatase Total Protein Total Protein (PEP) Albumin Albumin (PEP) Globulin Albumin/Globulin Ratio Cycer-1-Yfjronquc Pdxhy-9-Clnjbwlir Jpni-7-Gnrgcvjf Bfpv-1-Hplaxthb Gamma Globulins Monoclonal Peak 3 Ser Monoclonl Protein Ser Monoclonal Prot 2 PEP Interpretation 02/01/22 02/01/22 02/01/22 18:11 20:07 20:10 WBC RBC Hgb Hct MCV MCH MCHC RDW Std Deviation RDW Coeff of Carolyn Plt Count MPV Immature Gran % (Auto) Neut % (Auto) Lymph % (Auto) [place] % (Auto) Eos % (Auto) Baso % (Auto) Neut # (Auto) Lymph # (Auto) [place] # (Auto) Eos # (Auto) Baso # (Auto) Immature Gran # (Auto) Sodium Potassium Chloride Carbon Dioxide Anion Gap BUN Creatinine Est Cr Clr Drug Dosing Est GFR ( Amer) Est GFR (Non-Af Amer) BUN/Creatinine Ratio Glucose POC Glucose 90 55 L* 77 Calcium Total Bilirubin AST ALT Alkaline Phosphatase Total Protein Total Protein (PEP) Albumin Albumin (PEP) Globulin Albumin/Globulin Ratio Vsyxt-7-Gzmwyrjly Toriy-6-Imoyijzju Wtir-3-Jvluwzum Wuoh-4-Uuaumcza Gamma Globulins Monoclonal Peak 3 Ser Monoclonl Protein Ser Monoclonal Prot 2 PEP Interpretation 07/15/22 07/16/22 07/16/22 21:41 05:33 05:33 WBC 4.53 L RBC 3.75 L Hgb 10.8 L Hct 32.3 L MCV 86.1 MCH 28.8 MCHC 33.4 RDW Std Deviation 51.9 H RDW Coeff of Carolyn 16.7 H Plt Count 167 MPV 10.5 Immature Gran % (Auto) 0.2 Neut % (Auto) 48.8 Lymph % (Auto) 23.4 [place] % (Auto) 23.0 Eos % (Auto) 4.2 Baso % (Auto) 0.4 Neut # (Auto) 2.21 Lymph # (Auto) 1.06 L [place] # (Auto) 1.04 H Eos # (Auto) 0.19 Baso # (Auto) 0.02 Immature Gran # (Auto) 0.01 Sodium 125 L Potassium 4.1 Chloride 91 L Carbon Dioxide 25 Anion Gap 9 BUN 39 H Creatinine 0.93 D Est Cr Clr Drug Dosing 71.3 Est GFR ( Amer) 88.9 Est GFR (Non-Af Amer) 76.7 BUN/Creatinine Ratio 41.9 H Glucose 56 L POC Glucose 105 H Calcium 8.8 Total Bilirubin 1.7 H AST 57 H ALT 30 Alkaline Phosphatase 363 H Total Protein 7.2 Total Protein (PEP) Albumin 3.5 Albumin (PEP) Globulin 3.7 Albumin/Globulin Ratio 0.9 Ebmpo-3-Iqfoiylks Uowrc-7-Brmolslta Avcp-0-Dvowtitv Fhhp-2-Dmczqskj Gamma Globulins Monoclonal Peak 3 Ser Monoclonl Protein Ser Monoclonal Prot 2 PEP Interpretation 02/02/22 02/02/22 02/02/22 05:33 07:31 07:33 WBC RBC Hgb Hct MCV MCH MCHC RDW Std Deviation RDW Coeff of Carolyn Plt Count MPV Immature Gran % (Auto) Neut % (Auto) Lymph % (Auto) [place] % (Auto) Eos % (Auto) Baso % (Auto) Neut # (Auto) Lymph # (Auto) [place] # (Auto) Eos # (Auto) Baso # (Auto) Immature Gran # (Auto) Sodium Potassium Chloride Carbon Dioxide Anion Gap BUN Creatinine Est Cr Clr Drug Dosing Est GFR ( Amer) Est GFR (Non-Af Amer) BUN/Creatinine Ratio Glucose POC Glucose 66 L* 68 L* Calcium Total Bilirubin AST ALT Alkaline Phosphatase Total Protein Total Protein (PEP) Pending Albumin Albumin (PEP) Pending Globulin Albumin/Globulin Ratio Unnln-8-Axgxzbaak Pending Itcow-4-Vkhihnfmu Pending Yakw-2-Oyyduwse Pending Drjf-0-Beiurtbq Pending Gamma Globulins Pending Monoclonal Peak 3 Pending Ser Monoclonl Protein Pending Ser Monoclonal Prot 2 Pending PEP Interpretation Pending 02/02/22 02/02/22 08:01 11:42 WBC RBC Hgb Hct MCV MCH MCHC RDW Std Deviation RDW Coeff of Carolyn Plt Count MPV Immature Gran % (Auto) Neut % (Auto) Lymph % (Auto) [place] % (Auto) Eos % (Auto) Baso % (Auto) Neut # (Auto) Lymph # (Auto) [place] # (Auto) Eos # (Auto) Baso # (Auto) Immature Gran # (Auto) Sodium Potassium Chloride Carbon Dioxide Anion Gap BUN Creatinine Est Cr Clr Drug Dosing Est GFR ( Amer) Est GFR (Non-Af Amer) BUN/Creatinine Ratio Glucose POC Glucose 107 H 112 H Calcium Total Bilirubin AST ALT Alkaline Phosphatase Total Protein Total Protein (PEP) Albumin Albumin (PEP) Globulin Albumin/Globulin Ratio Rozsq-5-Klosxpnru Hkhgv-7-Ioxovppyd Avgs-9-Wevqdcmy Lpdn-5-Cmavdvml Gamma Globulins Monoclonal Peak 3 Ser Monoclonl Protein Ser Monoclonal Prot 2 PEP Interpretation
--- NOTE | 2022-02-02 12:55 | Electrocardiogram Report ---
Test Reason : Blood Pressure : / mmHG Vent. Rate : 067 BPM Atrial Rate : 063 BPM P-R Int : 000 ms QRS Dur : 150 ms QT Int : 460 ms P-R-T Axes : 000 191 000 degrees QTc Int : 486 ms Probable Sinus rhythm with 1st degree A-V block Right superior axis deviation Non-specific intra-ventricular conduction block Abnormal ECG When compared with ECG of 02-FEB-2022 05:17, Criteria for Inferior infarct are no longer Present Confirmed by Kvng Evans ([id number]) on 02/02/2022 12:55:10 PM Referred By: REFERRED SELF Confirmed By:Kvng Evans
--- NOTE | 2022-02-02 13:42 | Surgery Progress Note ---
Date of Service February 02, 2022 Assessment & Plan (1) Cholelithiasis: Plan: pt is a 81 year-old with gallstone, pt denies abdominal pain, Plan, pt will have ERCP on Friday, will F/U, miralax for constipation, Admission and Anticipated Discharge Date Admission Date: January 31, 2022 Supervising Physician Co-Signing Physician Notes 81-year-old patient admitted with hypotension and acute kidney injury. Recently hospitalized due to acute heart failure. Prescribed diuretic therapy. Poor historian. Appears volume depleted. Notes chronic edema in lower extremities that are tender to touch. Denies chest pain or palpitations. Bedside 2D transthoracic echocardiogram demonstrates decline of LV systolic function and imaging concerning for infiltrative cardiomyopathy. PE: VSS. Gen: NAD, AAO x3. Heart: Regular with ectopy. No murmur. Lungs: Diminished breath sounds at the bases bilateral. No rales, rhonchi, wheeze. Extremities: 1+ bilateral pretibial edema. + Tenderness to palpation. A/P: Agree with above PA-C history, physical exam, assessment and plan. Hold diuretic therapy. Serum protein electrophoresis ordered. Consider outpatient PYP nuclear scan and abdominal fat pad biopsy for further evaluation of possible infiltrative cardiomyopathy. Anticoagulation currently on hold in anticipation of possible ERCP. Subjective Patient was seen and examined, chart, medications, telemetry reviewed Telemetry reveals better analysis of rhythm. Patient in course A. fib flutter with controlled ventricular sponsor rate He denies any acute complaints. No abdominal pain on clear liquid diet. No fevers or chills 02/02/2022 1:39PM, Dr. Kearns, F/U gallstone, pt denies abdominal pain, but constipation, no BM for 2 days, no fever, Physical Exam Constitutional: WD/WN, vitals as above Eyes: PERRL, conjunctivae normal, anicteric sclerae Neck: trachea midline, no thyromegaly Respiratory: normal respiratory effort, lungs clear to auscultation Cardiovascular: RRR, no murmur, no edema Gastrointestinal (Abdomen): soft, NT ND, middle line scar, BS + Neurologic: patellar DTR's 2+ bilat, sensation intact Psychiatric: A+Ox3, euthymic affect Results & Data ([facility]) Vital Signs (Past 12 Hours) Vital Signs Temp Pulse Pulse Resp BP BP Pulse Ox 02/02/22 12:46 36.5 C 65 20 117/68 94 02/02/22 08:22 36.5 C 97 H 20 120/74 97 02/02/22 07:30 67 02/02/22 03:40 36.5 C 78 18 125/79 94 O2 Del Method 02/02/22 12:46 Room Air 02/02/22 08:22 Room Air 02/02/22 07:30 02/02/22 03:40 Room Air Laboratory Results Abnormal lab results 02/01/22 02/01/22 02/01/22 Range/Units 16:31 16:32 20:07 WBC (4.8-10.8) K/ul RBC (4.63-6.08) M/uL Hgb (14.0-18.0) g/dl Hct (40.1-51.0) % RDW Std Deviation (36.4-46.3) fL RDW Coeff of Carolyn (11.5-14.5) % Lymph # (Auto) (1.2-3.4) K/uL [place] # (Auto) (0.24-0.82) K/uL Sodium (136-145) mmol/L Chloride (98-107) mmol/L BUN (6-23) mg/dl BUN/Creatinine Ratio (10-20) Glucose (70-99(Fasting)) mg/dl POC Glucose 57 L* 56 L* 55 L* (70-99) mg/dl Total Bilirubin (0.2-1.0) mg/dl AST (13-39) U/L Alkaline Phosphatase (34-104) U/L 02/01/22 02/02/22 02/02/22 Range/Units 21:41 05:33 05:33 WBC 4.53 L (4.8-10.8) K/ul RBC 3.75 L (4.63-6.08) M/uL Hgb 10.8 L (14.0-18.0) g/dl Hct 32.3 L (40.1-51.0) % RDW Std Deviation 51.9 H (36.4-46.3) fL RDW Coeff of Carolyn 16.7 H (11.5-14.5) % Lymph # (Auto) 1.06 L (1.2-3.4) K/uL [place] # (Auto) 1.04 H (0.24-0.82) K/uL Sodium 125 L (136-145) mmol/L Chloride 91 L (98-107) mmol/L BUN 39 H (6-23) mg/dl BUN/Creatinine Ratio 41.9 H (10-20) Glucose 56 L (70-99(Fasting)) mg/dl POC Glucose 105 H (70-99) mg/dl Total Bilirubin 1.7 H (0.2-1.0) mg/dl AST 57 H (13-39) U/L Alkaline Phosphatase 363 H (34-104) U/L 02/02/22 02/02/22 02/02/22 Range/Units 07:31 07:33 08:01 WBC (4.8-10.8) K/ul RBC (4.63-6.08) M/uL Hgb (14.0-18.0) g/dl Hct (40.1-51.0) % RDW Std Deviation (36.4-46.3) fL RDW Coeff of Carolyn (11.5-14.5) % Lymph # (Auto) (1.2-3.4) K/uL [place] # (Auto) (0.24-0.82) K/uL Sodium (136-145) mmol/L Chloride (98-107) mmol/L BUN (6-23) mg/dl BUN/Creatinine Ratio (10-20) Glucose (70-99(Fasting)) mg/dl POC Glucose 66 L* 68 L* 107 H (70-99) mg/dl Total Bilirubin (0.2-1.0) mg/dl AST (13-39) U/L Alkaline Phosphatase (34-104) U/L 02/02/22 Range/Units 11:42 WBC (4.8-10.8) K/ul RBC (4.63-6.08) M/uL Hgb (14.0-18.0) g/dl Hct (40.1-51.0) % RDW Std Deviation (36.4-46.3) fL RDW Coeff of Carolyn (11.5-14.5) % Lymph # (Auto) (1.2-3.4) K/uL [place] # (Auto) (0.24-0.82) K/uL Sodium (136-145) mmol/L Chloride (98-107) mmol/L BUN (6-23) mg/dl BUN/Creatinine Ratio (10-20) Glucose (70-99(Fasting)) mg/dl POC Glucose 112 H (70-99) mg/dl Total Bilirubin (0.2-1.0) mg/dl AST (13-39) U/L Alkaline Phosphatase (34-104) U/L Diagnostic Findings MR MRCP CLINICAL HISTORY: sepsis, gallstones, elev LFTs, evaluate for bile duct abnormality. Intermittent nausea and vomiting for 2 weeks TECHNIQUE: Multiplanar multisequence MR images were obtained of the abdomen, followed by reconstruction of MRCP imaging. However, the study is incomplete as the patient could not tolerate the full study and continued to move during the examination. COMPARISON: None available at the time of this dictation. FINDINGS: Lung bases: There is evidence for small to moderate size right pleural effusion. Liver: There is homogeneous signal intensity seen within the liver. No mass lesions are seen. There is no evidence for intrahepatic or duct dilatation. Gallbladder: The gallbladder is well distended with no intraluminal calculi. There is no evidence for wall thickening or pericholecystic edema. Spleen: There is homogeneous signal throughout the splenic parenchyma. No mass lesions are seen. Pancreas: The pancreas is homogeneous in signal There is no evidence for a mass lesion. Kidneys: There is homogeneous signal throughout the renal parenchyma bilaterally. Adrenal glands: There is homogeneous signal demonstrated with no gross mass seen. Abdominal cavity: There is no gross bowel dilatation. There is mild abdominal ascites with fluid seen surrounding the spleen and over the dome of the liver.. The aorta is normal in caliber. The visualized osseous structures, demonstrate no evidence of abnormal signal intensity. MRCP: Nondiagnostic. The common bile duct could not be visualized by this study. IMPRESSION: 1. Limited examination with no intrahepatic biliary duct dilatation is identified. 2. The MRCP portion of the study was nondiagnostic and the common bile duct could not be evaluated. ACT 112: Negative or not required by law. CT abd pelvis IV con only CLINICAL HISTORY: r sided pain, vomiting COMPARISON STUDY: No previous studies for comparison. CT DOSE: 465.45 mGy.cm TECHNIQUE: Standard CT of the Abdomen and Pelvis was performed with IV contrast. A dose lowering technique was utilized adhering to the principles of ALARA. Contrast Volume: Optiray 320, 94 ml. The patient did not receive oral contrast. FINDINGS: Lung base: There is evidence for atelectasis within the lateral segment of the right middle lobe. This also a small right pleural effusion and compressive atelectasis at the right lung base. Left lung base is clear. The heart is enlarged. There is a nodular density present within the right chest wall measuring 3.4 x 2.2 cm of uncertain etiology. Ultrasound would be the study of choice for further evaluation. Abdominal cavity: There is no evidence for abdominal mass, adenopathy or ascites. Liver: There is homogeneous attenuation of the liver parenchyma. There is no evidence for enhancing mass lesion. Spleen: There is homogeneous attenuation of the splenic parenchyma. There is no enhancing mass lesion. Pancreas: There is homogeneous attenuation of the pancreatic parenchyma. There is no evidence for mass lesion or peripancreatic fluid collection. Gall Bladder: There is evidence for cholelithiasis with no definite CT evidence for acute cholecystitis. Adrenal glands: The adrenal glands are normal in size and attenuation. There is no evidence for enhancing mass lesion. Kidneys: There is homogeneous attenuation of the renal parenchyma bilaterally. There is no evidence for renal calculus or hydronephrosis. There is no evidence for enhancing mass. Bowel: The stomach is distended with liquid and food stuff. There are fluid- filled loops of small bowel seen throughout the abdomen and pelvis without evidence for disproportionate dilatation or obstruction. The findings are characteristic of an ileus versus gastroenteritis. There is moderate fecal stasis and mild fecal impaction. There is no evidence for obstruction. Is sigmoid diverticulosis without evidence for diverticulitis. There are no inflammatory changes present. There is no evidence for free air. Bladder: The bladder is within normal limits with no evidence for focal mass, calculus or diverticulum. There is diffuse thickening of the wall bladder characteristic of chronic bladder outlet obstruction. : There is no evidence for pelvic mass or adenopathy. There is no evidence for pelvic ascites. The prostate is mildly enlarged. Vasculature: There is no evidence for aneurysmal dilatation of the abdominal aorta. Atherosclerotic calcification is present. Osseous structures: There is no acute osseous pathology. Degenerative changes are seen within the spine with evidence for previous internal fixation. Patient is also status post right hip replacement with imaging artifact. IMPRESSION: 1. Cholelithiasis with no definite CT evidence for acute cholecystitis. 2. Moderate fecal stasis and impaction without evidence for obstruction. 3. Small bowel ileus versus gastroenteritis. 4. Mild diverticulosis without evidence for diverticulitis. 5. Small right pleural effusion and right basilar atelectasis. This also right middle lobe atelectasis. 6. Additional nonacute findings are delineated above
--- NOTE | 2022-02-02 16:08 | Hospitalist Progress Note ---
Date of Service February 02, 2022 Assessment & Plan (1) Elevated LFTs: (2) Cholelithiasis: (3) Hypotension: (4) Hyperglycemia: (5) Cellulitis: Plan Hypotension -Possibly early sepsis versus over diuresis -resolved with IV fluids and antibiotics -d/c further IVF, continue to hold diuretics and lisinopril -TSH, cortisol normal. TTE results noted (see below) -antibiotics broadened to Vancomycin/zosyn 01/31--> vancomycin discontinued 02/01, continue zosyn Chronic systolic CHF -TTE with EF 25% -currently appears euvolemic. Will hold torsemide and lisinopril for now. -Cardiology consulted, appreciate input Abnormal LFTs Cholelithiasis -MRCP was non diagnostic. Appreciate GI input, likely ERCP on Friday -clears for now. Hold Eliquis. -continue zosyn Type 2 NIDDM with hyperglycemia -Better glycemic control currently -Management per glycemic pharmacist Bilateral Lower extremity cellulitis -already on Zosyn DVT ppx - SQ heparin Admission and Anticipated Discharge Date Admission Date: January 31, 2022 Subjective Patient feels nauseous but no vomiting today. "I tried but couldn't" Physical Exam Physical Exam: Poor historian, appears uncomfortable but no acute distress Respiratory: breathing comfortably on room air, no wheezing/rhonchi/rales Cardiovascular: regular rate and rhythm, no murmurs/rubs/gallops Gastrointestinal (Abdomen): soft, epigastric tenderness to palpation Musculoskeletal: no edema, no cyanosis or clubbing Skin: some bruising on arms/legs Neurologic: awake, poor historian, spontaneously moving extremities Results & Data Results & Data ([facility]) Vital Signs (Past 12 Hours) Vital Signs Temp Pulse Pulse Resp BP BP Pulse Ox 02/02/22 12:46 36.5 C 65 20 117/68 94 02/02/22 08:22 36.5 C 97 H 20 120/74 97 02/02/22 07:30 67 O2 Del Method 02/02/22 12:46 Room Air 02/02/22 08:22 Room Air 02/02/22 07:30 Laboratory Results Short CBC 02/02/22 Range/Units 05:33 WBC 4.53 L (4.8-10.8) K/ul Hgb 10.8 L (14.0-18.0) g/dl Hct 32.3 L (40.1-51.0) % Plt Count 167 (130-400) K/uL BMP 02/02/22 05:33 Sodium 125 L Potassium 4.1 Chloride 91 L Carbon Dioxide 25 BUN 39 H Creatinine 0.93 D Glucose 56 L Calcium 8.8 Liver Function 02/02/22 Range/Units 05:33 Total Bilirubin 1.7 H (0.2-1.0) mg/dl AST 57 H (13-39) U/L ALT 30 (7-52) U/L Alkaline Phosphatase 363 H (34-104) U/L Albumin 3.5 (3.4-5.0) gm/dl Medications Administered Current Inpatient Medications Acetaminophen (Acetaminophen 325 Mg Tab) 650 mg PO Q4H PRN PRN Reason: Pain or Fever Stop: 03/02/22 02:57 Apixaban (Apixaban 2.5 Mg Tab) 2.5 mg PO BID NATHAN Stop: 03/02/22 08:59 Last Admin: 02/01/22 08:24 Dose: 2.5 mg Atorvastatin Calcium (Atorvastatin 20 Mg Tab) 20 mg PO DAILY NATHAN Stop: 03/02/22 08:59 Last Admin: 02/01/22 08:24 Dose: 20 mg Dextrose (Dextrose 50% 50 Ml Syringe) 25 - 50 ml IV UD PRN; Protocol PRN Reason: Hypoglycemia Protocol Stop: 03/04/22 07:44 Glucagon (Glucagon For Inj 1 Mg Vial) 1 mg IM UD PRN; Protocol PRN Reason: Hypoglycemia Protocol Stop: 03/04/22 07:44 Glucose (Glucose 40% Gel 15 Gm Tube) 15 - 30 gm PO UD PRN; Protocol PRN Reason: Hypoglycemia Protocol Stop: 03/04/22 07:44 Glucose (Glucose 10 Tab/Tube) 4 - 8 tab PO UD PRN; Protocol PRN Reason: Hypoglycemia Protocol Stop: 03/04/22 07:44 Piperacillin Sod/Tazobactam (Sod 3.375 gm/ Dextrose) 115 mls @ 28.75 mls/hr IV Q8H NATHAN; Protocol Stop: 02/05/22 21:59 Last Admin: 02/02/22 14:34 Dose: 28.8 mls/hr Insulin Aspart (Insulin Aspart Per Unit) 0 units SC ACHS NATHAN Stop: 03/02/22 07:29 Last Admin: 02/02/22 12:36 Dose: 2 units Miscellaneous (Carbohydrates For Hypoglycemia ) 15 - 30 gm PO UD PRN PRN Reason: Hypoglycemia Treatment Stop: 03/04/22 07:44 Last Admin: 02/02/22 07:40 Dose: 15 gm Miscellaneous Information (Pharmacy Glycemic Mgmt Consult) 1 each N/A UD PRN PRN Reason: Consult Stop: 03/03/22 18:22 Nitroglycerin (Nitroglycerin Sl 0.4 Mg/Tab Tab) 0.4 mg SL Q5M PRN PRN Reason: Chest Pain Stop: 03/02/22 02:57 Ondansetron HCl (Ondansetron Inj 2 Mg/Ml 2 Ml Vial) 4 mg IV Q6H PRN PRN Reason: Nausea And Vomiting Stop: 03/04/22 08:10 Last Admin: 02/02/22 11:07 Dose: 4 mg Polyethylene Glycol (Polyethylene (Miralax) 17 Gm Pack) 17 gm PO BID NATHAN Stop: 02/03/22 08:59 Last Admin: 02/02/22 09:04 Dose: 17 gm Polyethylene Glycol (Polyethylene (Miralax) 17 Gm Pack) 17 gm PO DAILY PRN PRN Reason: Constipation Stop: 03/04/22 13:36 Saccharomyces Boulardii (Saccharomyces Boulardii 250 Mg Cap) 250 mg PO DAILY [facility] Stop: 03/03/22 08:59 Last Admin: 02/02/22 09:05 Dose: 250 mg (1) Hypotension Hypotension type: unspecified hypotension type Qualified Code(s): I95.9 - Hypotension, unspecified (2) Cellulitis Laterality: unspecified laterality Site of cellulitis: extremity Site of cellulitis of extremity: lower extremity Qualified Code(s): L03.119 - Cellulitis of unspecified part of limb
[2022-02-02] MEDS: HEPARIN SOD 5,000 UNIT/0.5 ML VIAL SQ SCH (21:00)
[2022-02-03] MEDS: PIPERACILLIN/TAZOBACTAM 3.375 GM in DEXTROSE 5% 100 ML IV SCH ×3 (05:32→21:08)
[2022-02-03] MEDS: HEPARIN SOD 5,000 UNIT/0.5 ML VIAL SQ SCH ×3 (05:32→21:04)
[2022-02-03 07:02] LABS: Basophils # (auto) 0.02 K/uL (0-0.2); Basophils % (auto) 0.4 %; Eosinophils # (auto) 0.22 K/uL (0-0.50); Eosinophils % (auto) 4.9 %; Hematocrit (blood only) 31.5 % (40.1-51.0); Hemoglobin 10.4 g/dl (14.0-18.0); Immature Granulocytes # (auto) 0.03 K/uL (0.00-0.02); Immature Granulocytes % (auto) 0.7 %; Lymphocytes # (auto) 1.34 K/uL (1.2-3.4); Lymphocytes % (auto) 29.7 %; Mean Corpuscular Volume 87.7 fL (80.0-100.0); Mean Platelet Volume 10.4 fL (9.4-12.4); Monocytes # (auto) 1.15 K/uL (0.24-0.82); Monocytes % (auto) 25.5 %; Neutrophils # (auto) 1.75 K/uL (1.4-6.5); Neutrophils % (auto) 38.8 %; Platelet Count 164 K/uL (130-400); RDW Coefficient of Variation 16.8 % (11.5-14.5); RDW Standard Deviation 54.4 fL (36.4-46.3); Red Blood Count 3.59 M/uL (4.63-6.08); White Blood Count 4.51 K/ul (4.8-10.8)
[2022-02-03 07:12] LABS: Albumin Level 3.5 gm/dl (3.4-5.0); BUN Creatinine Ratio 29.8 (10-20); Bilirubin,Total 1.6 mg/dl (0.2-1.0); Calcium 8.8 mg/dl (8.5-10.1); Creatinine Clr Calc Pharmacy 64.2 ml/min; Est GFR (African American) 77.7 ml/min; Globulin 3.6 gm/dl (2.5-4.0); Magnesium 1.8 mg/dl (1.7-2.4); Potassium 4.1 mmol/L (3.5-5.1); Total Protein 7.1 gm/dl (6.0-8.3)
[2022-02-03] MEDS: SACCHAROMYCES BOULARDII 250 MG CAP PO SCH (08:32)
[2022-02-03] MEDS: INSULIN ASPART PER UNIT SC SCH ×4 (09:00→21:10)
--- NOTE | 2022-02-03 12:26 | Surgery Progress Note ---
Date of Service February 03, 2022 Assessment & Plan (1) Cholelithiasis: Plan: pt is a 81 year-old with gallstone, pt denies abdominal pain, Plan, pt will have ERCP on Friday, will F/U, miralax for constipation, 02/03/2022 12:27PM DR. Som Oliveros gallstone, stable, ERCP on 02/04/2022, will F/U Admission and Anticipated Discharge Date Admission Date: January 31, 2022 Supervising Physician Co-Signing Physician Notes 81-year-old patient admitted with hypotension and acute kidney injury. Recently hospitalized due to acute heart failure. Prescribed diuretic therapy. Poor historian. Appears volume depleted. Notes chronic edema in lower extremities that are tender to touch. Denies chest pain or palpitations. Bedside 2D transthoracic echocardiogram demonstrates decline of LV systolic function and imaging concerning for infiltrative cardiomyopathy. PE: VSS. Gen: NAD, AAO x3. Heart: Regular with ectopy. No murmur. Lungs: Diminished breath sounds at the bases bilateral. No rales, rhonchi, wheeze. Extremities: 1+ bilateral pretibial edema. + Tenderness to palpation. A/P: Agree with above PA-C history, physical exam, assessment and plan. Hold diuretic therapy. Serum protein electrophoresis ordered. Consider outpatient PYP nuclear scan and abdominal fat pad biopsy for further evaluation of possible infiltrative cardiomyopathy. Anticoagulation currently on hold in anticipation of possible ERCP. Subjective Patient feels nauseous but no vomiting today. "I tried but couldn't" 02/03/2022 12:24PM Dr. Som Oliveros gallstone, pt is stable, no abdominal pain, no vomiting, no fever, NO BM yet, Physical Exam Constitutional: WD/WN, vitals as above Eyes: PERRL, conjunctivae normal, anicteric sclerae Neck: trachea midline, no thyromegaly Respiratory: normal respiratory effort, lungs clear to auscultation Cardiovascular: RRR, no murmur, no edema Gastrointestinal (Abdomen): soft, NT, Nd, BS + Neurologic: patellar DTR's 2+ bilat, sensation intact Psychiatric: A+Ox3, euthymic affect Results & Data ([facility]) Vital Signs (Past 12 Hours) Vital Signs Temp Pulse Pulse Resp BP Pulse Ox O2 Del Method 02/03/22 11:26 36.8 C 66 18 98/68 L 96 Room Air 02/03/22 07:17 69 02/03/22 07:14 36.5 C 61 18 115/72 96 Room Air 02/03/22 02:52 36.5 C 83 18 118/80 94 Room Air Laboratory Results Abnormal lab results 02/02/22 02/03/22 02/03/22 Range/Units 19:54 06:12 06:12 WBC 4.51 L (4.8-10.8) K/ul RBC 3.59 L (4.63-6.08) M/uL Hgb 10.4 L (14.0-18.0) g/dl Hct 31.5 L (40.1-51.0) % RDW Std Deviation 54.4 H (36.4-46.3) fL RDW Coeff of Carolyn 16.8 H (11.5-14.5) % [place] # (Auto) 1.15 H (0.24-0.82) K/uL Immature Gran # (Auto) 0.03 H (0.00-0.02) K/uL Sodium 125 L (136-145) mmol/L Chloride 91 L (98-107) mmol/L BUN 31 H (6-23) mg/dl BUN/Creatinine Ratio 29.8 H (10-20) POC Glucose 103 H (70-99) mg/dl Total Bilirubin 1.6 H (0.2-1.0) mg/dl AST 49 H (13-39) U/L Alkaline Phosphatase 365 H (34-104) U/L 02/03/22 Range/Units 11:13 WBC (4.8-10.8) K/ul RBC (4.63-6.08) M/uL Hgb (14.0-18.0) g/dl Hct (40.1-51.0) % RDW Std Deviation (36.4-46.3) fL RDW Coeff of Carolyn (11.5-14.5) % [place] # (Auto) (0.24-0.82) K/uL Immature Gran # (Auto) (0.00-0.02) K/uL Sodium (136-145) mmol/L Chloride (98-107) mmol/L BUN (6-23) mg/dl BUN/Creatinine Ratio (10-20) POC Glucose 139 H (70-99) mg/dl Total Bilirubin (0.2-1.0) mg/dl AST (13-39) U/L Alkaline Phosphatase (34-104) U/L
--- NOTE | 2022-02-03 12:40 | Cardiology Progress Note ---
Date of Service February 03, 2022 Assessment & Plan (1) Elevated LFTs: (2) Cholelithiasis: (3) Acute hyponatremia: (4) Chronic systolic (congestive) heart failure: Plan: Findings suspicious for infiltrative cardiomyopathy with diffuse LV dysfunction (5) Atrial fibrillation: Plan: Controlled ventricular response rate Plan Patient with recent admission for acute CHF in [place]. Treated with aggressive diuresis. Torsemide 40 mg BID initiated on discharge in place of furosemide. Patient presented here with confusion, dehydration, hypotension, hyponatremia. Possibly underlying acute mich as well with nausea and abdominal pain. 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 Per review of prior records, this appears to be consistent with his history, conservative therapies recommended. however his LVEF has trended downward, now 25%. 02/04/2020 Clinically appears compensated from congestive heart failure standpoint at this time, remains in atrial fibrillation (present on admission) No changes yet at this time Hospitalist/gen surgery planning for possible ERCP on Friday. Holding Eliquis in anticipation of procedure. If any biopsies performed please send for amyloid screening Admission and Anticipated Discharge Date Admission Date: January 31, 2022 Subjective Patient was seen and examined, chart, medications, telemetry reviewed. No acute complaints or concerns no abdominal pain. Telemetry without tachycardia or bradycardia arrhythmias but remains in A. fib flutter with controlled ventricular response ERCP scheduled Physical Exam Constitutional: WD/WN, vitals as above no acute distress Respiratory: normal respiratory effort, lungs clear to auscultation Cardiovascular: Rate/Rhythm: regular rate, regular rhythm and + irregularly irregular Heart Sounds: + murmur (II/ systolic murmur) Vessels: no JVD Extremities: + edema (trace pretibial edema ) Gastrointestinal (Abdomen): normal bowel sounds, soft, nontender, no hepatosplenomegaly Musculoskeletal: no cyanosis or clubbing, extremities motor strength 5/5 Neurologic: PERRL, EOMI, accommodation nl, no face palsy, no dysarthria Psychiatric: A+Ox3, euthymic affect Results & Data ([facility]) Vital Signs (Past 12 Hours) Vital Signs Temp Pulse Pulse Resp BP Pulse Ox O2 Del Method 02/03/22 11:26 36.8 C 66 18 98/68 L 96 Room Air 02/03/22 07:17 69 02/03/22 07:14 36.5 C 61 18 115/72 96 Room Air 07/17/22 02:52 36.5 C 83 18 118/80 94 Room Air Laboratory Results Laboratory Results - last 24 hr 02/02/22 02/02/22 02/03/22 16:28 19:54 06:12 WBC RBC Hgb Hct MCV MCH MCHC RDW Std Deviation RDW Coeff of Carolyn Plt Count MPV Immature Gran % (Auto) Neut % (Auto) Lymph % (Auto) [place] % (Auto) Eos % (Auto) Baso % (Auto) Neut # (Auto) Lymph # (Auto) [place] # (Auto) Eos # (Auto) Baso # (Auto) Immature Gran # (Auto) Sodium 125 L Potassium 4.1 Chloride 91 L Carbon Dioxide 26 Anion Gap 8 BUN 31 H Creatinine 1.04 Est Cr Clr Drug Dosing 64.2 Est GFR ( Amer) 77.7 Est GFR (Non-Af Amer) 67.0 BUN/Creatinine Ratio 29.8 H Glucose 85 POC Glucose 79 103 H Calcium 8.8 Magnesium 1.8 Total Bilirubin 1.6 H AST 49 H ALT 28 Alkaline Phosphatase 365 H Total Protein 7.1 Albumin 3.5 Globulin 3.6 Albumin/Globulin Ratio 1.0 02/03/22 02/03/22 02/03/22 06:12 07:35 11:13 WBC 4.51 L RBC 3.59 L Hgb 10.4 L Hct 31.5 L MCV 87.7 MCH 29.0 MCHC 33.0 RDW Std Deviation 54.4 H RDW Coeff of Carolyn 16.8 H Plt Count 164 MPV 10.4 Immature Gran % (Auto) 0.7 Neut % (Auto) 38.8 Lymph % (Auto) 29.7 [place] % (Auto) 25.5 Eos % (Auto) 4.9 Baso % (Auto) 0.4 Neut # (Auto) 1.75 Lymph # (Auto) 1.34 [place] # (Auto) 1.15 H Eos # (Auto) 0.22 Baso # (Auto) 0.02 Immature Gran # (Auto) 0.03 H Sodium Potassium Chloride Carbon Dioxide Anion Gap BUN Creatinine Est Cr Clr Drug Dosing Est GFR ( Amer) Est GFR (Non-Af Amer) BUN/Creatinine Ratio Glucose POC Glucose 92 139 H Calcium Magnesium Total Bilirubin AST ALT Alkaline Phosphatase Total Protein Albumin Globulin Albumin/Globulin Ratio
--- NOTE | 2022-02-03 14:25 | Hospitalist Progress Note ---
Date of Service February 03, 2022 Assessment & Plan (1) Elevated LFTs: (2) Cholelithiasis: (3) Hypotension: (4) Hyperglycemia: (5) Cellulitis: Plan Hypotension -Possibly early sepsis versus over diuresis -resolved with IV fluids and antibiotics -d/c further IVF, continue to hold diuretics and lisinopril -TSH, cortisol normal. TTE results noted (see below) -antibiotics broadened to Vancomycin/zosyn 01/31--> vancomycin discontinued 02/01, continue zosyn Chronic systolic CHF -TTE with EF 25% -currently appears euvolemic. Will hold torsemide and lisinopril for now. -Cardiology consulted, appreciate input. Amyloidosis workup planned Abnormal LFTs Cholelithiasis -MRCP was non diagnostic. Appreciate GI input, likely ERCP on Friday - Hold Eliquis. Tolerated clears--> will allow full liquid diet today, then NPO pM -continue zosyn Type 2 NIDDM with hyperglycemia -Better glycemic control currently -Management per glycemic pharmacist Bilateral Lower extremity cellulitis -already on Zosyn DVT ppx - SQ heparin Admission and Anticipated Discharge Date Admission Date: January 31, 2022 Subjective No nausea today, no vomiting. Denies abdominal pain Remains afebrile Physical Exam Physical Exam: Laying in bed, sleeping comfortably, easily arousable Respiratory: breathing comfortably on room air, no wheezing/rhonchi/rales Cardiovascular: regular rate and rhythm, no murmurs/rubs/gallops Gastrointestinal (Abdomen): soft, non tender Musculoskeletal: no edema Neurologic: Appears to have cognitive impairment, poor memory, poor historian Results & Data Results & Data ([facility]) Vital Signs (Past 12 Hours) Vital Signs Temp Pulse Pulse Resp BP Pulse Ox O2 Del Method 02/03/22 11:26 36.8 C 66 18 98/68 L 96 Room Air 02/03/22 07:17 69 02/03/22 07:14 36.5 C 61 18 115/72 96 Room Air 02/03/22 02:52 36.5 C 83 18 118/80 94 Room Air Laboratory Results Short CBC 02/03/22 Range/Units 06:12 WBC 4.51 L (4.8-10.8) K/ul Hgb 10.4 L (14.0-18.0) g/dl Hct 31.5 L (40.1-51.0) % Plt Count 164 (130-400) K/uL BMP 02/03/22 06:12 Sodium 125 L Potassium 4.1 Chloride 91 L Carbon Dioxide 26 BUN 31 H Creatinine 1.04 Glucose 85 Calcium 8.8 Liver Function 02/03/22 Range/Units 06:12 Total Bilirubin 1.6 H (0.2-1.0) mg/dl AST 49 H (13-39) U/L ALT 28 (7-52) U/L Alkaline Phosphatase 365 H (34-104) U/L Albumin 3.5 (3.4-5.0) gm/dl Medications Administered Current Inpatient Medications Acetaminophen (Acetaminophen 325 Mg Tab) 650 mg PO Q4H PRN PRN Reason: Pain or Fever Stop: 03/02/22 02:57 Apixaban (Apixaban 2.5 Mg Tab) 2.5 mg PO BID NATHAN Stop: 03/02/22 08:59 Last Admin: 02/01/22 08:24 Dose: 2.5 mg Atorvastatin Calcium (Atorvastatin 20 Mg Tab) 20 mg PO DAILY NATHAN Stop: 03/02/22 08:59 Last Admin: 02/01/22 08:24 Dose: 20 mg Dextrose (Dextrose 50% 50 Ml Syringe) 25 - 50 ml IV UD PRN; Protocol PRN Reason: Hypoglycemia Protocol Stop: 03/04/22 07:44 Glucagon (Glucagon For Inj 1 Mg Vial) 1 mg IM UD PRN; Protocol PRN Reason: Hypoglycemia Protocol Stop: 03/04/22 07:44 Glucose (Glucose 40% Gel 15 Gm Tube) 15 - 30 gm PO UD PRN; Protocol PRN Reason: Hypoglycemia Protocol Stop: 03/04/22 07:44 Glucose (Glucose 10 Tab/Tube) 4 - 8 tab PO UD PRN; Protocol PRN Reason: Hypoglycemia Protocol Stop: 03/04/22 07:44 Heparin Sodium (Porcine) (Heparin Sod 5,000 Unit/0.5 Ml Vial) 5,000 units SQ Q8 NATHAN Stop: 03/04/22 21:59 Last Admin: 02/03/22 05:32 Dose: 5,000 units Piperacillin Sod/Tazobactam (Sod 3.375 gm/ Dextrose) 115 mls @ 28.75 mls/hr IV Q8H NATHAN; Protocol Stop: 02/05/22 21:59 Last Infusion: 02/03/22 09:32 Dose: Infused Insulin Aspart (Insulin Aspart Per Unit) 0 units SC ACHS NATHAN Stop: 03/02/22 07:29 Last Admin: 02/03/22 12:48 Dose: Not Given Miscellaneous (Carbohydrates For Hypoglycemia ) 15 - 30 gm PO UD PRN PRN Reason: Hypoglycemia Treatment Stop: 03/04/22 07:44 Last Admin: 02/02/22 07:40 Dose: 15 gm Miscellaneous Information (Pharmacy Glycemic Mgmt Consult) 1 each N/A UD PRN PRN Reason: Consult Stop: 03/03/22 18:22 Nitroglycerin (Nitroglycerin Sl 0.4 Mg/Tab Tab) 0.4 mg SL Q5M PRN PRN Reason: Chest Pain Stop: 03/02/22 02:57 Ondansetron HCl (Ondansetron Inj 2 Mg/Ml 2 Ml Vial) 4 mg IV Q6H PRN PRN Reason: Nausea And Vomiting Stop: 03/04/22 08:10 Last Admin: 02/02/22 11:07 Dose: 4 mg Polyethylene Glycol (Polyethylene (Miralax) 17 Gm Pack) 17 gm PO DAILY PRN PRN Reason: Constipation Stop: 03/04/22 13:36 Saccharomyces Boulardii (Saccharomyces Boulardii 250 Mg Cap) 250 mg PO DAILY [facility] Stop: 03/03/22 08:59 Last Admin: 02/03/22 08:32 Dose: 250 mg (1) Hypotension Hypotension type: unspecified hypotension type Qualified Code(s): I95.9 - Hypotension, unspecified (2) Cellulitis Laterality: unspecified laterality Site of cellulitis: extremity Site of cellulitis of extremity: lower extremity Qualified Code(s): L03.119 - Cellulitis of unspecified part of limb
--- NOTE | 2022-02-03 16:06 | Communication Note ---
Date of Service: February 03, 2022 Will plan for EGD with EUS and possible ERCP or LIver biopsy. This will most likely occur on Friday due to Endo unit/endoscopist availability.
[2022-02-04] MEDS ORDERED: MICONAZOLE NITRATE POWDER 43 GM EXT PRN (05:06)
[2022-02-04] MEDS: ONDANSETRON INJ 2 MG/ML 2 ML VIAL IV PRN (05:46)
[2022-02-04] MEDS: PIPERACILLIN/TAZOBACTAM 3.375 GM in DEXTROSE 5% 100 ML IV SCH ×3 (05:50→21:34)
[2022-02-04] MEDS: HEPARIN SOD 5,000 UNIT/0.5 ML VIAL SQ SCH ×3 (06:07→21:31)
[2022-02-04 06:10] LABS: Hematocrit (blood only) 31.1 % (40.1-51.0); Hemoglobin 10.5 g/dl (14.0-18.0); Mean Corpuscular Hemoglobin 29.4 pg (25.0-34.0); Mean Corpuscular Hgb Conc 33.8 g/dL (32.0-36.0); Mean Corpuscular Volume 87.1 fL (80.0-100.0); Platelet Count 162 K/uL (130-400); RDW Coefficient of Variation 16.8 % (11.5-14.5); RDW Standard Deviation 53.6 fL (36.4-46.3); Red Blood Count 3.57 M/uL (4.63-6.08); White Blood Count 4.06 K/ul (4.8-10.8)
[2022-02-04 06:23] LABS: INR 1.2 (0.9-1.1); Prothrombin Time 13.1 Seconds (9.0-12.0)
[2022-02-04 06:35] LABS: Albumin Globulin Ratio 0.9 (0.9-2); Albumin Level 3.4 gm/dl (3.4-5.0); BUN Creatinine Ratio 27.4 (10-20); Bilirubin,Total 1.4 mg/dl (0.2-1.0); Calcium 8.8 mg/dl (8.5-10.1); Creatinine Clr Calc Pharmacy 69.5 ml/min; Est GFR (African American) 86.7 ml/min; Est GFR (Non-African American) 74.8 ml/min; Globulin 3.8 gm/dl (2.5-4.0); Magnesium 1.8 mg/dl (1.7-2.4); Potassium 4.2 mmol/L (3.5-5.1); Total Protein 7.2 gm/dl (6.0-8.3)
[2022-02-04] MEDS: INSULIN ASPART PER UNIT SC SCH ×4 (07:59→21:05)
--- NOTE | 2022-02-04 09:03 | Surgery Progress Note ---
Date of Service February 04, 2022 Assessment & Plan (1) Cholelithiasis: Plan: No evidence of cholecystitis. Will await ERCP findings. Patient would be a moderate to high risk surgically. Will need to discuss with the team regarding necessity of cholecystectomy versus observation. We will make a decision regarding cholecystectomy after his ERCP. (2) Elevated LFTs: (3) Chronic systolic (congestive) heart failure: (4) Atrial fibrillation: (5) DM type 2 (diabetes mellitus, type 2): Admission and Anticipated Discharge Date Admission Date: January 31, 2022 Subjective Patient seen. Denies abdominal pain over the weekend. He did have some mild nausea this morning which is new. Physical Exam Constitutional: WD/WN, vitals as above no acute distress and not ill appearing Eyes: PERRL, conjunctivae normal, anicteric sclerae EOM intact bilaterally ENMT: external ear and nose normal, oropharynx normal Ears: no hearing impairment Neck: trachea midline, no thyromegaly Respiratory: normal respiratory effort; no respiratory distress and does not use accessory muscles Cardiovascular: Rate/Rhythm: regular rate and regular rhythm Gastrointestinal (Abdomen): normal bowel sounds, soft, nontender, no hepatosplenomegaly Skin: no rashes, warm and dry Psychiatric: Orientation: alert, oriented x 3 and cooperative Results & Data ([facility]) Vital Signs (Past 12 Hours) Vital Signs Temp Pulse Pulse Resp BP Pulse Ox O2 Del Method 02/04/22 07:32 37.1 C 58 L 16 95/62 L 93 Room Air 02/04/22 07:25 70 02/04/22 03:00 37.1 C 83 19 113/65 97 Room Air 02/03/22 23:15 36.8 C 65 18 105/69 95 Room Air PG Care Time/CCT Total # of Minutes Spent Total Time Spent with Patient: Total time spent is greater than 50% in coordination of care (as documented) at patient's floor/unit and/or counseling patient: Coding Level of Care Code 97142 Subseq Hosp Care Lvl 2 Diagnoses Cholelithiasis K80.20 Elevated LFTs R79.89 Chronic systolic (congestive) heart failure I50.22 Atrial fibrillation I48.91 DM type 2 (diabetes mellitus, type 2) E11.9
[2022-02-04] MEDS: SACCHAROMYCES BOULARDII 250 MG CAP PO SCH (09:27)
--- NOTE | 2022-02-04 10:16 | Gastroenterology Progress Note ---
Date of Service February 04, 2022 Assessment & Plan (1) Cholelithiasis: Plan: 81 year old male admitted w/ severe nausea, mild abdominal pain and decreased oral intake, mildly elevated LFTs - NPO after midnight for EGD/EUS/ERCP Friday - Hold Eliquis - Will cover cholangitis with broad spectrum antibiotics. - Follow LFTs - May have a liquid diet today. - Antiemetics as needed (2) Acute hyponatremia: (3) Elevated LFTs: Admission and Anticipated Discharge Date Admission Date: January 31, 2022 Supervising Physician Co-Signing Physician Notes I have seen and examined the patient with JOHNY Weems whose note reflects our findings and plan. Continue abx. NPO after midnight for EGD/EUS/bx tomorrow. Subjective Pt was seen and evaluated, chart reviewed. Feeling well. Notes he is hungry this AM denies pain or nausea to me. Denies any black or bloody stools. No fever, chills, CP, SOB. MRCP 2021: Limited examination with no intrahepatic biliary duct dilatation is identified.The MRCP portion of the study was nondiagnostic and the common bile d uct could not be evaluated. CTAP 2021: Cholelithiasis with no definite CT evidence for acute cholecystitis. Moderate fecal stasis and impaction without evidence for obstruction.Small bowel ileus versus gastroenteritis.Mild diverticulosis without evidence for diverticulitis. Small right pleural effusion and right basilar atelectasis. This also right middle lobe atelectasis. Additional nonacute findings are delineated above Review of Systems Review of Systems: All systems reviewed & are unremarkable except as noted in HPI & below Physical Exam Constitutional: WD/WN, vitals as above Neck: trachea midline, no thyromegaly Respiratory: normal respiratory effort, lungs clear to auscultation Cardiovascular: RRR, no murmur, no edema Gastrointestinal (Abdomen): normal bowel sounds, soft, nontender, no hepatosplenomegaly Skin: no rashes, warm and dry Results & Data ([facility]) Vital Signs (Past 12 Hours) Vital Signs Temp Pulse Pulse Resp BP Pulse Ox O2 Del Method 02/04/22 07:32 37.1 C 58 L 16 95/62 L 93 Room Air 02/04/22 07:25 70 02/04/22 03:00 37.1 C 83 19 113/65 97 Room Air 02/03/22 23:15 36.8 C 65 18 105/69 95 Room Air Laboratory Results 02/04/22 02/04/22 02/04/22 Range/Units 07:40 05:51 05:51 WBC 4.06 L (4.8-10.8) K/ul RBC 3.57 L (4.63-6.08) M/uL Hgb 10.5 L (14.0-18.0) g/dl Hct 31.1 L (40.1-51.0) % MCV 87.1 (80.0-100.0) fL MCH 29.4 (25.0-34.0) pg MCHC 33.8 (32.0-36.0) g/dL RDW Std Deviation 53.6 H (36.4-46.3) fL RDW Coeff of Carolyn 16.8 H (11.5-14.5) % Plt Count 162 (130-400) K/uL MPV 10.0 (9.4-12.4) fL PT 13.1 H (9.0-12.0) Seconds INR 1.2 H (0.9-1.1) Sodium (136-145) mmol/L Potassium (3.5-5.1) mmol/L Chloride (98-107) mmol/L Carbon Dioxide (21-32) mmol/L Anion Gap (3-11) BUN (6-23) mg/dl Creatinine (0.6-1.4) mg/dl Est Cr Clr Drug Dosing ml/min Est GFR ( Amer) ml/min Est GFR (Non-Af Amer) ml/min BUN/Creatinine Ratio (10-20) Glucose (70-99(Fasting)) mg/dl POC Glucose 97 (70-99) mg/dl Calcium (8.5-10.1) mg/dl Magnesium (1.7-2.4) mg/dl Total Bilirubin (0.2-1.0) mg/dl AST (13-39) U/L ALT (7-52) U/L Alkaline Phosphatase (34-104) U/L Total Protein (6.0-8.3) gm/dl Albumin (3.4-5.0) gm/dl Globulin (2.5-4.0) gm/dl Albumin/Globulin Ratio (0.9-2) 02/04/22 02/03/22 02/03/22 Range/Units 05:51 20:03 16:33 WBC (4.8-10.8) K/ul RBC (4.63-6.08) M/uL Hgb (14.0-18.0) g/dl Hct (40.1-51.0) % MCV (80.0-100.0) fL MCH (25.0-34.0) pg MCHC (32.0-36.0) g/dL RDW Std Deviation (36.4-46.3) fL RDW Coeff of Carolyn (11.5-14.5) % Plt Count (130-400) K/uL MPV (9.4-12.4) fL PT (9.0-12.0) Seconds INR (0.9-1.1) Sodium 125 L (136-145) mmol/L Potassium 4.2 (3.5-5.1) mmol/L Chloride 92 L (98-107) mmol/L Carbon Dioxide 26 (21-32) mmol/L Anion Gap 7 (3-11) BUN 26 H (6-23) mg/dl Creatinine 0.95 (0.6-1.4) mg/dl Est Cr Clr Drug Dosing 69.5 ml/min Est GFR ( Amer) 86.7 ml/min Est GFR (Non-Af Amer) 74.8 ml/min BUN/Creatinine Ratio 27.4 H (10-20) Glucose 90 (70-99(Fasting)) mg/dl POC Glucose 152 H 106 H (70-99) mg/dl Calcium 8.8 (8.5-10.1) mg/dl Magnesium 1.8 (1.7-2.4) mg/dl Total Bilirubin 1.4 H (0.2-1.0) mg/dl AST 50 H (13-39) U/L ALT 28 (7-52) U/L Alkaline Phosphatase 359 H (34-104) U/L Total Protein 7.2 (6.0-8.3) gm/dl Albumin 3.4 (3.4-5.0) gm/dl Globulin 3.8 (2.5-4.0) gm/dl Albumin/Globulin Ratio 0.9 (0.9-2) // Range/Units 11:13 WBC (4.8-10.8) K/ul RBC (4.63-6.08) M/uL Hgb (14.0-18.0) g/dl Hct (40.1-51.0) % MCV (80.0-100.0) fL MCH (25.0-34.0) pg MCHC (32.0-36.0) g/dL RDW Std Deviation (36.4-46.3) fL RDW Coeff of Carolyn (11.5-14.5) % Plt Count (130-400) K/uL MPV (9.4-12.4) fL PT (9.0-12.0) Seconds INR (0.9-1.1) Sodium (136-145) mmol/L Potassium (3.5-5.1) mmol/L Chloride (98-107) mmol/L Carbon Dioxide (21-32) mmol/L Anion Gap (3-11) BUN (6-23) mg/dl Creatinine (0.6-1.4) mg/dl Est Cr Clr Drug Dosing ml/min Est GFR ( Amer) ml/min Est GFR (Non-Af Amer) ml/min BUN/Creatinine Ratio (10-20) Glucose (70-99(Fasting)) mg/dl POC Glucose 139 H (70-99) mg/dl Calcium (8.5-10.1) mg/dl Magnesium (1.7-2.4) mg/dl Total Bilirubin (0.2-1.0) mg/dl AST (13-39) U/L ALT (7-52) U/L Alkaline Phosphatase (34-104) U/L Total Protein (6.0-8.3) gm/dl Albumin (3.4-5.0) gm/dl Globulin (2.5-4.0) gm/dl Albumin/Globulin Ratio (0.9-2)
--- NOTE | 2022-02-04 10:28 | Anesthesiology Consultation ---
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 History Surgery Operation Date: 02/04/22 07:00 Proposed Procedures p Endoscopic Retrograde Cholangiopancreato - Susanne Poe DO s Endoscopic Ultrasonography [facility] - Susanne Poe DO Height/Weight Height: 5 ft 10.5 in Weight: 90.2 kg Allergies Allergy/AdvReac Type Severity Reaction Status Date / Time No Known Allergies Allergy Unverified 05/26/21 14:42 Medications Home Medications Medication Instructions Recorded Confirmed Last Taken atorvastatin 20 mg tablet 20 mg PO DAILY 05/26/21 05/26/21 Unknown empagliflozin 10 mg tablet 10 mg PO DAILY 05/26/21 05/26/21 Unknown (Jardiance) lisinopril 5 mg tablet 5 mg PO QAM 05/26/21 05/26/21 05/24/21 metformin 500 mg tablet,extended 1,000 mg PO BID 05/26/21 05/26/21 05/24/21 release 24 hr torsemide 20 mg tablet 40 mg PO BID 05/26/21 05/26/21 Unknown apixaban 5 mg tablet (Eliquis) 5 mg PO BID 01/31/22 01/31/22 Unknown cephalexin 500 mg capsule 500 mg PO TID 01/31/22 01/31/22 Unknown Active Medications Generic Name Dose Route Start Last Admin Trade Name Freq PRN Reason Stop Dose Admin Apixaban 2.5 mg 01/31/22 09:00 02/01/22 08:24 Apixaban 2.5 Mg Tab PO 03/02/22 08:59 2.5 mg BID NATHAN Administration Atorvastatin Calcium 20 mg 01/31/22 09:00 02/01/22 08:24 Atorvastatin 20 Mg Tab PO 03/02/22 08:59 20 mg DAILY NATHAN Administration Heparin Sodium (Porcine) 5,000 units 02/02/22 22:00 02/04/22 06:07 Heparin Sod 5,000 Unit/0.5 Ml Vial SQ 03/04/22 21:59 Not Given Q8 NATHAN Piperacillin Sod/Tazobactam 115 mls @ 28.75 mls/hr 01/31/22 22:00 02/04/22 09:27 Sod 3.375 gm/ Dextrose IV 02/05/22 21:59 Infused Q8H NATHAN Infusion Protocol Insulin Aspart 0 units 01/31/22 07:30 02/04/22 07:59 Insulin Aspart Per Unit SC 03/02/22 07:29 Not Given ACHS NATHAN Miscellaneous 15 - 30 gm 02/02/22 07:45 02/02/22 07:40 Carbohydrates For Hypoglycemia PO 03/04/22 07:44 15 gm UD PRN Administration Hypoglycemia Treatment Ondansetron HCl 4 mg 02/02/22 08:11 02/04/22 05:46 Ondansetron Inj 2 Mg/Ml 2 Ml Vial IV 03/04/22 08:10 4 mg Q6H PRN Administration Nausea And Vomiting Saccharomyces Boulardii 250 mg 02/01/22 09:00 02/04/22 09:27 Saccharomyces Boulardii 250 Mg Cap PO 03/03/22 08:59 250 mg DAILY NATHAN Administration Past Medical History Medical History DM type 2 (diabetes mellitus, type 2) HLD (hyperlipidemia) HTN (hypertension) Past Surgical History Surgical History History of bowel resection Social History Smoking Status: Never smoker tobacco type: smokeless tobacco Do You Dip or Chew Tobacco: Yes Hx Alcohol Use: Yes Alcohol type: beer alcohol intake frequency: holidays/special occasions only Hx Substance Use: Yes substance use type: marijuana Last Used Substance: Unknown Physical Exam Vital Signs Last Vital Signs Temp 98.8 F 02/04/22 07:32 Pulse 58 L 02/04/22 07:32 Resp 16 02/04/22 07:32 BP 95/62 L 02/04/22 07:32 Pulse Ox 93 02/04/22 07:32 O2 Del Method 02/04/22 07:32 Testing Laboratory Results 02/04/22 05:51 02/04/22 05:51 PT 13.1 Seconds (9.0-12.0) H 02/04/22 05:51 INR 1.2 (0.9-1.1) H 02/04/22 05:51 APTT 32.4 Seconds (21.0-31.0) H 01/30/22 20:10 Hemoglobin A1c 8.3 % (4.5-5.6) H 01/31/22 05:15 Urine Color Yellow 01/31/22 03:54 Urine Appearance Clear (Clear) 01/31/22 03:54 Urine pH 5.0 (4.5-7.5) 01/31/22 03:54 Ur Specific Dana 1.020 (1.000-1.030) 01/31/22 03:54 Urine Protein Negative (Negative) 01/31/22 03:54 Urine Glucose (UA) Negative (Negative) 01/31/22 03:54 Urine Ketones Negative (Negative) 01/31/22 03:54 Urine Nitrite Negative (Negative) 01/31/22 03:54 Ur Leukocyte Esterase Negative (Negative) 01/31/22 03:54 01/30/22 20:54 Aerobic Blood Culture - Preliminary Blood No growth in Aerobic bottle after 48 hours. Anaerobic Blood Culture - Final 01/30/22 20:10 Aerobic Blood Culture - Preliminary Blood No growth in Aerobic bottle after 48 hours. Anaerobic Blood Culture - Preliminary No growth in Anaerobic bottle after 48 hours. 02/04/22 07:40 POC Glucose 97 Electrocardiogram Date: 02/02/22 Probable Sinus rhythm with 1st degree A-V block, rate 67 bpm Right superior axis deviation Non-specific intra-ventricular conduction block Abnormal ECG When compared with ECG of 02-FEB-2022 05:17, Criteria for Inferior infarct are no longer Present Confirmed by Kvng Evans ([id number]) on 02/02/2022 12:55:10 PM Chest X-Ray Date: 01/30/22 IMPRESSION: 1. Low lung volumes with bibasilar linear densities. This favors subsegmental atelectasis. 2. Cardiomegaly with mild central pulmonary vascular congestion. Echocardiogram Date: 02/01/22 LV systolic function is severely reduced EF = 25-30% There is moderate concentric LVH Mild MR Dilated IVC with reduced collapsibility with sniff indicates an elevated right atrial pressure of 15 mmHg Estimated systolic pulmonary pressure is 35 mmHg Echocardiographic images concerning for infiltrative cardiomyopathy
--- NOTE | 2022-02-04 10:29 | Pharmacy Report ---
Pharmacy Glycemic Short Note 2 - Date of Service February 04, 2022 - Glycemic Short BSG Results (Last 24 hours): 02/03/22 02/03/22 02/03/22 11:13 16:33 20:03 Glucose POC Glucose 139 H 106 H 152 H 02/04/22 02/04/22 05:51 07:40 Glucose 90 POC Glucose 97 OUTPATIENT ANTIDIABETIC REGIMEN: * Jardiance 10 mg PO daily * Metformin 1000 mg BID * HbA1C = 8.3% 01/31/22 ASSESSMENT: * Patient's BSGs yesterday were [phone] mg/dL. Patient received NO insulin. * Fasting today is 90 mg/dL. Patient NPO for procedure. * Continue to hold Lantus as fasting within goal. * Continue Novolog as all BSGs below goal. BACKGROUND * Patient's BSGs yesterday were 88-90-57 (pharmacy consulted)- 55 mg/dL. * Fasting today is 56 mg/dL. * Patient received 7 units of insulin yesterday (all BASAL insulin). * When consulted at dinnertime yesterday, pharmacist d/c'ed Lantus (given in AM). * With low today, continue to hold Lantus. * Novolog is currently at loose scale and will continue. PLAN FOR INPATIENT GLYCEMIC CONTROL: * Hold outpatient oral diabetes medications * Basal insulin * hold * Bolus insulin * NovoLog per scale ACHS or Q6hrs while NPO * Goal Range: Low 140 mg/dL - High 180 mg/dL * Correction Factor: 30 mg/dL/unit * Nutritional / Prandial insulin per carb ratio of 1 unit per 10 grams CHO consumed
--- NOTE | 2022-02-04 12:20 | Cardiology Progress Note ---
Date of Service February 04, 2022 Assessment & Plan (1) Elevated LFTs: (2) Cholelithiasis: (3) Acute hyponatremia: (4) Chronic systolic (congestive) heart failure: Plan: Findings suspicious for infiltrative cardiomyopathy with diffuse LV dysfunction (5) Atrial fibrillation: Plan: Controlled ventricular response rate Plan Patient with recent admission for acute CHF in [place]. Treated with aggressive diuresis. Torsemide 40 mg BID initiated on discharge in place of furosemide. Patient presented here with confusion, dehydration, hypotension, hyponatremia. Possibly underlying acute mich as well with nausea and abdominal pain. 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 Per review of prior records, this appears to be consistent with his history, conservative therapies recommended. however his LVEF has trended downward, now 25%. Clinically appears compensated from congestive heart failure standpoint at this time, remains in atrial fibrillation (present on admission) and rate control No changes yet at this time Hospitalist/gen surgery planning for possible ERCP on Friday. Holding Eliquis in anticipation of procedure. If any biopsies performed please send for amyloid screening Admission and Anticipated Discharge Date Admission Date: January 31, 2022 Physical Exam Constitutional: WD/WN, vitals as above no acute distress Respiratory: normal respiratory effort, lungs clear to auscultation Cardiovascular: Rate/Rhythm: regular rate, regular rhythm and + irregularly irregular Heart Sounds: + murmur (II/ systolic murmur) Vessels: no JVD Extremities: + edema (trace pretibial edema ) Gastrointestinal (Abdomen): normal bowel sounds, soft, nontender, no hepatosplenomegaly Musculoskeletal: no cyanosis or clubbing, extremities motor strength 5/5 Neurologic: PERRL, EOMI, accommodation nl, no face palsy, no dysarthria Psychiatric: A+Ox3, euthymic affect Results & Data ([facility]) Vital Signs (Past 12 Hours) Vital Signs Temp Pulse Pulse Resp BP Pulse Ox O2 Del Method 02/04/22 07:32 37.1 C 58 L 16 95/62 L 93 Room Air 02/04/22 07:25 70 02/04/22 03:00 37.1 C 83 19 113/65 97 Room Air
--- NOTE | 2022-02-04 12:54 | Hospitalist Progress Note ---
Date of Service February 04, 2022 Assessment & Plan (1) Elevated LFTs: (2) Cholelithiasis: (3) Hypotension: (4) Hyperglycemia: (5) Cellulitis: Plan Hypotension -Possibly early sepsis versus over diuresis -resolved with IV fluids and antibiotics -continue to hold diuretics and lisinopril -TSH, cortisol normal. TTE results noted (see below) -antibiotics broadened to Vancomycin/zosyn 01/31--> vancomycin discontinued 02/01, continue zosyn Chronic systolic CHF -TTE with EF 25% -currently appears euvolemic. Will hold torsemide and lisinopril for now. -Cardiology consulted, appreciate input. Amyloidosis workup planned Abnormal LFTs Cholelithiasis -MRCP was non diagnostic. Appreciate GI input, plan for ERCP--rescheduled for Friday due to endoscopy availability - Hold Eliquis. Place back on Full liquid diet, NPO pM -continue zosyn Type 2 NIDDM with hyperglycemia -Better glycemic control currently -Management per glycemic pharmacist Bilateral Lower extremity cellulitis -already on Zosyn DVT ppx - SQ heparin Admission and Anticipated Discharge Date Admission Date: January 31, 2022 Subjective Patient upset that his EGD got rescheduled No further nausea Physical Exam Physical Exam: Laying in bed, no acute distress, upset Respiratory: breathing comfortably on room air, no wheezing/rhonchi/rales Cardiovascular: regular rate and rhythm, no murmurs/rubs/gallops Gastrointestinal (Abdomen): soft, non tender Musculoskeletal: no edema, no cyanosis Neurologic: awake, alert, spontaneously moving extremities Results & Data Results & Data ([facility]) Vital Signs (Past 12 Hours) Vital Signs Temp Pulse Pulse Resp BP Pulse Ox O2 Del Method 02/04/22 07:32 37.1 C 58 L 16 95/62 L 93 Room Air 02/04/22 07:25 70 02/04/22 03:00 37.1 C 83 19 113/65 97 Room Air Laboratory Results Short CBC 02/04/22 Range/Units 05:51 WBC 4.06 L (4.8-10.8) K/ul Hgb 10.5 L (14.0-18.0) g/dl Hct 31.1 L (40.1-51.0) % Plt Count 162 (130-400) K/uL [facility] 02/04/22 05:51 Sodium 125 L Potassium 4.2 Chloride 92 L Carbon Dioxide 26 BUN 26 H Creatinine 0.95 Glucose 90 Calcium 8.8 Liver Function 02/04/22 Range/Units 05:51 Total Bilirubin 1.4 H (0.2-1.0) mg/dl AST 50 H (13-39) U/L ALT 28 (7-52) U/L Alkaline Phosphatase 359 H (34-104) U/L Albumin 3.4 (3.4-5.0) gm/dl Medications Administered Current Inpatient Medications Acetaminophen (Acetaminophen 325 Mg Tab) 650 mg PO Q4H PRN PRN Reason: Pain or Fever Stop: 03/02/22 02:57 Apixaban (Apixaban 2.5 Mg Tab) 2.5 mg PO BID NATHAN Stop: 03/02/22 08:59 Last Admin: 02/01/22 08:24 Dose: 2.5 mg Atorvastatin Calcium (Atorvastatin 20 Mg Tab) 20 mg PO DAILY NATHAN Stop: 03/02/22 08:59 Last Admin: 02/01/22 08:24 Dose: 20 mg Dextrose (Dextrose 50% 50 Ml Syringe) 25 - 50 ml IV UD PRN; Protocol PRN Reason: Hypoglycemia Protocol Stop: 03/04/22 07:44 Glucagon (Glucagon For Inj 1 Mg Vial) 1 mg IM UD PRN; Protocol PRN Reason: Hypoglycemia Protocol Stop: 03/04/22 07:44 Glucose (Glucose 40% Gel 15 Gm Tube) 15 - 30 gm PO UD PRN; Protocol PRN Reason: Hypoglycemia Protocol Stop: 03/04/22 07:44 Glucose (Glucose 10 Tab/Tube) 4 - 8 tab PO UD PRN; Protocol PRN Reason: Hypoglycemia Protocol Stop: 03/04/22 07:44 Heparin Sodium (Porcine) (Heparin Sod 5,000 Unit/0.5 Ml Vial) 5,000 units SQ Q8 NATHAN Stop: 03/04/22 21:59 Last Admin: 02/04/22 06:07 Dose: Not Given Piperacillin Sod/Tazobactam (Sod 3.375 gm/ Dextrose) 115 mls @ 28.75 mls/hr IV Q8H NATHAN; Protocol Stop: 02/07/22 21:59 Last Infusion: 02/04/22 09:27 Dose: Infused Insulin Aspart (Insulin Aspart Per Unit) 0 units SC ACHS [facility] Stop: 03/02/22 07:29 Last Admin: 02/04/22 12:33 Dose: Not Given Miconazole Nitrate (Miconazole Nitrate Powder 43 Gm) 1 appln EXT PRN PRN PRN Reason: Affected Skin Folds Stop: 03/06/22 05:05 Miscellaneous (Carbohydrates For Hypoglycemia ) 15 - 30 gm PO UD PRN PRN Reason: Hypoglycemia Treatment Stop: 03/04/22 07:44 Last Admin: 02/02/22 07:40 Dose: 15 gm Miscellaneous Information (Pharmacy Glycemic Mgmt Consult) 1 each N/A UD PRN PRN Reason: Consult Stop: 03/03/22 18:22 Nitroglycerin (Nitroglycerin Sl 0.4 Mg/Tab Tab) 0.4 mg SL Q5M PRN PRN Reason: Chest Pain Stop: 03/02/22 02:57 Ondansetron HCl (Ondansetron Inj 2 Mg/Ml 2 Ml Vial) 4 mg IV Q6H PRN PRN Reason: Nausea And Vomiting Stop: 03/04/22 08:10 Last Admin: 02/04/22 05:46 Dose: 4 mg Polyethylene Glycol (Polyethylene (Miralax) 17 Gm Pack) 17 gm PO DAILY PRN PRN Reason: Constipation Stop: 03/04/22 13:36 Saccharomyces Boulardii (Saccharomyces Boulardii 250 Mg Cap) 250 mg PO DAILY NATHAN Stop: 03/03/22 08:59 Last Admin: 02/04/22 09:27 Dose: 250 mg (1) Hypotension Hypotension type: unspecified hypotension type Qualified Code(s): I95.9 - Hypotension, unspecified (2) Cellulitis Laterality: unspecified laterality Site of cellulitis: extremity Site of cellulitis of extremity: lower extremity Qualified Code(s): L03.119 - Cellulitis of unspecified part of limb
[2022-02-05] MEDS: HEPARIN SOD 5,000 UNIT/0.5 ML VIAL SQ SCH ×3 (05:04→21:30)
[2022-02-05] MEDS: PIPERACILLIN/TAZOBACTAM 3.375 GM in DEXTROSE 5% 100 ML IV SCH ×3 (05:15→21:30)
[2022-02-05] MEDS ORDERED: Nursing to Pharmacy Communication SCH (05:15)
[2022-02-05] MEDS: INSULIN ASPART PER UNIT SC SCH ×3 (05:17→16:56)
[2022-02-05 07:56] LABS: Hematocrit (blood only) 33.3 % (40.1-51.0); Hemoglobin 10.9 g/dl (14.0-18.0); Mean Corpuscular Hemoglobin 29.1 pg (25.0-34.0); Mean Corpuscular Hgb Conc 32.7 g/dL (32.0-36.0); Mean Platelet Volume 10.2 fL (9.4-12.4); Platelet Count 173 K/uL (130-400); RDW Standard Deviation 55.2 fL (36.4-46.3); Red Blood Count 3.74 M/uL (4.63-6.08); White Blood Count 4.41 K/ul (4.8-10.8)
[2022-02-05 08:04] LABS: Albumin Globulin Ratio 0.9 (0.9-2); Albumin Level 3.4 gm/dl (3.4-5.0); Bilirubin,Total 1.5 mg/dl (0.2-1.0); Calcium 8.8 mg/dl (8.5-10.1); Creatinine Clr Calc Pharmacy 75.4 ml/min; Est GFR (African American) 93.4 ml/min; Est GFR (Non-African American) 80.6 ml/min; Globulin 3.7 gm/dl (2.5-4.0); Magnesium 1.7 mg/dl (1.7-2.4); Potassium 4.2 mmol/L (3.5-5.1); Total Protein 7.1 gm/dl (6.0-8.3)
--- NOTE | 2022-02-05 09:05 | Communication Note ---
Date of Service: February 05, 2022 Patient scheduled for ERCP/EGD/EUS today. Will follow up with patient after results of procedure. Please continue to hold patient's Eliquis for now until a decision on surgical intervention has been made. Thank you
[2022-02-05] MEDS: SACCHAROMYCES BOULARDII 250 MG CAP PO SCH (09:24)
--- NOTE | 2022-02-05 09:41 | Communication Note ---
Date of Service: February 05, 2022 Pt was seen and evaluated, chart reviewed. No concerns. Remains NPO for tenetative EGD/EUS +/- LB pending endoscopy availability. Due to unavailability of endoscopic staff the patient's case will likely be performed on Friday. Leave the patient n.p.o. at midnight for potential upper endoscopy with endoscopic ultrasound tomorrow. Based on the history I wonder about congestive hepatopathy as opposed to a biliary process. We will also consent the patient for ERCP in case gallstone disease is noted.
--- NOTE | 2022-02-05 11:13 | Pharmacy Report ---
Pharmacy Glycemic Sign Off Nt - Date of Service February 05, 2022 - Assessment & Plan ASSESSMENT: * Pharmacy was consulted on 02/01/22 for glycemic control and to write orders per [facility] inpatient glycemic control protocol. * Major changes made by pharmacy to antidiabetic regimen include: * Basal insulin was discontinued * Patient has been receiving/requiring zero insulin per day for adequate glycemic control * BSGs ranging from 55-134 mg/dl over the past several days * Regimen has not required any adjustments over the past 48hrs to achieve this level of control (hypoglycemic event evening of 02/04 was not the result of any insulin administration. Expect that this was likely d/t NPO? ) * Do not anticipate further changes in patient status that would quickly deteriorate glycemic control. * Patient is currently NPO for upcoming procedure, and has not been receiving any insulin. * Once diet advances, expect that patient will continue to not require basal insulin. Current Novolog parameters are conservative and should be appropriate when diet resumes. * Please see recommendations for outpatient antidiabetic regimen below. PLAN FOR INPATIENT GLYCEMIC CONTROL: No changes needed to current regimen. * No basal insulin is required. * Continue NovoLog per scale ACHS/Q6hrs while NPO * Goal range = 140-180 mg/dl * CF = 30 mg/dl/unit * CR = 1 unit for ever 10 g CHO consumed * Pharmacy is signing off of glycemic consult and will no longer be making adjustments to inpatient regimen. Please feel free to re-consult if needed. Thank you.
[2022-02-05 16:02] LABS: Albumin 3.6 g/dL (3.8-4.8); Alpha 1 Globulin 0.3 g/dL (0.2-0.3); Alpha 2 Globulin 0.7 g/dL (0.5-0.9); Beta-1-Globulin 0.5 g/dL (0.4-0.6); Beta-2-Globulin 0.4 g/dL (0.2-0.5); Gamma Globulin 1.6 g/dL (0.8-1.7); Monoclonal Protein Band 2 DNR g/dL (NONE DETECTED); Monoclonal Protein Band 3 DNR g/dL (NONE DETECTED); Total Protein 7.1 g/dL (6.1-8.1)
--- NOTE | 2022-02-05 17:35 | Hospitalist Progress Note ---
Date of Service February 05, 2022 Assessment & Plan (1) Elevated LFTs: (2) Cholelithiasis: (3) Hypotension: (4) Hyperglycemia: (5) Cellulitis: Plan Hypotension -Possibly early sepsis versus over diuresis -resolved with IV fluids and antibiotics -continue to hold diuretics and lisinopril -TSH, cortisol normal. TTE results noted (see below) -antibiotics broadened to Vancomycin/zosyn 01/31--> vancomycin discontinued 02/01, continue zosyn Chronic systolic CHF -TTE with EF 25% -currently appears euvolemic. Will hold torsemide and lisinopril for now. -Cardiology consulted, appreciate input. Amyloidosis workup planned Abnormal LFTs Cholelithiasis -MRCP was non diagnostic. Appreciate GI input, plan for ERCP--rescheduled again for tomorrow - Hold Eliquis. Place back on Full liquid diet, NPO pM -continue zosyn Type 2 NIDDM with hyperglycemia -Better glycemic control currently -Management per glycemic pharmacist Bilateral Lower extremity cellulitis -already on Zosyn DVT ppx - SQ heparin Disposition -Evaluated by PT and rehab recommended although patient not interested in rehab. Admission and Anticipated Discharge Date Admission Date: January 31, 2022 Subjective Patient angry that his ERCP got delayed again. "it's been 3 days!" "I'm just going to go home and take care of myself!" "I'm going to have my son bring me in real food and I'm going to eat it!" Physical Exam Physical Exam: sleeping comfortably, easily arousable, became very upset when he found out his procedure got delayed again ENMT: Normocephalic, atraumatic, mucous membrane moist Respiratory: breathing comfortably on room air, no accessory muscle use Cardiovascular: deferred due to patient's mood Musculoskeletal: no edema, no cyanosis or clubbing Neurologic: awake,alert, spontaneously moving extremities Results & Data Results & Data ([facility]) Vital Signs (Past 12 Hours) Vital Signs Temp Pulse Pulse Resp BP BP Pulse Ox 02/05/22 15:40 36.3 C L 60 18 111/73 94 02/05/22 14:50 60 02/05/22 13:07 02/05/22 12:04 36.3 C L 58 L 19 119/74 96 02/05/22 07:48 36.4 C L 59 L 18 109/74 93 02/05/22 07:48 59 L O2 Del Method 02/05/22 15:40 Room Air 02/05/22 14:50 02/05/22 13:07 Room Air 02/05/22 12:04 Room Air 02/05/22 07:48 Room Air 02/05/22 07:48 Laboratory Results Short CBC 02/05/22 Range/Units 07:22 WBC 4.41 L (4.8-10.8) K/ul Hgb 10.9 L (14.0-18.0) g/dl Hct 33.3 L (40.1-51.0) % Plt Count 173 (130-400) K/uL BMP 02/05/22 07:22 Sodium 125 L Potassium 4.2 Chloride 93 L Carbon Dioxide 25 BUN 22 Creatinine 0.88 Glucose 88 Calcium 8.8 Liver Function 02/05/22 Range/Units 07:22 Total Bilirubin 1.5 H (0.2-1.0) mg/dl AST 45 H (13-39) U/L ALT 26 (7-52) U/L Alkaline Phosphatase 361 H (34-104) U/L Albumin 3.4 (3.4-5.0) gm/dl Medications Administered Current Inpatient Medications Acetaminophen (Acetaminophen 325 Mg Tab) 650 mg PO Q4H PRN PRN Reason: Pain or Fever Stop: 03/02/22 02:57 Apixaban (Apixaban 2.5 Mg Tab) 2.5 mg PO BID NATHAN Stop: 03/02/22 08:59 Last Admin: 02/01/22 08:24 Dose: 2.5 mg Atorvastatin Calcium (Atorvastatin 20 Mg Tab) 20 mg PO DAILY NATHAN Stop: 03/02/22 08:59 Last Admin: 02/01/22 08:24 Dose: 20 mg Dextrose (Dextrose 50% 50 Ml Syringe) 25 - 50 ml IV UD PRN; Protocol PRN Reason: Hypoglycemia Protocol Stop: 03/04/22 07:44 Glucagon (Glucagon For Inj 1 Mg Vial) 1 mg IM UD PRN; Protocol PRN Reason: Hypoglycemia Protocol Stop: 03/04/22 07:44 Glucose (Glucose 40% Gel 15 Gm Tube) 15 - 30 gm PO UD PRN; Protocol PRN Reason: Hypoglycemia Protocol Stop: 03/04/22 07:44 Glucose (Glucose 10 Tab/Tube) 4 - 8 tab PO UD PRN; Protocol PRN Reason: Hypoglycemia Protocol Stop: 03/04/22 07:44 Heparin Sodium (Porcine) (Heparin Sod 5,000 Unit/0.5 Ml Vial) 5,000 units SQ Q8 NATHAN Stop: 03/04/22 21:59 Last Admin: 02/05/22 14:04 Dose: 5,000 units Piperacillin Sod/Tazobactam (Sod 3.375 gm/ Dextrose) 115 mls @ 28.75 mls/hr IV Q8H NATHAN; Protocol Stop: 02/07/22 21:59 Last Admin: 02/05/22 14:02 Dose: 28.8 mls/hr Insulin Aspart (Insulin Aspart Per Unit) 0 units SC Q6 NATHAN Stop: 03/07/22 05:59 Last Admin: 02/05/22 16:56 Dose: Not Given Miconazole Nitrate (Miconazole Nitrate Powder 43 Gm) 1 appln EXT PRN PRN PRN Reason: Affected Skin Folds Stop: 03/06/22 05:05 Miscellaneous (Carbohydrates For Hypoglycemia ) 15 - 30 gm PO UD PRN PRN Reason: Hypoglycemia Treatment Stop: 03/04/22 07:44 Last Admin: 02/02/22 07:40 Dose: 15 gm Nitroglycerin (Nitroglycerin Sl 0.4 Mg/Tab Tab) 0.4 mg SL Q5M PRN PRN Reason: Chest Pain Stop: 03/02/22 02:57 Ondansetron HCl (Ondansetron Inj 2 Mg/Ml 2 Ml Vial) 4 mg IV Q6H PRN PRN Reason: Nausea And Vomiting Stop: 03/04/22 08:10 Last Admin: 02/04/22 05:46 Dose: 4 mg Polyethylene Glycol (Polyethylene (Miralax) 17 Gm Pack) 17 gm PO DAILY PRN PRN Reason: Constipation Stop: 03/04/22 13:36 Saccharomyces Boulardii (Saccharomyces Boulardii 250 Mg Cap) 250 mg PO DAILY [facility] Stop: 03/03/22 08:59 Last Admin: 02/05/22 09:24 Dose: 250 mg (1) Hypotension Hypotension type: unspecified hypotension type Qualified Code(s): I95.9 - Hypotension, unspecified (2) Cellulitis Laterality: unspecified laterality Site of cellulitis: extremity Site of cellulitis of extremity: lower extremity Qualified Code(s): L03.119 - Cellulitis of unspecified part of limb
[2022-02-06] MEDS: INSULIN ASPART PER UNIT SC SCH ×5 (01:25→21:11)
[2022-02-06] MEDS: HEPARIN SOD 5,000 UNIT/0.5 ML VIAL SQ SCH (05:10)
[2022-02-06] MEDS: PIPERACILLIN/TAZOBACTAM 3.375 GM in DEXTROSE 5% 100 ML IV SCH ×3 (05:42→21:11)
[2022-02-06 08:23] LABS: Hematocrit (blood only) 33.8 % (40.1-51.0); Hemoglobin 10.9 g/dl (14.0-18.0); Mean Corpuscular Hgb Conc 32.2 g/dL (32.0-36.0); Mean Corpuscular Volume 89.9 fL (80.0-100.0); Mean Platelet Volume 10.4 fL (9.4-12.4); Platelet Count 172 K/uL (130-400); RDW Coefficient of Variation 17.1 % (11.5-14.5); RDW Standard Deviation 56.5 fL (36.4-46.3); Red Blood Count 3.76 M/uL (4.63-6.08); White Blood Count 4.71 K/ul (4.8-10.8)
[2022-02-06 08:31] LABS: INR 1.3 (0.9-1.1); Prothrombin Time 13.2 Seconds (9.0-12.0)
[2022-02-06] MEDS: SACCHAROMYCES BOULARDII 250 MG CAP PO SCH (08:34)
[2022-02-06 09:04] LABS: Albumin Globulin Ratio 0.9 (0.9-2); Albumin Level 3.3 gm/dl (3.4-5.0); BUN Creatinine Ratio 19.8 (10-20); Bilirubin,Total 1.5 mg/dl (0.2-1.0); Calcium 8.5 mg/dl (8.5-10.1); Creatinine Clr Calc Pharmacy 76.4 ml/min; Est GFR (African American) 94.3 ml/min; Est GFR (Non-African American) 81.3 ml/min; Globulin 3.5 gm/dl (2.5-4.0); Potassium 4.1 mmol/L (3.5-5.1); Total Protein 6.8 gm/dl (6.0-8.3)
--- NOTE | 2022-02-06 09:26 | Communication Note ---
Date of Service: February 06, 2022 Pt was seen, chart reviewed. NPO for EUS-LB +/- ERCP this AM pending OR availability. Risks/benefits discussed, all questions answered. Encouraged to remain NPO for procedure anticipated this AM. Thank you for allowing us to participate in the care of this patient. Please call with any acute changes, questions or concerns. Please see addendum below with additional recommendation from my supervising physician.
[2022-02-06] MEDS ORDERED: ePHEDrine sulfate 50 MG/ML AMP IV PRN (10:56)
[2022-02-06] MEDS ORDERED: ONDANSETRON INJ 2 MG/ML 2 ML VIAL IV PRN (10:56)
[2022-02-06] MEDS ORDERED: ATROPINE SULFATE 0.1 MG/ML 10ML SYR IV PRN (10:56)
[2022-02-06] MEDS ORDERED: fentaNYL citrate 100 MCG/2 ML VIAL IV PRN (10:56)
[2022-02-06] MEDS ORDERED: MIDAZOLAM HCL 1 MG/ML 2ML VIAL ONE (11:09)
[2022-02-06] MEDS ORDERED: fentaNYL citrate 100 MCG/2 ML VIAL ONE (11:09)
--- NOTE | 2022-02-06 11:24 | History & Physical Bridge Note ---
Date of Service February 06, 2022 History & Physical Bridge Note I have examined the patient, reviewed the History & Physical and in the interval since the performance of the History & Physical I have noted the following changes of clinical significance: no changes noted. The patient has a history of LFT elevation with indeterminant imaging. We are planning for EGD with EUS and either ERCP or liver biopsy pending the EUS Findings. Risks have been discussed to include bleeding, infection, perforation, pain, hematoma, pancreatitis, and failed biliary cannulation.
[2022-02-06] MEDS ORDERED: INDOMETHACIN 50 MG SUPP PR ONE (11:25)
--- NOTE | 2022-02-06 11:35 | Communication Note ---
Date of Service: February 06, 2022 The patient underwent upper endoscopy this morning. He was found to have evidence of diffuse gastritis in addition to a clean-based ulcer of the lesser curvature of the gastric body. Recommendations Advance diet as tolerated Avoid use of nonsteroidals if possible Protonix 40 mg once daily for 6 weeks then 20 mg daily thereafter Carafate 1 g 4 times daily for 2 weeks Repeat upper endoscopy in 8 to 12 weeks to ensure ulcer healing Please call with any questions or concerns, GI to sign off
[2022-02-06] MEDS ORDERED: HEPARIN 100 UNIT/ML 5ML FLUSH ONE ×2 (11:44→12:54)
--- NOTE | 2022-02-06 12:07 | GI REPORT ---
Patient Name: Tam Weaver Procedure Date: 02/06/2022 11:43 AM Date of : 1940 Admit Type: Inpatient Age: 81 Gender: Male Attending MD: Susanne Poe DO Procedure: Upper GI endoscopy Providers: Susanne Poe DO Referring MD: Benson Amos Md Indications: Epigastric abdominal pain, Abdominal pain in the right upper quadrant Medicines: General Anesthesia Complications: No immediate complications. Estimated blood loss: Minimal. Estimated Blood Loss: Estimated blood loss was minimal. Procedure: Pre-Anesthesia Assessment: - Prior to the procedure, a History and Physical was performed, and patient medications, allergies and sensitivities were reviewed. The patient's tolerance of previous anesthesia was reviewed. - The risks and benefits of the procedure and the sedation options and risks were discussed with the patient. All questions were answered and informed consent was obtained. - Patient identification and proposed procedure were verified prior to the procedure by the physician, the nurse and the hooker inspector. The procedure was verified in the procedure room. - Pre-procedure physical examination revealed no contraindications to sedation. - ASA Grade Assessment: IV - A patient with severe systemic disease that is a constant threat to life. - After reviewing the risks and benefits, the patient was deemed in satisfactory condition to undergo the procedure. - The anesthesia plan was to use general anesthesia. - Immediately prior to administration of medications, the patient was re-assessed for adequacy to receive sedatives. - General anesthesia was attained. - The heart rate, respiratory rate, oxygen saturations, blood pressure, adequacy of pulmonary ventilation, and response to care were monitored throughout the procedure. - The physical status of the patient was re-assessed after the procedure. After obtaining informed consent, the endoscope was passed under direct vision. Throughout the procedure, the patient's blood pressure, pulse, and oxygen saturations were monitored continuously. The Endoscope was introduced through the mouth, and advanced to the third part of duodenum. The upper GI endoscopy was accomplished without difficulty. The patient tolerated the procedure well. Findings: The examined esophagus was normal. The Z-line was regular and was found 39 cm from the incisors. Diffuse mild inflammation characterized by congestion (edema), erythema and granularity was found in the entire examined stomach. Biopsies were taken with a cold forceps for histology. The pathology specimen was placed into Bottle A. Estimated blood loss was minimal. The examined duodenum was normal. Impression: - Normal esophagus. - Z-line regular, 39 cm from the incisors. - Gastritis. Biopsied. - Normal examined duodenum. Recommendation: - Perform an upper endoscopic ultrasound (UEUS) today. - Await pathology results. Susanne Poe D.O. Susanne Poe, 02/06/2022 12:07:18 PM This report has been signed electronically. Note Initiated On: 02/06/2022 11:43 AM Number of Addenda: 0 I attest to the content of the Intraoperative Record and orders documented therein, exceptions below {[id number]}
[2022-02-06] MEDS ORDERED: SUCCINYLCHOLINE CHLORIDE 20 MG/ML 10 ML VIAL IV ONE (12:13)
[2022-02-06] MEDS ORDERED: ONDANSETRON INJ 2 MG/ML 2 ML VIAL ONE (12:13)
[2022-02-06] MEDS ORDERED: LIDOCAINE 2% MPF LOCAL 5 ML VIAL INFIL ONE (12:13)
--- NOTE | 2022-02-06 12:32 | GI REPORT ---
Patient Name: Tam Weaver Procedure Date: 02/06/2022 12:07 PM Date of : 1940 Admit Type: Inpatient Age: 81 Gender: Male Attending MD: Susanne Poe DO Procedure: Upper EUS Providers: Susanne Poe DO Referring MD: Benson Amos Md Indications: Elevated liver enzymes, Suspected choledocholithiasis Medicines: General Anesthesia Complications: No immediate complications. Estimated blood loss: Minimal. Estimated Blood Loss: Estimated blood loss was minimal. Procedure: Pre-Anesthesia Assessment: - Prior to the procedure, a History and Physical was performed, and patient medications, allergies and sensitivities were reviewed. The patient's tolerance of previous anesthesia was reviewed. - The risks and benefits of the procedure and the sedation options and risks were discussed with the patient. All questions were answered and informed consent was obtained. - Patient identification and proposed procedure were verified prior to the procedure by the physician, the nurse and the dry sand molder. The procedure was verified in the procedure room. - Pre-procedure physical examination revealed no contraindications to sedation. - ASA Grade Assessment: IV - A patient with severe systemic disease that is a constant threat to life. - After reviewing the risks and benefits, the patient was deemed in satisfactory condition to undergo the procedure. - The anesthesia plan was to use general anesthesia. - Immediately prior to administration of medications, the patient was re-assessed for adequacy to receive sedatives. - The heart rate, respiratory rate, oxygen saturations, blood pressure, adequacy of pulmonary ventilation, and response to care were monitored throughout the procedure. - The physical status of the patient was re-assessed after the procedure. After obtaining informed consent, the endoscope was passed under direct vision. Throughout the procedure, the patient's blood pressure, pulse, and oxygen saturations were monitored continuously. The Scope was introduced through the mouth, and advanced to the third part of duodenum. The upper EUS was accomplished without difficulty. The patient tolerated the procedure well. The scope was introduced through the mouth, and advanced to the second part of duodenum. Findings: ENDOSONOGRAPHIC FINDING: : There was no sign of significant endosonographic abnormality in the ampulla. No pathologic lymphadenopathy and no masses were identified. Multiple stones were visualized endosonographically in the gallbladder. They were hyperechoic and characterized by shadowing. There was no sign of significant endosonographic abnormality in the common bile duct. The maximum diameter of the duct was 5 mm. No stones, no biliary sludge and ducts of normal caliber were identified. There was no sign of significant endosonographic abnormality in the entire pancreas. No masses, no cysts. There was no sign of significant endosonographic abnormality in the left adrenal gland. No adrenal gland enlargement was identified. No lymphadenopathy seen. There was no sign of significant endosonographic abnormality in the visualized portion of the liver. Homogeneous parenchyma was identified. Fine needle biopsy was performed. Color Doppler imaging was utilized prior to needle puncture to confirm a lack of significant vascular structures within the needle path. One pass was made with the 19 gauge ultrasound core biopsy needle ([employer] needle) using a transgastric approach. A visible core of tissue was obtained. Final cytology results are pending. The pathology specimen was placed into Bottle B. Estimated blood loss was minimal. Impression: - There was no sign of significant pathology in the ampulla. - Multiple stones were visualized endosonographically in the gallbladder. - There was no sign of significant pathology in the common bile duct. - There was no sign of significant pathology in the entire pancreas. - Endosonographic images of the left adrenal gland were unremarkable. - There was no evidence of significant pathology in the visualized portion of the liver. Fine needle biopsy performed. Recommendation: - [facility]. - Advance diet as tolerated today. - No aspirin, ibuprofen, naproxen, or other non-steroidal anti-inflammatory drugs for 5 days. - Await path results. - Observe patient's clinical course. Susanne Poe D.O. Susanne Poe, 02/06/2022 12:32:10 PM This report has been signed electronically. Note Initiated On: 02/06/2022 12:07 PM Number of Addenda: 0 I attest to the content of the Intraoperative Record and orders documented therein, exceptions below {[id number]}
--- NOTE | 2022-02-06 12:40 | Post Operative Brief Note ---
Immediate Post Op Note v1 Date of Surgery February 06, 2022 Pre & Post Diagnosis Operation Date: 02/06/22 13:00 Pre-Op Diagnosis: ELEVATED LIVER ENZYMES Post-Op Diagnosis: GASTRITIS STONES IN GALL BLADDER, NORMAL COMMON BILE DUCT LIVER BIOPSY OBTAINED I identified the patient and participated in the time-out.: Yes Procedure Operation Date: 02/06/22 13:00 Actual Procedures s Endoscopic Ultrasonography Upper - Susanne Poe DO s Ultrasound Liver Biopsy Anesthesia Sedat - Susanne Poe DO p Esophagogastroduodenoscopy WITH BX - Susanne Poe DO Surgeon Susanne Poe, Cloth Dyer NONW Estimated Blood Loss 0 Findings Consistent with Post-Op Diagnosis Drains Other (CONDOM CATHETER IN PLACE PRIOR TO PROCEDURE)
--- NOTE | 2022-02-06 12:41 | Communication Note ---
Date of Service: February 06, 2022 The patient underwent upper endoscopy and endoscopic ultrasound today for evaluation of his elevated liver tests. The patient was found to have mild gastritis, a liver biopsy was also obtained as there was no evidence of choledocholithiasis. The patient does have evidence of stones within his gallbladder. Recommendations Await liver biopsy results suspect liver enzyme elevation is related to congestive hepatopathy Avoid nonsteroidals and anticoagulation for 5 days Advance diet as tolerated Please call with any questions or concerns GI to sign off
--- NOTE | 2022-02-06 13:08 | Anesthesiology Progress Note ---
Date of Service February 06, 2022 Anesthesia Post Procedure Vital Signs Vital Signs: Temp Pulse Pulse Resp BP Pulse Ox O2 Del Method 02/06/22 13:00 57 L 18 114/71 100 Oxymask 02/06/22 12:50 57 L 18 99/64 L 100 Oxymask 02/06/22 12:43 96.8 F L 57 L 18 121/81 96 Oxymask 02/06/22 11:10 Room Air 02/06/22 10:52 97.5 F L 59 L 18 105/59 L 97 Room Air 02/06/22 07:29 97.5 F L 59 L 19 115/76 94 Room Air 02/06/22 07:26 58 L 02/06/22 05:01 97.3 F L 59 L 18 131/80 95 02/05/22 22:17 59 L 02/06/22 01:31 92 Room Air 02/05/22 23:42 96.6 F L 60 18 122/77 89 L Room Air 02/05/22 18:34 97.5 F L 57 L 18 108/71 94 Room Air 02/05/22 15:40 97.3 F L 60 18 111/73 94 Room Air 02/05/22 14:50 60 O2 Flow Rate 02/06/22 13:00 4 02/06/22 12:50 4 02/06/22 12:43 4 02/06/22 11:10 02/06/22 10:52 02/06/22 07:29 02/06/22 07:26 02/06/22 05:01 02/05/22 22:17 02/06/22 01:31 02/05/22 23:42 02/05/22 18:34 02/05/22 15:40 02/05/22 14:50 Transfer of Care Handoff Completed per policy Notes Mental Status: alert / awake / arousable and participated in evaluation Patient Amnestic to Procedure: Yes Nausea / Vomiting: adequately controlled Pain: adequately controlled Airway Patency, RR, SpO2: stable & adequate BP & HR: stable & adequate Hydration State: stable & adequate Anesthetic Complications: no major complications apparent and Pt Satisfied with anesthetic care
--- NOTE | 2022-02-06 13:36 | Cardiology Progress Note ---
Date of Service February 06, 2022 Assessment & Plan (1) Elevated LFTs: (2) Cholelithiasis: (3) Acute hyponatremia: Plan: Patient has chronic hyponatremia review of outpatient records (4) Chronic systolic (congestive) heart failure: (5) Atrial fibrillation: Plan Patient is a complex 81-year-old male admitted for acute dehydration elevated hepatic enzymes likely congestive in etiology superimposed on known cardiomyo mili possible infiltrative (amyloid?) Currently compensated without signs of heart failure and renal function has returned to baseline with persistent chronic hyponatremia after holding diuretic and RICHELLE inhibitor ERCP performed today with liver biopsy Recommendations: Would resume low-dose diuretic on discharge with furosemide 20 mg 3 days/week with CHF instructions, daily weights Would not resume RICHELLE inhibitor, statin Restart apixaban as per GI recommendation 5 days post procedure Follow-up with cardiology Cedrick Porter as scheduled 02/28/2020 Admission and Anticipated Discharge Date Admission Date: January 31, 2022 Subjective Was seen and examined, telemetry reviewed. Patient remains in atrial fibrillation with controlled ventricular response rate Underwent endoscopy has per chart as well as liver biopsy earlier today. Tolerated well. No fevers chills, no chest pains or shortness of breath Review of Systems Review of Systems: All systems reviewed & are unremarkable except as noted in Subjective Physical Exam Constitutional: well developed and well nourished; no acute distress Eyes: PERRL, conjunctivae normal, anicteric sclerae ENMT: external ear and nose normal, oropharynx normal Neck: trachea midline, no thyromegaly Respiratory: normal respiratory effort Cardiovascular: Rate/Rhythm: + irregularly irregular Heart Sounds: normal S1 and normal S2 Vessels: no JVD Extremities: no edema Gastrointestinal (Abdomen): normal bowel sounds, soft, nontender, no hepatosplenomegaly Results & Data ([facility]) Vital Signs (Past 12 Hours) Vital Signs Temp Pulse Pulse Resp BP Pulse Ox O2 Del Method 02/06/22 13:10 36.2 C L 58 L 18 119/68 100 Oxymask 02/06/22 13:00 57 L 18 114/71 100 Oxymask 02/06/22 12:50 57 L 18 99/64 L 100 Oxymask 02/06/22 12:43 36.0 C L 57 L 18 121/81 96 Oxymask 02/06/22 11:10 Room Air 02/06/22 10:52 36.4 C L 59 L 18 105/59 L 97 Room Air 02/06/22 07:29 36.4 C L 59 L 19 115/76 94 Room Air 02/06/22 07:26 58 L 02/06/22 05:01 36.3 C L 59 L 18 131/80 95 O2 Flow Rate 02/06/22 13:10 4 02/06/22 13:00 4 02/06/22 12:50 4 02/06/22 12:43 4 02/06/22 11:10 02/06/22 10:52 02/06/22 07:29 02/06/22 07:26 02/06/22 05:01 Laboratory Results Laboratory Results - last 24 hr 02/02/22 02/05/22 02/05/22 05:33 16:43 20:09 WBC RBC Hgb Hct MCV MCH MCHC RDW Std Deviation RDW Coeff of Carolyn Plt Count MPV PT INR Sodium Potassium Chloride Carbon Dioxide Anion Gap BUN Creatinine Est Cr Clr Drug Dosing Est GFR ( Amer) Est GFR (Non-Af Amer) BUN/Creatinine Ratio Glucose POC Glucose 103 H 105 H Calcium Total Bilirubin AST ALT Alkaline Phosphatase Total Protein Total Protein (PEP) 7.1 Albumin Albumin (PEP) 3.6 L Globulin Albumin/Globulin Ratio Scvnb-6-Oextrvvzz 0.3 Qdyzf-6-Rtzummvtw 0.7 Ckcd-4-Wzbuqgao 0.5 Most-4-Aatfvtlq 0.4 Gamma Globulins 1.6 Monoclonal Peak 3 DNR Ser Monoclonl Protein SEE NOTE Ser Monoclonal Prot 2 DNR PEP Interpretation SEE NOTE 02/06/22 02/06/22 02/06/22 05:32 07:49 07:49 WBC 4.71 L RBC 3.76 L Hgb 10.9 L Hct 33.8 L MCV 89.9 MCH 29.0 MCHC 32.2 RDW Std Deviation 56.5 H RDW Coeff of Carolyn 17.1 H Plt Count 172 MPV 10.4 PT INR Sodium 128 L Potassium 4.1 Chloride 94 L Carbon Dioxide 26 Anion Gap 8 BUN 17 Creatinine 0.86 Est Cr Clr Drug Dosing 76.4 Est GFR ( Amer) 94.3 Est GFR (Non-Af Amer) 81.3 BUN/Creatinine Ratio 19.8 Glucose 83 POC Glucose 79 Calcium 8.5 Total Bilirubin 1.5 H AST 37 ALT 22 Alkaline Phosphatase 347 H Total Protein 6.8 Total Protein (PEP) Albumin 3.3 L Albumin (PEP) Globulin 3.5 Albumin/Globulin Ratio 0.9 Bbtih-4-Kuchwpltd Ghfij-7-Krrygcaqh Eayv-4-Otnqfayt Lhku-5-Dmcfqijd Gamma Globulins Monoclonal Peak 3 Ser Monoclonl Protein Ser Monoclonal Prot 2 PEP Interpretation 02/06/22 02/06/22 07:49 12:46 WBC RBC Hgb Hct MCV MCH MCHC RDW Std Deviation RDW Coeff of Carolyn Plt Count MPV PT 13.2 H INR 1.3 H Sodium Potassium Chloride Carbon Dioxide Anion Gap BUN Creatinine Est Cr Clr Drug Dosing Est GFR ( Amer) Est GFR (Non-Af Amer) BUN/Creatinine Ratio Glucose POC Glucose 87 Calcium Total Bilirubin AST ALT Alkaline Phosphatase Total Protein Total Protein (PEP) Albumin Albumin (PEP) Globulin Albumin/Globulin Ratio Fuwkj-1-Rkzkjdoev Hzqyo-5-Mcqjinzyk Ziub-8-Ftasojlw Ublr-6-Itvnllkr Gamma Globulins Monoclonal Peak 3 Ser Monoclonl Protein Ser Monoclonal Prot 2 PEP Interpretation
--- NOTE | 2022-02-06 18:11 | Hospitalist Progress Note ---
Date of Service February 06, 2022 Assessment & Plan (1) Elevated LFTs: (2) Cholelithiasis: (3) Hypotension: (4) Hyperglycemia: (5) Cellulitis: Plan Hypotension- resolved, BP now normal- suspected early sepsis versus over diuresis -resolved with IV fluids and antibiotics -continue to hold diuretics and lisinopril -TSH, cortisol normal. TTE results noted (see below) -antibiotics broadened to Vancomycin/zosyn 01/31--> vancomycin discontinued 02/01, continue zosyn Hyponatremia- chronic but dropped down to 125 and now sodium improving, recheck in am PAF- rate controlled Chronic systolic CHF -TTE with EF 25% -currently appears euvolemic. Will hold torsemide and lisinopril for now- likely resume diuretic from tomorrow -Cardiology consulted, appreciate input. Amyloidosis workup planned - OP cardio appt 02/27/22 Abnormal LFTs- attributed to congestive hepatopathy per GI but no transaminitis, only ALP elevation -MRCP was non diagnostic. - Seen by GI- s/p ERCP EUS today- no CBD stones but gallstones +, liver biopsy taken- follow up - No NSAIDs or anticoag for 5 days per GI - No ACEI or statin per cardio at discharge Type 2 NIDDM with hyperglycemia -Better glycemic control currently -Management per glycemic pharmacist Bilateral Lower extremity cellulitis- already on Zosyn, monitor DVT ppx- SCD. Resume sc heparin in am Disposition- Monitoring labs. S/p ERCP today. Evaluated by PT and rehab recommended although patient not interested in rehab. Admission and Anticipated Discharge Date Admission Date: January 31, 2022 Subjective Feels okay. Asking if he can eat something. Denies any chest pain, shortness of breath, nausea, vomiting, fever, chills. Physical Exam Physical Exam: General: Lying comfortably in bed, not in distress, on room air HEENT: EOMI, MIKE, MMM Chest: Clear breath sounds bilaterally, no wheezes or crackles CVS: Regular rate and rhythm, normal heart sounds, no murmur Abdomen: Soft, non tender, not distended, normal bowel sounds Neuro: Awake, alert, oriented, conversing well, non focal Extremities: LE cellulitis- minimal, no edema Results & Data Results & Data ([facility]) Vital Signs (Past 12 Hours) Vital Signs Temp Pulse Pulse Resp BP BP Pulse Ox 02/06/22 16:43 36.3 C L 58 L 19 120/82 95 02/06/22 15:54 58 L 02/06/22 15:49 36.3 C L 55 L 18 104/64 93 02/06/22 15:12 36.3 C L 58 L 18 120/72 99 02/06/22 14:38 36.3 C L 58 L 16 120/72 95 02/06/22 14:03 36.4 C L 58 L 16 117/69 96 02/06/22 13:35 36.4 C L 56 L 18 106/62 97 02/06/22 13:10 36.2 C L 58 L 18 119/68 100 02/06/22 13:00 57 L 18 114/71 100 02/06/22 12:50 57 L 18 99/64 L 100 02/06/22 12:43 36.0 C L 57 L 18 121/81 96 02/06/22 11:10 02/06/22 10:52 36.4 C L 59 L 18 105/59 L 97 02/06/22 07:29 36.4 C L 59 L 19 115/76 94 02/06/22 07:26 58 L O2 Del Method O2 Flow Rate 02/06/22 16:43 Room Air 02/06/22 15:54 02/06/22 15:49 02/06/22 15:12 Room Air 02/06/22 14:38 02/06/22 14:03 02/06/22 13:35 Room Air 02/06/22 13:10 Oxymask 4 02/06/22 13:00 Oxymask 4 02/06/22 12:50 Oxymask 4 02/06/22 12:43 Oxymask 4 02/06/22 11:10 Room Air 02/06/22 10:52 Room Air 02/06/22 07:29 Room Air 02/06/22 07:26 Laboratory Results Short CBC 02/06/22 Range/Units 07:49 WBC 4.71 L (4.8-10.8) K/ul Hgb 10.9 L (14.0-18.0) g/dl Hct 33.8 L (40.1-51.0) % Plt Count 172 (130-400) K/uL BMP 02/06/22 07:49 Sodium 128 L Potassium 4.1 Chloride 94 L Carbon Dioxide 26 BUN 17 Creatinine 0.86 Glucose 83 Calcium 8.5 Liver Function 02/06/22 Range/Units 07:49 Total Bilirubin 1.5 H (0.2-1.0) mg/dl AST 37 (13-39) U/L ALT 22 (7-52) U/L Alkaline Phosphatase 347 H (34-104) U/L Albumin 3.3 L (3.4-5.0) gm/dl Medications Administered Current Inpatient Medications Acetaminophen (Acetaminophen 325 Mg Tab) 650 mg PO Q4H PRN PRN Reason: Pain or Fever Stop: 03/02/22 02:57 Atorvastatin Calcium (Atorvastatin 20 Mg Tab) 20 mg PO DAILY NATHAN Stop: 03/02/22 08:59 Last Admin: 02/01/22 08:24 Dose: 20 mg Dextrose (Dextrose 50% 50 Ml Syringe) 25 - 50 ml IV UD PRN; Protocol PRN Reason: Hypoglycemia Protocol Stop: 03/04/22 07:44 Glucagon (Glucagon For Inj 1 Mg Vial) 1 mg IM UD PRN; Protocol PRN Reason: Hypoglycemia Protocol Stop: 03/04/22 07:44 Glucose (Glucose 40% Gel 15 Gm Tube) 15 - 30 gm PO UD PRN; Protocol PRN Reason: Hypoglycemia Protocol Stop: 03/04/22 07:44 Glucose (Glucose 10 Tab/Tube) 4 - 8 tab PO UD PRN; Protocol PRN Reason: Hypoglycemia Protocol Stop: 03/04/22 07:44 Piperacillin Sod/Tazobactam (Sod 3.375 gm/ Dextrose) 115 mls @ 28.75 mls/hr IV Q8H NATHAN; Protocol Stop: 02/07/22 21:59 Last Infusion: 02/06/22 16:25 Dose: 28.8 mls/hr Insulin Aspart (Insulin Aspart Per Unit) 0 units SC ACHS NATHAN Stop: 03/08/22 16:29 Last Admin: 02/06/22 17:05 Dose: 2 units Miconazole Nitrate (Miconazole Nitrate Powder 43 Gm) 1 appln EXT PRN PRN PRN Reason: Affected Skin Folds Stop: 03/06/22 05:05 Miscellaneous (Carbohydrates For Hypoglycemia ) 15 - 30 gm PO UD PRN PRN Reason: Hypoglycemia Treatment Stop: 03/04/22 07:44 Last Admin: 02/02/22 07:40 Dose: 15 gm Nitroglycerin (Nitroglycerin Sl 0.4 Mg/Tab Tab) 0.4 mg SL Q5M PRN PRN Reason: Chest Pain Stop: 03/02/22 02:57 Ondansetron HCl (Ondansetron Inj 2 Mg/Ml 2 Ml Vial) 4 mg IV Q6H PRN PRN Reason: Nausea And Vomiting Stop: 03/04/22 08:10 Last Admin: 02/04/22 05:46 Dose: 4 mg Polyethylene Glycol (Polyethylene (Miralax) 17 Gm Pack) 17 gm PO DAILY PRN PRN Reason: Constipation Stop: 03/04/22 13:36 Saccharomyces Boulardii (Saccharomyces Boulardii 250 Mg Cap) 250 mg PO DAILY NATHAN Stop: 03/03/22 08:59 Last Admin: 02/06/22 08:34 Dose: 250 mg (1) Hypotension Hypotension type: unspecified hypotension type Qualified Code(s): I95.9 - Hypotension, unspecified (2) Cellulitis Laterality: unspecified laterality Site of cellulitis: extremity Site of cellulitis of extremity: lower extremity Qualified Code(s): L03.119 - Cellulitis of unspecified part of limb
[2022-02-07] MEDS: PIPERACILLIN/TAZOBACTAM 3.375 GM in DEXTROSE 5% 100 ML IV SCH ×2 (05:33→14:29)
[2022-02-07 09:34] LABS: Hematocrit (blood only) 34.5 % (40.1-51.0); Hemoglobin 11.2 g/dl (14.0-18.0); Mean Corpuscular Hemoglobin 28.9 pg (25.0-34.0); Mean Corpuscular Hgb Conc 32.5 g/dL (32.0-36.0); Mean Corpuscular Volume 89.1 fL (80.0-100.0); Mean Platelet Volume 9.7 fL (9.4-12.4); Platelet Count 178 K/uL (130-400); RDW Coefficient of Variation 17.3 % (11.5-14.5); RDW Standard Deviation 56.2 fL (36.4-46.3); Red Blood Count 3.87 M/uL (4.63-6.08); White Blood Count 4.98 K/ul (4.8-10.8)
[2022-02-07 09:59] LABS: Albumin Globulin Ratio 0.9 (0.9-2); Albumin Level 3.5 gm/dl (3.4-5.0); Bilirubin,Total 1.7 mg/dl (0.2-1.0); C Reactive Protein 1.96 mg/dl (0-0.5); Calcium 8.7 mg/dl (8.5-10.1); Creatinine Clr Calc Pharmacy 81.2 ml/min; Est GFR (African American) 96.6 ml/min; Est GFR (Non-African American) 83.4 ml/min; Globulin 3.9 gm/dl (2.5-4.0); Magnesium 1.6 mg/dl (1.7-2.4); Potassium 4.3 mmol/L (3.5-5.1); Total Protein 7.4 gm/dl (6.0-8.3)
[2022-02-07] MEDS: SACCHAROMYCES BOULARDII 250 MG CAP PO SCH (10:46)
[2022-02-07] MEDS: INSULIN ASPART PER UNIT SC SCH ×4 (10:48→21:01)
--- NOTE | 2022-02-07 11:36 | Surgery Progress Note ---
Date of Service February 07, 2022 Assessment & Plan (1) Cholelithiasis: Plan: No stones or sludge found on ERCP, awaiting liver biopsy results No indication for cholecystectomy at this time Will sign off, can f/u in clinic as needed but does not appear symptomatic from cholelithiasis (2) Elevated LFTs: (3) Chronic systolic (congestive) heart failure: (4) Atrial fibrillation: (5) DM type 2 (diabetes mellitus, type 2): Admission and Anticipated Discharge Date Admission Date: January 31, 2022 Subjective tolerating diet, no abdominal pain or nausea Physical Exam Gastrointestinal (Abdomen): Inspection/Auscultation: abdomen not distended Percussion/Palpation: abdomen soft; abdomen nontender Results & Data ([facility]) Vital Signs (Past 12 Hours) Vital Signs Temp Pulse Resp BP Pulse Ox O2 Del Method 02/07/22 11:08 36.4 C L 60 19 125/77 96 Room Air 02/07/22 08:01 36.4 C L 59 L 18 118/79 96 Room Air 02/07/22 04:02 36.3 C L 57 L 20 118/74 96 Room Air 02/06/22 23:31 36.3 C L 58 L 18 122/62 97 Room Air PG Care Time/CCT Total # of Minutes Spent Total Time Spent with Patient: Total time spent is greater than 50% in coordination of care (as documented) at patient's floor/unit and/or counseling patient: Coding Level of Care Code 84409 Subseq Hosp Care Lvl 1 Diagnoses Cholelithiasis K80.20 Elevated LFTs R79.89 Chronic systolic (congestive) heart failure I50.22 Atrial fibrillation I48.91 DM type 2 (diabetes mellitus, type 2) E11.9
[2022-02-07] MEDS ORDERED: MAGNESIUM SULFATE / D5W 1 GM/100 ML BAG IV ONE (12:38)
--- NOTE | 2022-02-07 19:11 | Hospitalist Progress Note ---
Date of Service February 07, 2022 Assessment & Plan (1) Elevated LFTs: (2) Cholelithiasis: (3) Hypotension: (4) Hyperglycemia: (5) Cellulitis: Plan Hypotension- resolved, BP now normal- suspected early sepsis versus over diuresis -resolved with IV fluids and antibiotics -continue to hold lisinopril- resume low dose lasix 20 mg MWF per cardiology -TSH, cortisol normal. TTE results noted (see below) -antibiotics broadened to Vancomycin/zosyn 01/31--> vancomycin discontinued 02/01, continue zosyn- consider discontinuing as completed 8 days of ABx and work up negative Hyponatremia- chronic but dropped down to 125 and now sodium improving to 130, recheck in am PAF- rate controlled, resume eliquis 5 days post procedure per GI Chronic systolic CHF -TTE with EF 25% -currently appears euvolemic. Will hold torsemide and lisinopril for now- likely resume diuretic from tomorrow -Cardiology consulted, appreciate input. Amyloidosis workup planned - OP cardio appt 02/27/22 Abnormal LFTs- attributed to congestive hepatopathy per GI but no transaminitis, only ALP elevation -MRCP was non diagnostic. - Seen by GI- s/p ERCP EUS today- no CBD stones but gallstones +, liver biopsy taken- follow up - No NSAIDs or anticoag for 5 days per GI - No ACEI or statin per cardio at discharge Type 2 NIDDM with hyperglycemia -Better glycemic control currently -Management per glycemic pharmacist Bilateral Lower extremity cellulitis- S/p antibiotic course DVT ppx- SCD. sc lovenox Disposition- Monitoring labs. Needs placement- CM following Updated son over the phone. He would like him to go to [facility] where his is. Admission and Anticipated Discharge Date Admission Date: January 31, 2022 Physical Exam Physical Exam: General: Lying comfortably in bed, not in distress, on room air HEENT: EOMI, MIKE, MMM Chest: Clear breath sounds bilaterally, no wheezes or crackles CVS: Regular rate and rhythm, normal heart sounds, no murmur Abdomen: Soft, non tender, not distended, normal bowel sounds Neuro: Awake, alert, oriented, conversing well, non focal Extremities: LE cellulitis- minimal, no edema Results & Data Results & Data ([facility]) Vital Signs (Past 12 Hours) Vital Signs Temp Pulse Pulse Resp BP BP Pulse Ox 02/07/22 16:00 60 02/07/22 15:01 36.5 C 60 19 101/60 95 02/07/22 08:00 59 L 02/07/22 11:08 36.4 C L 60 19 125/77 96 02/07/22 08:01 36.4 C L 59 L 18 118/79 96 O2 Del Method 02/07/22 16:00 02/07/22 15:01 Room Air 02/07/22 08:00 02/07/22 11:08 Room Air 02/07/22 08:01 Room Air (1) Hypotension Hypotension type: unspecified hypotension type Qualified Code(s): I95.9 - Hypotension, unspecified (2) Cellulitis Laterality: unspecified laterality Site of cellulitis: extremity Site of cellulitis of extremity: lower extremity Qualified Code(s): L03.119 - Cellulitis of unspecified part of limb
[2022-02-07] MEDS ORDERED: ENOXAPARIN INJ 40 MG/0.4 ML SYR SQ SCH (21:00)
[2022-02-08] MEDS: INSULIN ASPART PER UNIT SC SCH ×4 (08:54→21:52)
[2022-02-08] MEDS: MAGNESIUM OXIDE 400 MG TAB PO SCH ×2 (08:58→21:14)
[2022-02-08] MEDS: SACCHAROMYCES BOULARDII 250 MG CAP PO SCH (08:58)
[2022-02-08] MEDS: ENOXAPARIN INJ 40 MG/0.4 ML SYR SQ SCH (08:58)
[2022-02-08 10:22] LABS: Hematocrit (blood only) 36.9 % (40.1-51.0); Hemoglobin 11.6 g/dl (14.0-18.0)
[2022-02-08 10:40] LABS: Albumin Globulin Ratio 0.9 (0.9-2); Albumin Level 3.5 gm/dl (3.4-5.0); BUN Creatinine Ratio 17.9 (10-20); Bilirubin,Total 1.5 mg/dl (0.2-1.0); Calcium 8.7 mg/dl (8.5-10.1); Creatinine Clr Calc Pharmacy 76.9 ml/min; Est GFR (African American) 95.2 ml/min; Est GFR (Non-African American) 82.1 ml/min; Magnesium 1.8 mg/dl (1.7-2.4); Phosphorus 2.8 mg/dl (2.5-4.9); Potassium 4.6 mmol/L (3.5-5.1); Total Protein 7.5 gm/dl (6.0-8.3)
--- NOTE | 2022-02-08 12:11 | Hospitalist Progress Note ---
Date of Service February 08, 2022 Assessment & Plan (1) Elevated LFTs: (2) Cholelithiasis: (3) Hypotension: (4) Hyperglycemia: (5) Cellulitis: Plan Hypotension- resolved, BP now normal- suspected early sepsis versus over diuresis -resolved with IV fluids and antibiotics -continue to hold lisinopril- resume low dose lasix 20 mg MWF per cardiology -TSH, cortisol normal. TTE results noted (see below) - Completed empiric antibiotic course Vancomycin/zosyn 01/31--> vancomycin discontinued 02/01, continued zosyn until 02/07. Hyponatremia- chronic but dropped down to 125 and now sodium improving to 130, recheck in am PAF- rate controlled, resume Eliquis 5 days post procedure per GI which would be 02/11 Chronic systolic CHF -TTE with EF 25% -currently appears euvolemic. Will hold torsemide and lisinopril for now- likely resume diuretic from tomorrow -Cardiology consulted, appreciate input. Amyloidosis workup planned - OP cardio appt 02/27/22 Abnormal LFTs- attributed to congestive hepatopathy per GI but no transaminitis, only ALP elevation -MRCP was non diagnostic. - Seen by GI- s/p ERCP EUS today- no CBD stones but gallstones +, liver biopsy taken- follow up - No NSAIDs or anticoag for 5 days per GI - No ACEI or statin per cardio at discharge Type 2 NIDDM with hyperglycemia -Better glycemic control currently -Management per glycemic pharmacist Bilateral Lower extremity cellulitis- resolved and s/p antibiotic course DVT ppx- SCD. sc lovenox. Resume eliquis 02/11 Disposition- Monitoring labs. Needs placement- CM following Admission and Anticipated Discharge Date Admission Date: January 31, 2022 Subjective Denies any new issues. States he would like to go to [facility] where his is. No fever, chills, chest pain, shortness of breath, nausea, vomiting. Physical Exam Physical Exam: General: Sitting in chair, not in distress, on room air HEENT: EOMI, MIKE, MMM Chest: Clear breath sounds bilaterally, no wheezes or crackles CVS: Regular rate and rhythm, normal heart sounds, no murmur Abdomen: Soft, non tender, not distended, normal bowel sounds Neuro: Awake, alert, oriented, conversing well, non focal Extremities: LE cellulitis resolved, no edema Results & Data Results & Data ([facility]) Vital Signs (Past 12 Hours) Vital Signs Temp Pulse Pulse Resp BP BP Pulse Ox 02/08/22 11:08 36.2 C L 99 H 16 125/86 97 02/08/22 08:00 59 L 02/08/22 08:41 36.3 C L 59 L 16 104/47 L 97 02/08/22 02:44 36.4 C L 56 L 18 110/70 95 O2 Del Method 02/08/22 11:08 Room Air 02/08/22 08:00 02/08/22 08:41 Room Air 02/08/22 02:44 Room Air Laboratory Results Short CBC 02/08/22 Range/Units 09:59 Hgb 11.6 L (14.0-18.0) g/dl Hct 36.9 L (40.1-51.0) % BMP 02/08/22 09:59 Sodium 130 L Potassium 4.6 Chloride 98 Carbon Dioxide 23 BUN 15 Creatinine 0.84 Glucose 148 H Calcium 8.7 Liver Function 02/08/22 Range/Units 09:59 Total Bilirubin 1.5 H (0.2-1.0) mg/dl AST 37 (13-39) U/L ALT 18 (7-52) U/L Alkaline Phosphatase 395 H (34-104) U/L Albumin 3.5 (3.4-5.0) gm/dl Medications Administered Current Inpatient Medications Acetaminophen (Acetaminophen 325 Mg Tab) 650 mg PO Q4H PRN PRN Reason: Pain or Fever Stop: 03/02/22 02:57 Last Admin: 02/07/22 12:20 Dose: 650 mg Atorvastatin Calcium (Atorvastatin 20 Mg Tab) 20 mg PO DAILY NATHAN Stop: 03/02/22 08:59 Last Admin: 02/01/22 08:24 Dose: 20 mg Dextrose (Dextrose 50% 50 Ml Syringe) 25 - 50 ml IV UD PRN; Protocol PRN Reason: Hypoglycemia Protocol Stop: 03/04/22 07:44 Enoxaparin Sodium (Enoxaparin Inj 40 Mg/0.4 Ml Syr) 40 mg SQ QAM NATHAN Stop: 03/10/22 08:59 Last Admin: 02/08/22 08:58 Dose: 40 mg Glucagon (Glucagon For Inj 1 Mg Vial) 1 mg IM UD PRN; Protocol PRN Reason: Hypoglycemia Protocol Stop: 03/04/22 07:44 Glucose (Glucose 40% Gel 15 Gm Tube) 15 - 30 gm PO UD PRN; Protocol PRN Reason: Hypoglycemia Protocol Stop: 03/04/22 07:44 Glucose (Glucose 10 Tab/Tube) 4 - 8 tab PO UD PRN; Protocol PRN Reason: Hypoglycemia Protocol Stop: 03/04/22 07:44 Insulin Aspart (Insulin Aspart Per Unit) 0 units SC ACHS [facility] Stop: 03/08/22 16:29 Last Admin: 02/08/22 08:54 Dose: Not Given Magnesium Oxide (Magnesium Oxide 400 Mg Tab) 400 mg PO BID [facility] Stop: 03/10/22 08:59 Last Admin: 02/08/22 08:58 Dose: 400 mg Miconazole Nitrate (Miconazole Nitrate Powder 43 Gm) 1 appln EXT PRN PRN PRN Reason: Affected Skin Folds Stop: 03/06/22 05:05 Miscellaneous (Carbohydrates For Hypoglycemia ) 15 - 30 gm PO UD PRN PRN Reason: Hypoglycemia Treatment Stop: 03/04/22 07:44 Last Admin: 02/02/22 07:40 Dose: 15 gm Nitroglycerin (Nitroglycerin Sl 0.4 Mg/Tab Tab) 0.4 mg SL Q5M PRN PRN Reason: Chest Pain Stop: 03/02/22 02:57 Ondansetron HCl (Ondansetron Inj 2 Mg/Ml 2 Ml Vial) 4 mg IV Q6H PRN PRN Reason: Nausea And Vomiting Stop: 03/04/22 08:10 Last Admin: 02/04/22 05:46 Dose: 4 mg Polyethylene Glycol (Polyethylene (Miralax) 17 Gm Pack) 17 gm PO DAILY PRN PRN Reason: Constipation Stop: 03/04/22 13:36 Saccharomyces Boulardii (Saccharomyces Boulardii 250 Mg Cap) 250 mg PO DAILY [facility] Stop: 03/03/22 08:59 Last Admin: 02/08/22 08:58 Dose: 250 mg (1) Hypotension Hypotension type: unspecified hypotension type Qualified Code(s): I95.9 - Hypotension, unspecified (2) Cellulitis Laterality: unspecified laterality Site of cellulitis: extremity Site of cellulitis of extremity: lower extremity Qualified Code(s): L03.119 - Cellulitis of unspecified part of limb
[2022-02-09] MEDS: INSULIN ASPART PER UNIT SC SCH ×4 (09:27→23:03)
[2022-02-09] MEDS: ENOXAPARIN INJ 40 MG/0.4 ML SYR SQ SCH (09:28)
[2022-02-09] MEDS: SACCHAROMYCES BOULARDII 250 MG CAP PO SCH (09:28)
[2022-02-09] MEDS: MAGNESIUM OXIDE 400 MG TAB PO SCH ×2 (09:28→19:52)
[2022-02-09 10:19] LABS: Hematocrit (blood only) 35.2 % (40.1-51.0); Hemoglobin 11.1 g/dl (14.0-18.0); Mean Corpuscular Hemoglobin 28.9 pg (25.0-34.0); Mean Corpuscular Hgb Conc 31.5 g/dL (32.0-36.0); Mean Corpuscular Volume 91.7 fL (80.0-100.0); Mean Platelet Volume 10.1 fL (9.4-12.4); Platelet Count 187 K/uL (130-400); RDW Coefficient of Variation 17.6 % (11.5-14.5); RDW Standard Deviation 58.1 fL (36.4-46.3); Red Blood Count 3.84 M/uL (4.63-6.08); White Blood Count 5.38 K/ul (4.8-10.8)
[2022-02-09 10:51] LABS: Albumin Globulin Ratio 0.9 (0.9-2); Albumin Level 3.4 gm/dl (3.4-5.0); BUN Creatinine Ratio 21.3 (10-20); Bilirubin Direct 0.7 mg/dl (0-0.2); Bilirubin,Total 1.2 mg/dl (0.2-1.0); Calcium 8.6 mg/dl (8.5-10.1); Creatinine Clr Calc Pharmacy 72.5 ml/min; Est GFR (African American) 92.9 ml/min; Est GFR (Non-African American) 80.2 ml/min; Globulin 3.7 gm/dl (2.5-4.0); Potassium 4.5 mmol/L (3.5-5.1); Total Protein 7.1 gm/dl (6.0-8.3)
--- NOTE | 2022-02-09 12:48 | Hospitalist Progress Note ---
Date of Service February 09, 2022 Assessment & Plan (1) Elevated LFTs: (2) Cholelithiasis: (3) Hypotension: (4) Hyperglycemia: (5) Cellulitis: Plan Hypotension- resolved, BP now normal- suspected early sepsis versus over diuresis -resolved with IV fluids and antibiotics -continue to hold lisinopril- resume low dose lasix 20 mg MWF per cardiology -TSH, cortisol normal. TTE results noted (see below) - Completed empiric antibiotic course Vancomycin/zosyn 01/31--> vancomycin discontinued 02/01, continued zosyn until 02/07. Hyponatremia- chronic but dropped down to 125 and now sodium continues to trend up, now up to 132. Recheck intermittently. PAF- rate controlled, resume Eliquis 5 days post procedure per GI which would be 02/11 Chronic systolic CHF -TTE with EF 25% -currently appears euvolemic. Will hold torsemide and lisinopril for now- likely resume diuretic from tomorrow -Cardiology consulted, appreciate input. Amyloidosis workup planned - OP cardio appt 02/27/22 Abnormal LFTs- attributed to congestive hepatopathy per GI but no transaminitis, only ALP elevation - MRCP was non diagnostic. - Seen by GI- s/p ERCP EUS today- no CBD stones but gallstones +, liver biopsy taken- follow up - No NSAIDs or anticoag for 5 days per GI - No ACEI or statin per cardio at discharge Type 2 NIDDM with hyperglycemia -Better glycemic control currently -Management per glycemic pharmacist Bilateral Lower extremity cellulitis- resolved and s/p antibiotic course DVT ppx- SCD. sc lovenox. Resume eliquis 02/11 Disposition- Medically stable for discharge. Needs placement- CM following Admission and Anticipated Discharge Date Admission Date: January 31, 2022 Subjective Denies any issues. Feels good. States he wants to go home. Asking when he will be released. Denies any chest pain, shortness of breath, N/V. no leg swelling. Physical Exam Physical Exam: General: Sitting in bed, not in distress, on room air HEENT: EOMI, MIKE, MMM Chest: Clear breath sounds bilaterally, no wheezes or crackles CVS: Regular rate and rhythm, normal heart sounds, no murmur Abdomen: Soft, non tender, not distended, normal bowel sounds Neuro: Awake, alert, oriented, conversing well, non focal Extremities: No edema Results & Data Results & Data ([facility]) Vital Signs (Past 12 Hours) Vital Signs Temp Pulse Resp BP Pulse Ox O2 Del Method 02/09/22 10:51 36.3 C L 53 L 16 121/77 96 Room Air 02/09/22 07:34 36.3 C L 62 18 109/71 94 Room Air 02/09/22 04:00 36.7 C 61 18 115/74 94 Room Air Laboratory Results Short CBC 02/09/22 Range/Units 09:50 WBC 5.38 (4.8-10.8) K/ul Hgb 11.1 L (14.0-18.0) g/dl Hct 35.2 L (40.1-51.0) % Plt Count 187 (130-400) K/uL BMP 02/09/22 09:50 Sodium 132 L Potassium 4.5 Chloride 97 L Carbon Dioxide 30 BUN 19 Creatinine 0.89 Glucose 150 H Calcium 8.6 Liver Function 02/09/22 Range/Units 09:50 Total Bilirubin 1.2 H (0.2-1.0) mg/dl Direct Bilirubin 0.7 H (0-0.2) mg/dl AST 29 (13-39) U/L ALT 18 (7-52) U/L Alkaline Phosphatase 360 H (34-104) U/L Albumin 3.4 (3.4-5.0) gm/dl Medications Administered Current Inpatient Medications Acetaminophen (Acetaminophen 325 Mg Tab) 650 mg PO Q4H PRN PRN Reason: Pain or Fever Stop: 03/02/22 02:57 Last Admin: 02/07/22 12:20 Dose: 650 mg Atorvastatin Calcium (Atorvastatin 20 Mg Tab) 20 mg PO DAILY NATHAN Stop: 03/02/22 08:59 Last Admin: 02/01/22 08:24 Dose: 20 mg Dextrose (Dextrose 50% 50 Ml Syringe) 25 - 50 ml IV UD PRN; Protocol PRN Reason: Hypoglycemia Protocol Stop: 03/04/22 07:44 Enoxaparin Sodium (Enoxaparin Inj 40 Mg/0.4 Ml Syr) 40 mg SQ QAM NATHAN Stop: 03/10/22 08:59 Last Admin: 02/09/22 09:28 Dose: 40 mg Glucagon (Glucagon For Inj 1 Mg Vial) 1 mg IM UD PRN; Protocol PRN Reason: Hypoglycemia Protocol Stop: 03/04/22 07:44 Glucose (Glucose 40% Gel 15 Gm Tube) 15 - 30 gm PO UD PRN; Protocol PRN Reason: Hypoglycemia Protocol Stop: 03/04/22 07:44 Glucose (Glucose 10 Tab/Tube) 4 - 8 tab PO UD PRN; Protocol PRN Reason: Hypoglycemia Protocol Stop: 03/04/22 07:44 Insulin Aspart (Insulin Aspart Per Unit) 0 units SC ACHS NATHAN Stop: 03/08/22 16:29 Last Admin: 02/09/22 12:31 Dose: 5 units Magnesium Oxide (Magnesium Oxide 400 Mg Tab) 400 mg PO BID NATHAN Stop: 03/10/22 08:59 Last Admin: 02/09/22 09:28 Dose: 400 mg Miconazole Nitrate (Miconazole Nitrate Powder 43 Gm) 1 appln EXT PRN PRN PRN Reason: Affected Skin Folds Stop: 03/06/22 05:05 Miscellaneous (Carbohydrates For Hypoglycemia ) 15 - 30 gm PO UD PRN PRN Reason: Hypoglycemia Treatment Stop: 03/04/22 07:44 Last Admin: 02/02/22 07:40 Dose: 15 gm Nitroglycerin (Nitroglycerin Sl 0.4 Mg/Tab Tab) 0.4 mg SL Q5M PRN PRN Reason: Chest Pain Stop: 03/02/22 02:57 Ondansetron HCl (Ondansetron Inj 2 Mg/Ml 2 Ml Vial) 4 mg IV Q6H PRN PRN Reason: Nausea And Vomiting Stop: 03/04/22 08:10 Last Admin: 02/04/22 05:46 Dose: 4 mg Polyethylene Glycol (Polyethylene (Miralax) 17 Gm Pack) 17 gm PO DAILY PRN PRN Reason: Constipation Stop: 03/04/22 13:36 Saccharomyces Boulardii (Saccharomyces Boulardii 250 Mg Cap) 250 mg PO DAILY [facility] Stop: 03/03/22 08:59 Last Admin: 02/09/22 09:28 Dose: 250 mg (1) Hypotension Hypotension type: unspecified hypotension type Qualified Code(s): I95.9 - Hypotension, unspecified (2) Cellulitis Laterality: unspecified laterality Site of cellulitis: extremity Site of cellulitis of extremity: lower extremity Qualified Code(s): L03.119 - Cellulitis of unspecified part of limb
[2022-02-10] MEDS: ENOXAPARIN INJ 40 MG/0.4 ML SYR SQ SCH (07:36)
[2022-02-10] MEDS: MAGNESIUM OXIDE 400 MG TAB PO SCH ×2 (07:37→19:35)
[2022-02-10] MEDS: SACCHAROMYCES BOULARDII 250 MG CAP PO SCH (07:37)
[2022-02-10] MEDS: INSULIN ASPART PER UNIT SC SCH ×4 (09:19→22:35)
--- NOTE | 2022-02-10 11:33 | Hospitalist Progress Note ---
Date of Service February 10, 2022 Assessment & Plan (1) Elevated LFTs: (2) Cholelithiasis: (3) Hypotension: (4) Hyperglycemia: (5) Cellulitis: Plan Hypotension- resolved, BP now normal- suspected early sepsis versus over diuresis -resolved with IV fluids and antibiotics -continue to hold lisinopril- resume low dose lasix 20 mg MWF per cardiology -TSH, cortisol normal. TTE results noted (see below) - Completed empiric antibiotic course Vancomycin/zosyn 01/31--> vancomycin discontinued 02/01, continued zosyn until 02/07. Hyponatremia- chronic but dropped down to 125 and now up to 132. Recheck in am PAF- rate controlled, resume Eliquis 5 days post procedure per GI which would be 02/11 Chronic systolic CHF -TTE with EF 25% -currently appears euvolemic. Will hold torsemide and lisinopril for now- resume diuretic from tomorrow -Cardiology consulted, appreciate input. Amyloidosis workup planned - OP cardio appt 02/27/22 Abnormal LFTs- attributed to congestive hepatopathy per GI but no transaminitis, only ALP elevation - MRCP was non diagnostic. - Seen by GI- s/p ERCP EUS today- no CBD stones but gallstones +, liver biopsy taken- follow up - No NSAIDs or anticoag for 5 days per GI - No ACEI or statin per cardio at discharge Type 2 NIDDM with hyperglycemia -Better glycemic control currently -Management per glycemic pharmacist Bilateral Lower extremity cellulitis- resolved and s/p antibiotic course DVT ppx- SCD. sc lovenox. Resume eliquis 02/11 Disposition- Medically stable for discharge. Needs placement- CM following Admission and Anticipated Discharge Date Admission Date: January 31, 2022 Physical Exam Physical Exam: General: Sitting in bed, not in distress, on room air HEENT: EOMI, MIKE, MMM Chest: Clear breath sounds bilaterally, no wheezes or crackles CVS: Regular rate and rhythm, normal heart sounds, no murmur Abdomen: Soft, non tender, not distended, normal bowel sounds Neuro: Awake, alert, oriented, conversing well, non focal Extremities: No edema Results & Data Results & Data ([facility]) Vital Signs (Past 12 Hours) Vital Signs Temp Pulse Resp BP Pulse Ox O2 Del Method 02/10/22 07:46 36.4 C L 61 16 116/71 97 Room Air (1) Hypotension Hypotension type: unspecified hypotension type Qualified Code(s): I95.9 - Hypotension, unspecified (2) Cellulitis Laterality: unspecified laterality Site of cellulitis: extremity Site of cellulitis of extremity: lower extremity Qualified Code(s): L03.119 - Cell ulitis of unspecified part of limb
[2022-02-11] MEDS ORDERED: guaiFENesin/CODEINE 100MG/10MG 5ML UDC PO PRN (03:32)
[2022-02-11 06:04] LABS: Hemoglobin 10.5 g/dl (14.0-18.0)
[2022-02-11 06:27] LABS: BUN Creatinine Ratio 30.6 (10-20); Calcium 8.6 mg/dl (8.5-10.1); Creatinine Clr Calc Pharmacy 75.9 ml/min; Est GFR (African American) 94.7 ml/min; Est GFR (Non-African American) 81.7 ml/min; Potassium 4.8 mmol/L (3.5-5.1)
[2022-02-11] MEDS: FUROSEMIDE 20 MG TAB PO SCH (08:15)
[2022-02-11] MEDS: MAGNESIUM OXIDE 400 MG TAB PO SCH ×2 (08:15→20:38)
[2022-02-11] MEDS: SACCHAROMYCES BOULARDII 250 MG CAP PO SCH (08:15)
[2022-02-11] MEDS: APIXABAN 2.5 MG TAB PO SCH ×2 (08:15→20:38)
[2022-02-11] MEDS: INSULIN ASPART PER UNIT SC SCH ×4 (08:16→20:38)
--- NOTE | 2022-02-11 17:49 | Hospitalist Progress Note ---
Date of Service February 11, 2022 Assessment & Plan (1) Elevated LFTs: (2) Cholelithiasis: (3) Hypotension: (4) Hyperglycemia: (5) Cellulitis: Plan Hypotension- resolved, BP now normal- suspected early sepsis versus over diuresis -resolved with IV fluids and antibiotics -continue to hold lisinopril- resume low dose lasix 20 mg MWF per cardiology -TSH, cortisol normal. TTE results noted (see below) - Completed empiric antibiotic course Vancomycin/zosyn 01/31--> vancomycin discontinued 02/01, continued zosyn until 02/07. Hyponatremia- chronic but dropped down to 125 and now up to 132. Recheck in am PAF- rate controlled, resumed Eliquis today Chronic systolic CHF -TTE with EF 25% -currently appears euvolemic. Resumed lasix MWF per cardiology -Cardiology consulted, appreciate input. Amyloidosis workup planned - OP cardio appt 02/27/22 Abnormal LFTs- attributed to congestive hepatopathy per GI but no transaminitis, only ALP elevation - MRCP was non diagnostic. - Seen by GI- s/p ERCP EUS today- no CBD stones but gallstones +, liver biopsy taken- follow up - No NSAIDs or anticoag for 5 days per GI - No ACEI or statin per cardio at discharge Type 2 NIDDM with hyperglycemia -Better glycemic control currently -Management per glycemic pharmacist Bilateral Lower extremity cellulitis- resolved and s/p antibiotic course DVT ppx- Eliquis Disposition- Medically stable for discharge. Needs placement- CM following Admission and Anticipated Discharge Date Admission Date: January 31, 2022 Subjective States he feels really good and would like to get released. No fever, chills, chest pain, shortness of breath. Normal oral intake. Physical Exam Physical Exam: General: Sitting in bed, not in distress, on room air HEENT: EOMI, MIKE, MMM Chest: Clear breath sounds bilaterally, no wheezes or crackles CVS: Regular rate and rhythm, normal heart sounds, no murmur Abdomen: Soft, non tender, not distended, normal bowel sounds Neuro: Awake, alert, oriented, conversing well, non focal Extremities: No edema Results & Data Results & Data ([facility]) Vital Signs (Past 12 Hours) Vital Signs Temp Pulse Resp BP Pulse Ox O2 Del Method 02/11/22 15:53 36.8 C 63 18 107/65 96 02/11/22 10:54 36.8 C 84 18 106/64 91 Room Air 02/11/22 08:06 36.5 C 62 18 106/70 93 Laboratory Results Short CBC 02/11/22 Range/Units 05:31 Hgb 10.5 L (14.0-18.0) g/dl Hct 32.0 L (40.1-51.0) % BMP 02/11/22 05:31 Sodium 132 L Potassium 4.8 Chloride 100 Carbon Dioxide 26 BUN 26 H Creatinine 0.85 Glucose 97 Calcium 8.6 Medications Administered Current Inpatient Medications Acetaminophen (Acetaminophen 325 Mg Tab) 650 mg PO Q4H PRN PRN Reason: Pain or Fever Stop: 03/02/22 02:57 Last Admin: 02/07/22 12:20 Dose: 650 mg Apixaban (Apixaban 2.5 Mg Tab) 5 mg PO BID NATHAN Stop: 03/13/22 08:59 Last Admin: 02/11/22 08:15 Dose: 5 mg Atorvastatin Calcium (Atorvastatin 20 Mg Tab) 20 mg PO DAILY NATHAN Stop: 03/02/22 08:59 Last Admin: 02/01/22 08:24 Dose: 20 mg Dextrose (Dextrose 50% 50 Ml Syringe) 25 - 50 ml IV UD PRN; Protocol PRN Reason: Hypoglycemia Protocol Stop: 03/04/22 07:44 Furosemide (Furosemide 20 Mg Tab) 20 mg PO Q48H NATHAN Stop: 03/13/22 08:59 Last Admin: 02/11/22 08:15 Dose: 20 mg Glucagon (Glucagon For Inj 1 Mg Vial) 1 mg IM UD PRN; Protocol PRN Reason: Hypoglycemia Protocol Stop: 03/04/22 07:44 Glucose (Glucose 40% Gel 15 Gm Tube) 15 - 30 gm PO UD PRN; Protocol PRN Reason: Hypoglycemia Protocol Stop: 03/04/22 07:44 Glucose (Glucose 10 Tab/Tube) 4 - 8 tab PO UD PRN; Protocol PRN Reason: Hypoglycemia Protocol Stop: 03/04/22 07:44 Guaifenesin/Codeine Phosphate (Guaifenesin/Codeine 100mg/10mg 5ml Udc) 5 ml PO Q6H PRN PRN Reason: Cough Stop: 03/13/22 03:31 Last Admin: 02/11/22 03:46 Dose: 5 ml Insulin Aspart (Insulin Aspart Per Unit) 0 units SC ACHS [facility] Stop: 03/08/22 16:29 Last Admin: 02/11/22 17:27 Dose: 4 units Magnesium Oxide (Magnesium Oxide 400 Mg Tab) 400 mg PO BID [facility] Stop: 03/10/22 08:59 Last Admin: 02/11/22 08:15 Dose: 400 mg Miconazole Nitrate (Miconazole Nitrate Powder 43 Gm) 1 appln EXT PRN PRN PRN Reason: Affected Skin Folds Stop: 03/06/22 05:05 Miscellaneous (Carbohydrates For Hypoglycemia ) 15 - 30 gm PO UD PRN PRN Reason: Hypoglycemia Treatment Stop: 03/04/22 07:44 Last Admin: 02/02/22 07:40 Dose: 15 gm Nitroglycerin (Nitroglycerin Sl 0.4 Mg/Tab Tab) 0.4 mg SL Q5M PRN PRN Reason: Chest Pain Stop: 03/02/22 02:57 Ondansetron HCl (Ondansetron Inj 2 Mg/Ml 2 Ml Vial) 4 mg IV Q6H PRN PRN Reason: Nausea And Vomiting Stop: 03/04/22 08:10 Last Admin: 02/04/22 05:46 Dose: 4 mg Polyethylene Glycol (Polyethylene (Miralax) 17 Gm Pack) 17 gm PO DAILY PRN PRN Reason: Constipation Stop: 03/04/22 13:36 Saccharomyces Boulardii (Saccharomyces Boulardii 250 Mg Cap) 250 mg PO DAILY [facility] Stop: 03/03/22 08:59 Last Admin: 02/11/22 08:15 Dose: 250 mg (1) Hypotension Hypotension type: unspecified hypotension type Qualified Code(s): I95.9 - Hypotension, unspecified (2) Cellulitis Laterality: unspecified laterality Site of cellulitis: extremity Site of cellulitis of extremity: lower extremity Qualified Code(s): L03.119 - Cellulitis of unspecified part of limb
[2022-02-12] MEDS: SACCHAROMYCES BOULARDII 250 MG CAP PO SCH (07:39)
[2022-02-12] MEDS: MAGNESIUM OXIDE 400 MG TAB PO SCH ×2 (07:39→20:37)
[2022-02-12] MEDS: APIXABAN 2.5 MG TAB PO SCH ×2 (07:40→20:38)
[2022-02-12] MEDS: INSULIN ASPART PER UNIT SC SCH ×4 (09:16→20:38)
--- NOTE | 2022-02-12 17:11 | Hospitalist Progress Note ---
Date of Service February 12, 2022 Assessment & Plan (1) Elevated LFTs: (2) Cholelithiasis: (3) Hypotension: (4) Hyperglycemia: (5) Cellulitis: Plan Hypotension- resolved, BP now normal- suspected early sepsis versus over diuresis -resolved with IV fluids and antibiotics -continue to hold lisinopril- resume low dose lasix 20 mg MWF per cardiology -TSH, cortisol normal. TTE results noted (see below) - Completed empiric antibiotic course Vancomycin/zosyn 01/31--> vancomycin discontinued 02/01, continued zosyn until 02/07. Hyponatremia- chronic but dropped down to 125 and now up to 132. Recheck in am PAF- rate controlled, resumed Eliquis 02/11 after 5 days post EGD per Gi. Chronic systolic CHF -TTE with EF 25% -currently appears euvolemic. Resumed lasix MWF on 02/11 as per cardiology recommendation -Cardiology consulted, appreciate input. Amyloidosis workup planned - OP cardio appt 02/27/22 Abnormal LFTs- attributed to congestive hepatopathy per GI but no transaminitis, only ALP elevation - MRCP was non diagnostic. - Seen by GI- s/p ERCP EUS today- no CBD stones but gallstones +, liver biopsy taken- follow up - No NSAIDs or anticoag for 5 days per GI - No ACEI or statin per cardio at discharge Type 2 NIDDM with hyperglycemia -Better glycemic control currently -Management per glycemic pharmacist Bilateral Lower extremity cellulitis- resolved and s/p antibiotic course DVT ppx- Eliquis Disposition- Medically stable for discharge. Needs placement- CM following Admission and Anticipated Discharge Date Admission Date: January 31, 2022 Subjective He feels frustrated that he is not being discharged. He otherwise feels good. No new issues. No chest pain, shortness of breath, N/V. Apptite okay. Physical Exam Physical Exam: General: Sitting in bed, not in distress, on room air HEENT: EOMI, MIKE, MMM Chest: Clear breath sounds bilaterally, no wheezes or crackles CVS: Regular rate and rhythm, normal heart sounds, no murmur Abdomen: Soft, non tender, not distended, normal bowel sounds Neuro: Awake, alert, oriented, conversing well, non focal Extremities: No edema Results & Data Results & Data ([facility]) Vital Signs (Past 12 Hours) Vital Signs Temp Pulse Resp BP Pulse Ox O2 Del Method 02/12/22 14:16 36.7 C 70 20 101/61 95 Room Air 02/12/22 07:18 36.8 C 62 18 106/54 L 95 Room Air Medications Administered Current Inpatient Medications Acetaminophen (Acetaminophen 325 Mg Tab) 650 mg PO Q4H PRN PRN Reason: Pain or Fever Stop: 03/02/22 02:57 Last Admin: 02/07/22 12:20 Dose: 650 mg Apixaban (Apixaban 2.5 Mg Tab) 5 mg PO BID [facility]ATHAN Stop: 03/13/22 08:59 Last Admin: 02/12/22 07:40 Dose: 5 mg Atorvastatin Calcium (Atorvastatin 20 Mg Tab) 20 mg PO DAILY [facility] Stop: 03/02/22 08:59 Last Admin: 02/01/22 08:24 Dose: 20 mg Dextrose (Dextrose 50% 50 Ml Syringe) 25 - 50 ml IV UD PRN; Protocol PRN Reason: Hypoglycemia Protocol Stop: 03/04/22 07:44 Furosemide (Furosemide 20 Mg Tab) 20 mg PO Q48H [facility] Stop: 03/13/22 08:59 Last Admin: 02/11/22 08:15 Dose: 20 mg Glucagon (Glucagon For Inj 1 Mg Vial) 1 mg IM UD PRN; Protocol PRN Reason: Hypoglycemia Protocol Stop: 03/04/22 07:44 Glucose (Glucose 40% Gel 15 Gm Tube) 15 - 30 gm PO UD PRN; Protocol PRN Reason: Hypoglycemia Protocol Stop: 03/04/22 07:44 Glucose (Glucose 10 Tab/Tube) 4 - 8 tab PO UD PRN; Protocol PRN Reason: Hypoglycemia Protocol Stop: 03/04/22 07:44 Guaifenesin/Codeine Phosphate (Guaifenesin/Codeine 100mg/10mg 5ml Udc) 5 ml PO Q6H PRN PRN Reason: Cough Stop: 03/13/22 03:31 Last Admin: 02/11/22 03:46 Dose: 5 ml Insulin Aspart (Insulin Aspart Per Unit) 0 units SC ACHS [facility] Stop: 03/08/22 16:29 Last Admin: 02/12/22 12:53 Dose: 10 units Magnesium Oxide (Magnesium Oxide 400 Mg Tab) 400 mg PO BID [facility] Stop: 03/10/22 08:59 Last Admin: 02/12/22 07:39 Dose: 400 mg Miconazole Nitrate (Miconazole Nitrate Powder 43 Gm) 1 appln EXT PRN PRN PRN Reason: Affected Skin Folds Stop: 03/06/22 05:05 Miscellaneous (Carbohydrates For Hypoglycemia ) 15 - 30 gm PO UD PRN PRN Reason: Hypoglycemia Treatment Stop: 03/04/22 07:44 Last Admin: 02/02/22 07:40 Dose: 15 gm Nitroglycerin (Nitroglycerin Sl 0.4 Mg/Tab Tab) 0.4 mg SL Q5M PRN PRN Reason: Chest Pain Stop: 03/02/22 02:57 Ondansetron HCl (Ondansetron Inj 2 Mg/Ml 2 Ml Vial) 4 mg IV Q6H PRN PRN Reason: Nausea And Vomiting Stop: 03/04/22 08:10 Last Admin: 02/04/22 05:46 Dose: 4 mg Polyethylene Glycol (Polyethylene (Miralax) 17 Gm Pack) 17 gm PO DAILY PRN PRN Reason: Constipation Stop: 03/04/22 13:36 Saccharomyces Boulardii (Saccharomyces Boulardii 250 Mg Cap) 250 mg PO DAILY [facility] Stop: 03/03/22 08:59 Last Admin: 02/12/22 07:39 Dose: 250 mg (1) Hypotension Hypotension type: unspecified hypotension type Qualified Code(s): I95.9 - Hypotension, unspecified (2) Cellulitis Laterality: unspecified laterality Site of cellulitis: extremity Site of cellulitis of extremity: lower extremity Qualified Code(s): L03.119 - Cellulitis of unspecified part of limb
[2022-02-13 06:56] LABS: Hematocrit (blood only) 32.3 % (40.1-51.0); Hemoglobin 10.6 g/dl (14.0-18.0); Mean Corpuscular Hemoglobin 29.2 pg (25.0-34.0); Mean Corpuscular Hgb Conc 32.8 g/dL (32.0-36.0); Mean Platelet Volume 9.9 fL (9.4-12.4); Platelet Count 228 K/uL (130-400); RDW Coefficient of Variation 18.2 % (11.5-14.5); RDW Standard Deviation 58.7 fL (36.4-46.3); Red Blood Count 3.63 M/uL (4.63-6.08); White Blood Count 6.45 K/ul (4.8-10.8)
[2022-02-13 07:21] LABS: BUN Creatinine Ratio 31.6 (10-20); Calcium 8.7 mg/dl (8.5-10.1); Est GFR (African American) 86.7 ml/min; Est GFR (Non-African American) 74.8 ml/min; Magnesium 1.9 mg/dl (1.7-2.4); Potassium 4.6 mmol/L (3.5-5.1)
[2022-02-13] MEDS: FUROSEMIDE 20 MG TAB PO SCH (07:50)
[2022-02-13] MEDS: MAGNESIUM OXIDE 400 MG TAB PO SCH ×2 (07:50→20:48)
[2022-02-13] MEDS: APIXABAN 2.5 MG TAB PO SCH ×2 (07:50→20:47)
[2022-02-13] MEDS: SACCHAROMYCES BOULARDII 250 MG CAP PO SCH (07:50)
[2022-02-13] MEDS: INSULIN ASPART PER UNIT SC SCH ×4 (08:17→20:48)
--- NOTE | 2022-02-13 17:47 | Hospitalist Progress Note ---
Date of Service February 13, 2022 Assessment & Plan (1) Hypotension: (2) Elevated LFTs: (3) Cholelithiasis: (4) Hyperglycemia: (5) Cellulitis: Plan: Completed empiric antibiotic course Vancomycin/zosyn 01/31--> vancomycin discontinued 02/01, continued zosyn until 02/07. Bilateral Lower extremity cellulitis- resolved and s/p antibiotic course Plan Presented with hypotension, LOIS and also hyperglycemia Started 1 diuretics recently from [facility] Hypertension is likely secondary to dehydration and is complicated by possible sepsis on admission Hypotension- resolved, BP now normal- suspected early sepsis versus over diuresis Resolved with IV fluids and antibiotics Continue to hold lisinopril- resume low dose lasix 20 mg MWF per cardiology -TSH, cortisol normal. TTE results noted (see below) Hyponatremia- chronic but dropped down to 125 and now up to 132. Recheck in am Sodium level remains at the lower side at 132 PAF- rate controlled, resumed Eliquis 02/11 after 5 days post EGD per Gi. Eliquis has been restarted Chronic systolic CHF -TTE with EF 25% -currently appears euvolemic. Resumed lasix MWF on 02/11 as per cardiology recommendation -Cardiology consulted, appreciate input. Amyloidosis workup planned -- No ACEI or statin per cardio at discharge - OP cardio appt 02/27/22 Abnormal LFTs- attributed to congestive hepatopathy per GI but no transaminitis, only ALP elevation - MRCP was non diagnostic. - Seen by GI- s/p ERCP EUS today- no CBD stones but gallstones +, liver biopsy taken- follow up - No NSAIDs Type 2 NIDDM with hyperglycemia -Better glycemic control currently -Management per glycemic pharmacist DVT ppx- Eliquis Disposition- Medically stable for discharge. Needs placement- CM following Admission and Anticipated Discharge Date Admission Date: January 31, 2022 Subjective 02/13/2022 The patient was seen and examined in medical telemetry unit He has been stable with general weakness and wants to get out of the hospital Denies any significant symptoms of pain, shortness of breath, nausea and or vomiting Review of Systems Review of Systems: All systems reviewed and are unremarkable except as noted below Physical Exam Physical Exam: Sitting on a chair without any acute distress Constitutional: well developed, well nourished, + ill appearing and + obese Eyes: PERRL, conjunctivae normal, anicteric sclerae ENMT: external ear and nose normal, oropharynx normal Neck: trachea midline, no thyromegaly Respiratory: no respiratory distress Auscultation: + diminished lung sounds and + crackles (Minimal crackles at the bases) Cardiovascular: Rate/Rhythm: regular rate and regular rhythm; not tachycardic Heart Sounds: normal S1 and normal S2; no murmur Extremities: + edema (Trace to 1+ edema bilaterally) Gastrointestinal (Abdomen): Inspection/Auscultation: normal bowel sounds; abdomen not distended Percussion/Palpation: abdomen soft; abdomen nontender Musculoskeletal: No acute arthritis in any joint Neurologic: Alert, awake and oriented x3. Generally weak but no focal neurodeficit Lymphatic: no cervical or axillary lymphadenopathy Results & Data Results & Data ([facility]) Vital Signs (Past 12 Hours) Vital Signs Temp Pulse Resp BP Pulse Ox O2 Del Method 02/13/22 16:04 37.0 C 61 18 114/69 97 Room Air 02/13/22 07:52 36.4 C L 62 18 113/67 94 Room Air Laboratory Results Short CBC 02/13/22 Range/Units 06:06 WBC 6.45 (4.8-10.8) K/ul Hgb 10.6 L (14.0-18.0) g/dl Hct 32.3 L (40.1-51.0) % Plt Count 228 (130-400) K/uL BMP 02/13/22 06:06 Sodium 132 L Potassium 4.6 Chloride 101 Carbon Dioxide 24 BUN 30 H Creatinine 0.95 Glucose 110 H Calcium 8.7 Medications Administered Current Inpatient Medications Acetaminophen (Acetaminophen 325 Mg Tab) 650 mg PO Q4H PRN PRN Reason: Pain or Fever Stop: 03/02/22 02:57 Last Admin: 02/07/22 12:20 Dose: 650 mg Apixaban (Apixaban 2.5 Mg Tab) 5 mg PO BID NATHAN Stop: 03/13/22 08:59 Last Admin: 02/13/22 07:50 Dose: 5 mg Atorvastatin Calcium (Atorvastatin 20 Mg Tab) 20 mg PO DAILY [facility]AN Stop: 03/02/22 08:59 Last Admin: 02/01/22 08:24 Dose: 20 mg Dextrose (Dextrose 50% 50 Ml Syringe) 25 - 50 ml IV UD PRN; Protocol PRN Reason: Hypoglycemia Protocol Stop: 03/04/22 07:44 Furosemide (Furosemide 20 Mg Tab) 20 mg PO Q48H [facility]ATHAN Stop: 03/13/22 08:59 Last Admin: 02/13/22 07:50 Dose: 20 mg Glucagon (Glucagon For Inj 1 Mg Vial) 1 mg IM UD PRN; Protocol PRN Reason: Hypoglycemia Protocol Stop: 03/04/22 07:44 Glucose (Glucose 40% Gel 15 Gm Tube) 15 - 30 gm PO UD PRN; Protocol PRN Reason: Hypoglycemia Protocol Stop: 03/04/22 07:44 Glucose (Glucose 10 Tab/Tube) 4 - 8 tab PO UD PRN; Protocol PRN Reason: Hypoglycemia Protocol Stop: 03/04/22 07:44 Guaifenesin/Codeine Phosphate (Guaifenesin/Codeine 100mg/10mg 5ml Udc) 5 ml PO Q6H PRN PRN Reason: Cough Stop: 03/13/22 03:31 Last Admin: 02/11/22 03:46 Dose: 5 ml Insulin Aspart (Insulin Aspart Per Unit) 0 units SC ACHS [facility] Stop: 03/08/22 16:29 Last Admin: 02/13/22 17:04 Dose: 4 units Magnesium Oxide (Magnesium Oxide 400 Mg Tab) 400 mg PO BID [facility]ATHAN Stop: 03/10/22 08:59 Last Admin: 02/13/22 07:50 Dose: 400 mg Miconazole Nitrate (Miconazole Nitrate Powder 43 Gm) 1 appln EXT PRN PRN PRN Reason: Affected Skin Folds Stop: 03/06/22 05:05 Miscellaneous (Carbohydrates For Hypoglycemia ) 15 - 30 gm PO UD PRN PRN Reason: Hypoglycemia Treatment Stop: 03/04/22 07:44 Last Admin: 02/02/22 07:40 Dose: 15 gm Nitroglycerin (Nitroglycerin Sl 0.4 Mg/Tab Tab) 0.4 mg SL Q5M PRN PRN Reason: Chest Pain Stop: 03/02/22 02:57 Ondansetron HCl (Ondansetron Inj 2 Mg/Ml 2 Ml Vial) 4 mg IV Q6H PRN PRN Reason: Nausea And Vomiting Stop: 03/04/22 08:10 Last Admin: 02/04/22 05:46 Dose: 4 mg Polyethylene Glycol (Polyethylene (Miralax) 17 Gm Pack) 17 gm PO DAILY PRN PRN Reason: Constipation Stop: 03/04/22 13:36 Saccharomyces Boulardii (Saccharomyces Boulardii 250 Mg Cap) 250 mg PO DAILY [facility]ATHAN Stop: 03/03/22 08:59 Last Admin: 02/13/22 07:50 Dose: 250 mg (1) Hypotension Hypotension type: unspecified hypotension type Qualified Code(s): I95.9 - Hypotension, unspecified (2) Cellulitis Laterality: unspecified laterality Site of cellulitis: extremity Site of cellulitis of extremity: lower extremity Qualified Code(s): L03.119 - Cellulitis of unspecified part of limb
[2022-02-14] MEDS: INSULIN ASPART PER UNIT SC SCH ×4 (07:59→20:42)
[2022-02-14] MEDS: SACCHAROMYCES BOULARDII 250 MG CAP PO SCH (09:03)
[2022-02-14] MEDS: MAGNESIUM OXIDE 400 MG TAB PO SCH ×2 (09:04→20:43)
[2022-02-14] MEDS: APIXABAN 2.5 MG TAB PO SCH ×2 (09:04→20:43)
--- NOTE | 2022-02-14 15:20 | Hospitalist Progress Note ---
Date of Service February 14, 2022 Assessment & Plan (1) Hypotension: (2) Elevated LFTs: (3) Cholelithiasis: (4) Hyperglycemia: (5) Cellulitis: Plan: Completed empiric antibiotic course Vancomycin/zosyn 01/31--> vancomycin discontinued 02/01, continued zosyn until 02/07. Bilateral Lower extremity cellulitis- resolved and s/p antibiotic course Plan Presented with hypotension, LOIS and also hyperglycemia Started 1 diuretics recently from [facility] Hypertension is likely secondary to dehydration and is complicated by possible sepsis on admission Hypotension- resolved, BP now normal- suspected early sepsis versus over diuresis Resolved with IV fluids and antibiotics Continue to hold lisinopril- resume low dose lasix 20 mg MWF per cardiology -TSH, cortisol normal. TTE results noted (see below) Remains stable and awaiting transfer to a rehab center Hyponatremia- chronic but dropped down to 125 and now up to 132. Recheck in am Sodium level remains at the lower side at 132 PAF- rate controlled, resumed Eliquis 02/11 after 5 days post EGD per Gi. Eliquis has been restarted Chronic systolic CHF -TTE with EF 25% -currently appears euvolemic. Resumed lasix MWF on 02/11 as per cardiology recommendation -Cardiology consulted, appreciate input. Amyloidosis workup planned -- No ACEI or statin per cardio at discharge - OP cardio appt 02/27/22 -No signs and or symptoms of fluid overload Abnormal LFTs- attributed to congestive hepatopathy per GI but no transaminitis, only ALP elevation - MRCP was non diagnostic. - Seen by GI- s/p ERCP EUS today- no CBD stones but gallstones +, liver biopsy taken- follow up - No NSAIDs Type 2 NIDDM with hyperglycemia -Better glycemic control currently -Management per glycemic pharmacist DVT ppx- Eliquis Disposition- Medically stable for discharge. Needs placement- CM following Admission and Anticipated Discharge Date Admission Date: January 31, 2022 Subjective 02/13/2022 The patient was seen and examined in medical telemetry unit He has been stable with general weakness and wants to get out of the hospital Denies any significant symptoms of pain, shortness of breath, nausea and or vomiting 02/14/2022 The patient was seen and examined in medical telemetry unit He has been stable and awaiting to go to rehab Denies any symptoms Review of Systems Review of Systems: All systems reviewed and are unremarkable except as noted below Physical Exam Physical Exam: Sitting on a chair without any acute distress Constitutional: well developed, well nourished, + ill appearing and + obese Eyes: PERRL, conjunctivae normal, anicteric sclerae ENMT: external ear and nose normal, oropharynx normal Neck: trachea midline, no thyromegaly Respiratory: no respiratory distress Auscultation: + diminished lung sounds and + crackles (Minimal crackles at the bases) Cardiovascular: Rate/Rhythm: regular rate and regular rhythm; not tachycardic Heart Sounds: normal S1 and normal S2; no murmur Extremities: + edema (Trace to 1+ edema bilaterally) Gastrointestinal (Abdomen): Inspection/Auscultation: normal bowel sounds; abdomen not distended Percussion/Palpation: abdomen soft; abdomen nontender Musculoskeletal: No acute arthritis in any joint Neurologic: Alert, awake and oriented x3 Lymphatic: no cervical or axillary lymphadenopathy Results & Data Results & Data ([facility]) Vital Signs (Past 12 Hours) Vital Signs Temp Pulse Resp BP Pulse Ox O2 Del Method 02/14/22 07:37 36.6 C 64 14 105/65 95 Room Air 02/14/22 03:38 Room Air Medications Administered Current Inpatient Medications Acetaminophen (Acetaminophen 325 Mg Tab) 650 mg PO Q4H PRN PRN Reason: Pain or Fever Stop: 03/02/22 02:57 Last Admin: 02/07/22 12:20 Dose: 650 mg Apixaban (Apixaban 2.5 Mg Tab) 5 mg PO BID NATHAN Stop: 03/13/22 08:59 Last Admin: 02/14/22 09:04 Dose: 5 mg Atorvastatin Calcium (Atorvastatin 20 Mg Tab) 20 mg PO DAILY [facility]ATHAN Stop: 03/02/22 08:59 Last Admin: 02/01/22 08:24 Dose: 20 mg Dextrose (Dextrose 50% 50 Ml Syringe) 25 - 50 ml IV UD PRN; Protocol PRN Reason: Hypoglycemia Protocol Stop: 03/04/22 07:44 Furosemide (Furosemide 20 Mg Tab) 20 mg PO Q48H NATHAN Stop: 03/13/22 08:59 Last Admin: 02/13/22 07:50 Dose: 20 mg Glucagon (Glucagon For Inj 1 Mg Vial) 1 mg IM UD PRN; Protocol PRN Reason: Hypoglycemia Protocol Stop: 03/04/22 07:44 Glucose (Glucose 40% Gel 15 Gm Tube) 15 - 30 gm PO UD PRN; Protocol PRN Reason: Hypoglycemia Protocol Stop: 03/04/22 07:44 Glucose (Glucose 10 Tab/Tube) 4 - 8 tab PO UD PRN; Protocol PRN Reason: Hypoglycemia Protocol Stop: 03/04/22 07:44 Guaifenesin/Codeine Phosphate (Guaifenesin/Codeine 100mg/10mg 5ml Udc) 5 ml PO Q6H PRN PRN Reason: Cough Stop: 03/13/22 03:31 Last Admin: 02/11/22 03:46 Dose: 5 ml Insulin Aspart (Insulin Aspart Per Unit) 0 units SC ACHS [facility] Stop: 03/08/22 16:29 Last Admin: 02/14/22 12:38 Dose: 10 units Magnesium Oxide (Magnesium Oxide 400 Mg Tab) 400 mg PO BID [facility] Stop: 03/10/22 08:59 Last Admin: 02/14/22 09:04 Dose: 400 mg Miconazole Nitrate (Miconazole Nitrate Powder 43 Gm) 1 appln EXT PRN PRN PRN Reason: Affected Skin Folds Stop: 03/06/22 05:05 Miscellaneous (Carbohydrates For Hypoglycemia ) 15 - 30 gm PO UD PRN PRN Reason: Hypoglycemia Treatment Stop: 03/04/22 07:44 Last Admin: 02/02/22 07:40 Dose: 15 gm Nitroglycerin (Nitroglycerin Sl 0.4 Mg/Tab Tab) 0.4 mg SL Q5M PRN PRN Reason: Chest Pain Stop: 03/02/22 02:57 Ondansetron HCl (Ondansetron Inj 2 Mg/Ml 2 Ml Vial) 4 mg IV Q6H PRN PRN Reason: Nausea And Vomiting Stop: 03/04/22 08:10 Last Admin: 02/04/22 05:46 Dose: 4 mg Polyethylene Glycol (Polyethylene (Miralax) 17 Gm Pack) 17 gm PO DAILY PRN PRN Reason: Constipation Stop: 03/04/22 13:36 Saccharomyces Boulardii (Saccharomyces Boulardii 250 Mg Cap) 250 mg PO DAILY [facility] Stop: 03/03/22 08:59 Last Admin: 02/14/22 09:03 Dose: 250 mg (1) Hypotension Hypotension type: unspecified hypotension type Qualified Code(s): I95.9 - Hypotension, unspecified (2) Cellulitis Laterality: unspecified laterality Site of cellulitis: extremity Site of cellulitis of extremity: lower extremity Qualified Code(s): L03.119 - Cellulitis of unspecified part of limb
[2022-02-14] MEDS: POLYETHYLENE (MIRALAX) 17 GM PACK PO PRN (20:47)
[2022-02-15] MEDS: MAGNESIUM OXIDE 400 MG TAB PO SCH ×2 (08:03→21:21)
[2022-02-15] MEDS: APIXABAN 2.5 MG TAB PO SCH ×2 (08:03→21:21)
[2022-02-15] MEDS: FUROSEMIDE 20 MG TAB PO SCH (08:04)
[2022-02-15] MEDS: SACCHAROMYCES BOULARDII 250 MG CAP PO SCH (08:04)
[2022-02-15] MEDS: INSULIN ASPART PER UNIT SC SCH ×4 (08:19→21:20)
--- NOTE | 2022-02-15 16:42 | Hospitalist Progress Note ---
Date of Service February 15, 2022 Assessment & Plan (1) Hypotension: (2) Elevated LFTs: (3) Cholelithiasis: (4) Hyperglycemia: (5) Cellulitis: Plan: Completed empiric antibiotic course Vancomycin/zosyn 01/31--> vancomycin discontinued 02/01, continued zosyn until 02/07. Bilateral Lower extremity cellulitis- resolved and s/p antibiotic course Plan Presented with hypotension, LOIS and also hyperglycemia Started 1 diuretics recently from [facility] Hypertension is likely secondary to dehydration and is complicated by possible sepsis on admission Hypotension- resolved, BP now normal- suspected early sepsis versus over diuresis Resolved with IV fluids and antibiotics Continue to hold lisinopril- resume low dose lasix 20 mg MWF per cardiology -TSH, cortisol normal. TTE results noted (see below) Remains stable and awaiting transfer to [facility] [place] Hyponatremia- chronic but dropped down to 125 and now up to 132. Recheck in am Sodium level remains at the lower side at 132 PAF- rate controlled, resumed Eliquis 02/11 after 5 days post EGD per Gi. Eliquis has been restarted Chronic systolic CHF -TTE with EF 25% -currently appears euvolemic. Resumed lasix MWF on 02/11 as per cardiology recommendation -Cardiology consulted, appreciate input. Amyloidosis workup planned -- No ACEI or statin per cardio at discharge - OP cardio appt 02/27/22 -No signs and or symptoms of fluid overload Abnormal LFTs- attributed to congestive hepatopathy per GI but no transaminitis, only ALP elevation - MRCP was non diagnostic. - Seen by GI- s/p ERCP EUS today- no CBD stones but gallstones +, liver biopsy taken- follow up - No NSAIDs Type 2 NIDDM with hyperglycemia -Better glycemic control currently -Management per glycemic pharmacist DVT ppx- Eliquis Disposition- Medically stable for discharge. Needs placement- CM following Not any disposition yet Admission and Anticipated Discharge Date Admission Date: January 31, 2022 Subjective 02/13/2022 The patient was seen and examined in medical telemetry unit He has been stable with general weakness and wants to get out of the hospital Denies any significant symptoms of pain, shortness of breath, nausea and or vomiting 02/14/2022 The patient was seen and examined in medical telemetry unit He has been stable and awaiting to go to rehab Denies any symptoms 02/15/2022 The patient was seen and examined in medical telemetry unit He has been stable and awaiting to go to rehab Denies any symptoms Review of Systems Review of Systems: All systems reviewed and are unremarkable except as noted below Physical Exam Physical Exam: Sitting on a chair without any acute distress Constitutional: well developed, well nourished, + ill appearing and + obese Eyes: PERRL, conjunctivae normal, anicteric sclerae ENMT: external ear and nose normal, oropharynx normal Neck: trachea midline, no thyromegaly Respiratory: no respiratory distress Auscultation: + diminished lung sounds and + crackles (Minimal crackles at the bases) Cardiovascular: Rate/Rhythm: regular rate and regular rhythm; not tachycardic Heart Sounds: normal S1 and normal S2; no murmur Extremities: + edema (Trace to 1+ edema bilaterally) Gastrointestinal (Abdomen): Inspection/Auscultation: normal bowel sounds; abdomen not distended Percussion/Palpation: abdomen soft; abdomen nontender Musculoskeletal: No acute arthritis in any joint Neurologic: Alert, awake and oriented x3. Generally weak Lymphatic: no cervical or axillary lymphadenopathy Results & Data Results & Data ([facility]) Vital Signs (Past 12 Hours) Vital Signs Temp Pulse Resp BP Pulse Ox O2 Del Method 02/15/22 06:42 36.6 C 64 18 123/79 97 Room Air Medications Administered Current Inpatient Medications Acetaminophen (Acetaminophen 325 Mg Tab) 650 mg PO Q4H PRN PRN Reason: Pain or Fever Stop: 03/02/22 02:57 Last Admin: 02/07/22 12:20 Dose: 650 mg Apixaban (Apixaban 2.5 Mg Tab) 5 mg PO BID NATHAN Stop: 03/13/22 08:59 Last Admin: 02/15/22 08:03 Dose: 5 mg Atorvastatin Calcium (Atorvastatin 20 Mg Tab) 20 mg PO DAILY NATHAN Stop: 03/02/22 08:59 Last Admin: 02/01/22 08:24 Dose: 20 mg Dextrose (Dextrose 50% 50 Ml Syringe) 25 - 50 ml IV UD PRN; Protocol PRN Reason: Hypoglycemia Protocol Stop: 03/04/22 07:44 Furosemide (Furosemide 20 Mg Tab) 20 mg PO Q48H NATHAN Stop: 03/13/22 08:59 Last Admin: 02/15/22 08:04 Dose: 20 mg Glucagon (Glucagon For Inj 1 Mg Vial) 1 mg IM UD PRN; Protocol PRN Reason: Hypoglycemia Protocol Stop: 03/04/22 07:44 Glucose (Glucose 40% Gel 15 Gm Tube) 15 - 30 gm PO UD PRN; Protocol PRN Reason: Hypoglycemia Protocol Stop: 03/04/22 07:44 Glucose (Glucose 10 Tab/Tube) 4 - 8 tab PO UD PRN; Protocol PRN Reason: Hypoglycemia Protocol Stop: 03/04/22 07:44 Guaifenesin/Codeine Phosphate (Guaifenesin/Codeine 100mg/10mg 5ml Udc) 5 ml PO Q6H PRN PRN Reason: Cough Stop: 03/13/22 03:31 Last Admin: 02/11/22 03:46 Dose: 5 ml Insulin Aspart (Insulin Aspart Per Unit) 0 units SC ACHS [facility] Stop: 03/08/22 16:29 Last Admin: 02/15/22 12:19 Dose: 7 units Magnesium Oxide (Magnesium Oxide 400 Mg Tab) 400 mg PO BID [facility] Stop: 03/10/22 08:59 Last Admin: 02/15/22 08:03 Dose: 400 mg Miconazole Nitrate (Miconazole Nitrate Powder 43 Gm) 1 appln EXT PRN PRN PRN Reason: Affected Skin Folds Stop: 03/06/22 05:05 Miscellaneous (Carbohydrates For Hypoglycemia ) 15 - 30 gm PO UD PRN PRN Reason: Hypoglycemia Treatment Stop: 03/04/22 07:44 Last Admin: 02/02/22 07:40 Dose: 15 gm Nitroglycerin (Nitroglycerin Sl 0.4 Mg/Tab Tab) 0.4 mg SL Q5M PRN PRN Reason: Chest Pain Stop: 03/02/22 02:57 Ondansetron HCl (Ondansetron Inj 2 Mg/Ml 2 Ml Vial) 4 mg IV Q6H PRN PRN Reason: Nausea And Vomiting Stop: 03/04/22 08:10 Last Admin: 02/04/22 05:46 Dose: 4 mg Polyethylene Glycol (Polyethylene (Miralax) 17 Gm Pack) 17 gm PO DAILY PRN PRN Reason: Constipation Stop: 03/04/22 13:36 Last Admin: 02/14/22 20:47 Dose: 17 gm Saccharomyces Boulardii (Saccharomyces Boulardii 250 Mg Cap) 250 mg PO DAILY [facility] Stop: 03/03/22 08:59 Last Admin: 02/15/22 08:04 Dose: 250 mg (1) Hypotension Hypotension type: unspecified hypotension type Qualified Code(s): I95.9 - Hypotension, unspecified (2) Cellulitis Laterality: unspecified laterality Site of cellulitis: extremity Site of cellulitis of extremity: lower extremity Qualified Code(s): L03.119 - Cellulitis of unspecified part of limb
[2022-02-16] MEDS: SACCHAROMYCES BOULARDII 250 MG CAP PO SCH (08:59)
[2022-02-16] MEDS: APIXABAN 2.5 MG TAB PO SCH ×2 (08:59→20:30)
[2022-02-16] MEDS: MAGNESIUM OXIDE 400 MG TAB PO SCH ×2 (08:59→20:30)
[2022-02-16] MEDS: INSULIN ASPART PER UNIT SC SCH ×4 (09:04→21:24)
--- NOTE | 2022-02-16 11:32 | Hospitalist Progress Note ---
Date of Service February 16, 2022 Assessment & Plan (1) Hypotension: (2) Elevated LFTs: (3) Cholelithiasis: (4) Hyperglycemia: (5) Cellulitis: Plan: Completed empiric antibiotic course Vancomycin/zosyn 01/31--> vancomycin discontinued 02/01, continued zosyn until 02/07. Bilateral Lower extremity cellulitis- resolved and s/p antibiotic course Plan Presented with hypotension, LOIS and also hyperglycemia Started on diuretics recently from [facility] Hypotension likely secondary to dehydration and complicated by possible sepsis on admission Hypotension- resolved, BP now normal- suspected early sepsis versus over diuresis Resolved with IV fluids and antibiotics Continue to hold lisinopril- resumed low dose lasix 20 mg MWF per cardiology -TSH, cortisol normal. TTE results noted (see below) Remains stable and awaiting [place] [facility] [place] Hyponatremia- chronic but dropped down to 125 and now up to 132. Recheck in am Sodium level remains at the lower side at 132 PAF- rate controlled, resumed Eliquis 02/11 after 5 days post EGD per Gi. Eliquis has been resumed Chronic systolic CHF -TTE with EF 25% -currently appears euvolemic. Resumed lasix MWF on 02/11 as per cardiology recommendation -Cardiology consulted, appreciate input. Amyloidosis workup planned -- No ACEI or statin per cardio at discharge - OP cardio appt 02/27/22 -No signs and or symptoms of fluid overload Abnormal LFTs- attributed to congestive hepatopathy per GI but no transaminitis, only ALP elevation - MRCP was non diagnostic. - Seen by GI- s/p ERCP EUS today- no CBD stones but gallstones +, liver biopsy taken- follow up - No NSAIDs Type 2 NIDDM with hyperglycemia -Better glycemic control currently -Management per glycemic pharmacist DVT ppx- Eliquis Disposition- Medically stable for discharge. Needs placement- CM following No disposition yet Admission and Anticipated Discharge Date Admission Date: January 31, 2022 Subjective No new issues. no fever. no N/V/SOB. Physical Exam Physical Exam: General: Lying in bed, not in distress, on room air HEENT: EOMI, MIKE, MMM Chest: Clear breath sounds bilaterally, no wheezes or crackles CVS: Regular rate and rhythm, normal heart sounds, no murmur Abdomen: Soft, non tender, not distended, normal bowel sounds Neuro: Awake, alert, oriented, conversing well, non focal Extremities: No edema Results & Data Results & Data ([facility]) Vital Signs (Past 12 Hours) Vital Signs Temp Pulse Resp BP Pulse Ox O2 Del Method 02/16/22 07:00 36.3 C L 64 18 116/74 96 Room Air (1) Hypotension Hypotension type: unspecified hypotension type Qualified Code(s): I95.9 - Hypotension, unspecified (2) Cellulitis Laterality: unspecified laterality Site of cellulitis: extremity Site of cellulitis of extremity: lower extremity Qualified Code(s): L03.119 - Cellulitis of unspecified part of limb
[2022-02-17 06:59] LABS: Hematocrit (blood only) 33.5 % (40.1-51.0); Hemoglobin 10.8 g/dl (14.0-18.0)
[2022-02-17 07:36] LABS: BUN Creatinine Ratio 40.5 (10-20); Calcium 8.9 mg/dl (8.5-10.1); Creatinine Clr Calc Pharmacy 87.3 ml/min; Est GFR (African American) 100.3 ml/min; Est GFR (Non-African American) 86.5 ml/min; Magnesium 1.8 mg/dl (1.7-2.4); Potassium 4.4 mmol/L (3.5-5.1)
[2022-02-17] MEDS: SACCHAROMYCES BOULARDII 250 MG CAP PO SCH (08:55)
[2022-02-17] MEDS: FUROSEMIDE 20 MG TAB PO SCH (08:55)
[2022-02-17] MEDS: APIXABAN 2.5 MG TAB PO SCH ×2 (08:55→20:27)
[2022-02-17] MEDS: MAGNESIUM OXIDE 400 MG TAB PO SCH ×2 (08:55→20:27)
[2022-02-17] MEDS: INSULIN ASPART PER UNIT SC SCH ×4 (09:02→21:11)
--- NOTE | 2022-02-17 11:45 | Hospitalist Progress Note ---
Date of Service February 17, 2022 Assessment & Plan (1) Hypotension: (2) Elevated LFTs: (3) Cholelithiasis: (4) Hyperglycemia: (5) Cellulitis: Plan Presented with hypotension, LOIS and also hyperglycemia Started on diuretics recently from [facility] Hypotension likely secondary to dehydration and complicated by possible sepsis on admission Hypotension- resolved, BP now normal- suspected early sepsis versus over diuresis Continue to hold lisinopril- resumed low dose lasix 20 mg MWF per cardiology -TSH, cortisol normal. TTE results noted (see below) Remains stable and awaiting transfer to [facility] Hyponatremia- chronic but dropped down to 125 and now up to 134. Recheck inter mittently PAF- rate controlled, resumed Eliquis 02/11 after 5 days post EGD per Gi. Eliquis has been resumed Chronic systolic CHF -TTE with EF 25% -currently appears euvolemic. Resumed lasix MWF on 02/11 as per cardiology recommendation -Cardiology consulted, appreciate input. Amyloidosis workup planned -- No ACEI or statin per cardio at discharge - OP cardio appt 02/27/22 -No signs and or symptoms of fluid overload Abnormal LFTs- attributed to congestive hepatopathy per GI but no transaminitis, only ALP elevation - MRCP was non diagnostic. - Seen by GI- s/p ERCP EUS today- no CBD stones but gallstones + - Stomach biopsy 02/06 negative for H pylori, metaplasia, dysplasia or malignancy - Liver biopsy 02/06 with vascular congestion and focal periportal chronic inflammation- suspected from his CHF - No NSAIDs Type 2 NIDDM with hyperglycemia- BG well controlled now. Continue current regimen DVT ppx- Eliquis Disposition- Medically stable for discharge. Needs placement- CM following No disposition yet Admission and Anticipated Discharge Date Admission Date: January 31, 2022 Subjective He says he feels really good and is asking when he can get out of here. No CP, SOB, N/V. Had BM. Physical Exam Physical Exam: General: Sitting in chair, not in distress, on room air HEENT: EOMI, MIKE, MMM Chest: Clear breath sounds bilaterally, no wheezes or crackles CVS: Regular rate and rhythm, normal heart sounds, no murmur Abdomen: Soft, non tender, not distended, normal bowel sounds Neuro: Awake, alert, oriented, conversing well, non focal Extremities: No edema Results & Data Results & Data ([facility]) Vital Signs (Past 12 Hours) Vital Signs Temp Pulse Resp BP Pulse Ox O2 Del Method 02/17/22 09:40 Room Air 02/17/22 07:54 36.5 C 67 17 128/77 94 Room Air Laboratory Results Short CBC 02/17/22 Range/Units 06:17 Hgb 10.8 L (14.0-18.0) g/dl Hct 33.5 L (40.1-51.0) % BMP 02/17/22 06:17 Sodium 134 L Potassium 4.4 Chloride 104 Carbon Dioxide 23 BUN 30 H Creatinine 0.74 Glucose 95 Calcium 8.9 Medications Administered Current Inpatient Medications Acetaminophen (Acetaminophen 325 Mg Tab) 650 mg PO Q4H PRN PRN Reason: Pain or Fever Stop: 03/02/22 02:57 Last Admin: 02/07/22 12:20 Dose: 650 mg Apixaban (Apixaban 2.5 Mg Tab) 5 mg PO BID NATHAN Stop: 03/13/22 08:59 Last Admin: 02/17/22 08:55 Dose: 5 mg Atorvastatin Calcium (Atorvastatin 20 Mg Tab) 20 mg PO DAILY NATHAN Stop: 03/02/22 08:59 Last Admin: 02/01/22 08:24 Dose: 20 mg Dextrose (Dextrose 50% 50 Ml Syringe) 25 - 50 ml IV UD PRN; Protocol PRN Reason: Hypoglycemia Protocol Stop: 03/04/22 07:44 Furosemide (Furosemide 20 Mg Tab) 20 mg PO Q48H NATHAN Stop: 03/13/22 08:59 Last Admin: 02/17/22 08:55 Dose: 20 mg Glucagon (Glucagon For Inj 1 Mg Vial) 1 mg IM UD PRN; Protocol PRN Reason: Hypoglycemia Protocol Stop: 03/04/22 07:44 Glucose (Glucose 40% Gel 15 Gm Tube) 15 - 30 gm PO UD PRN; Protocol PRN Reason: Hypoglycemia Protocol Stop: 03/04/22 07:44 Glucose (Glucose 10 Tab/Tube) 4 - 8 tab PO UD PRN; Protocol PRN Reason: Hypoglycemia Protocol Stop: 03/04/22 07:44 Guaifenesin/Codeine Phosphate (Guaifenesin/Codeine 100mg/10mg 5ml Udc) 5 ml PO Q6H PRN PRN Reason: Cough Stop: 03/13/22 03:31 Last Admin: 02/11/22 03:46 Dose: 5 ml Insulin Aspart (Insulin Aspart Per Unit) 0 units SC ACHS [facility] Stop: 03/08/22 16:29 Last Admin: 02/17/22 09:02 Dose: 4 units Magnesium Oxide (Magnesium Oxide 400 Mg Tab) 400 mg PO BID [facility] Stop: 03/10/22 08:59 Last Admin: 02/17/22 08:55 Dose: 400 mg Miconazole Nitrate (Miconazole Nitrate Powder 43 Gm) 1 appln EXT PRN PRN PRN Reason: Affected Skin Folds Stop: 03/06/22 05:05 Miscellaneous (Carbohydrates For Hypoglycemia ) 15 - 30 gm PO UD PRN PRN Reason: Hypoglycemia Treatment Stop: 03/04/22 07:44 Last Admin: 02/02/22 07:40 Dose: 15 gm Nitroglycerin (Nitroglycerin Sl 0.4 Mg/Tab Tab) 0.4 mg SL Q5M PRN PRN Reason: Chest Pain Stop: 03/02/22 02:57 Ondansetron HCl (Ondansetron Inj 2 Mg/Ml 2 Ml Vial) 4 mg IV Q6H PRN PRN Reason: Nausea And Vomiting Stop: 03/04/22 08:10 Last Admin: 02/04/22 05:46 Dose: 4 mg Polyethylene Glycol (Polyethylene (Miralax) 17 Gm Pack) 17 gm PO DAILY PRN PRN Reason: Constipation Stop: 03/04/22 13:36 Last Admin: 02/14/22 20:47 Dose: 17 gm Saccharomyces Boulardii (Saccharomyces Boulardii 250 Mg Cap) 250 mg PO DAILY [facility] Stop: 03/03/22 08:59 Last Admin: 02/17/22 08:55 Dose: 250 mg (1) Hypotension Hypotension type: unspecified hypotension type Qualified Code(s): I95.9 - Hypotension, unspecified (2) Cellulitis Laterality: unspecified laterality Site of cellulitis: extremity Site of cellulitis of extremity: lower extremity Qualified Code(s): L03.119 - Cellulitis of unspecified part of limb
[2022-02-18] MEDS: APIXABAN 2.5 MG TAB PO SCH ×2 (08:26→21:04)
[2022-02-18] MEDS: MAGNESIUM OXIDE 400 MG TAB PO SCH ×2 (08:26→21:04)
[2022-02-18] MEDS: SACCHAROMYCES BOULARDII 250 MG CAP PO SCH (08:26)
[2022-02-18] MEDS: INSULIN ASPART PER UNIT SC SCH ×4 (08:27→21:05)
--- NOTE | 2022-02-18 10:20 | Hospitalist Progress Note ---
Date of Service February 18, 2022 Assessment & Plan (1) Hypotension: (2) Elevated LFTs: (3) Cholelithiasis: (4) Hyperglycemia: (5) Cellulitis: Plan Presented with hypotension, LOIS and also hyperglycemia Started on diuretics recently from [facility] Hypotension likely secondary to dehydration and complicated by possible sepsis on admission Hypotension- resolved, BP now normal- suspected early sepsis versus over diuresis Continue to hold lisinopril- resumed low dose lasix 20 mg MWF per cardiology -TSH, cortisol normal. TTE results noted (see below) Remains stable and awaiting transfer to [facility] [place] Hyponatremia- chronic but dropped down to 125 and now up to 134. Recheck inte rmittently PAF- rate controlled, resumed Eliquis 02/11 after 5 days post EGD per Gi. Eliquis has been resumed Chronic systolic CHF -TTE with EF 25% -currently appears euvolemic. Resumed lasix MWF on 02/11 as per cardiology recommendation -Cardiology consulted, appreciate input. Amyloidosis workup planned -- No ACEI or statin per cardio at discharge - OP cardio appt 02/27/22 -No signs and or symptoms of fluid overload Abnormal LFTs- attributed to congestive hepatopathy per GI but no transaminitis, only ALP elevation - MRCP was non diagnostic. - Seen by GI- s/p ERCP EUS today- no CBD stones but gallstones + - Stomach biopsy 02/06 negative for H pylori, metaplasia, dysplasia or malignancy - Liver biopsy 02/06 with vascular congestion and focal periportal chronic inflammation- suspected from his CHF - No NSAIDs Type 2 NIDDM with hyperglycemia- BG well controlled now. Continue current regimen DVT ppx- Eliquis Disposition- Medically stable for discharge. Needs placement- CM following No disposition yet Admission and Anticipated Discharge Date Admission Date: January 31, 2022 Subjective Feels fine. Denies any new issues. Feels ready to get discharged. No nausea vomiting, chest pain or shortness of breath Physical Exam Physical Exam: General: Sitting in chair, not in distress, on room air HEENT: EOMI, MIKE, MMM Chest: Clear breath sounds bilaterally, no wheezes or crackles CVS: Regular rate and rhythm, normal heart sounds, no murmur Abdomen: Soft, non tender, not distended, normal bowel sounds Neuro: Awake, alert, oriented, conversing well, non focal Extremities: trace edema Results & Data Results & Data ([facility]) Vital Signs (Past 12 Hours) Vital Signs Temp Pulse Pulse Resp BP Pulse Ox O2 Del Method 02/18/22 07:40 Room Air 02/18/22 07:39 36.3 C L 63 17 114/74 95 Room Air 02/17/22 22:52 36.7 C 62 18 113/72 96 Room Air Medications Administered Current Inpatient Medications Acetaminophen (Acetaminophen 325 Mg Tab) 650 mg PO Q4H PRN PRN Reason: Pain or Fever Stop: 03/02/22 02:57 Last Admin: 02/07/22 12:20 Dose: 650 mg Apixaban (Apixaban 2.5 Mg Tab) 5 mg PO BID NATHAN Stop: 03/13/22 08:59 Last Admin: 02/18/22 08:26 Dose: 5 mg Atorvastatin Calcium (Atorvastatin 20 Mg Tab) 20 mg PO DAILY NATHAN Stop: 03/02/22 08:59 Last Admin: 02/01/22 08:24 Dose: 20 mg Dextrose (Dextrose 50% 50 Ml Syringe) 25 - 50 ml IV UD PRN; Protocol PRN Reason: Hypoglycemia Protocol Stop: 03/04/22 07:44 Furosemide (Furosemide 20 Mg Tab) 20 mg PO Q48H NATHAN Stop: 03/13/22 08:59 Last Admin: 02/17/22 08:55 Dose: 20 mg Glucagon (Glucagon For Inj 1 Mg Vial) 1 mg IM UD PRN; Protocol PRN Reason: Hypoglycemia Protocol Stop: 03/04/22 07:44 Glucose (Glucose 40% Gel 15 Gm Tube) 15 - 30 gm PO UD PRN; Protocol PRN Reason: Hypoglycemia Protocol Stop: 03/04/22 07:44 Glucose (Glucose 10 Tab/Tube) 4 - 8 tab PO UD PRN; Protocol PRN Reason: Hypoglycemia Protocol Stop: 03/04/22 07:44 Guaifenesin/Codeine Phosphate (Guaifenesin/Codeine 100mg/10mg 5ml Udc) 5 ml PO Q6H PRN PRN Reason: Cough Stop: 03/13/22 03:31 Last Admin: 02/11/22 03:46 Dose: 5 ml Insulin Aspart (Insulin Aspart Per Unit) 0 units SC ACHS [facility]ATHAN Stop: 03/08/22 16:29 Last Admin: 02/18/22 08:27 Dose: 4 units Magnesium Oxide (Magnesium Oxide 400 Mg Tab) 400 mg PO BID [facility] Stop: 03/10/22 08:59 Last Admin: 02/18/22 08:26 Dose: 400 mg Miconazole Nitrate (Miconazole Nitrate Powder 43 Gm) 1 appln EXT PRN PRN PRN Reason: Affected Skin Folds Stop: 03/06/22 05:05 Miscellaneous (Carbohydrates For Hypoglycemia ) 15 - 30 gm PO UD PRN PRN Reason: Hypoglycemia Treatment Stop: 03/04/22 07:44 Last Admin: 02/02/22 07:40 Dose: 15 gm Nitroglycerin (Nitroglycerin Sl 0.4 Mg/Tab Tab) 0.4 mg SL Q5M PRN PRN Reason: Chest Pain Stop: 03/02/22 02:57 Ondansetron HCl (Ondansetron Inj 2 Mg/Ml 2 Ml Vial) 4 mg IV Q6H PRN PRN Reason: Nausea And Vomiting Stop: 03/04/22 08:10 Last Admin: 02/04/22 05:46 Dose: 4 mg Polyethylene Glycol (Polyethylene (Miralax) 17 Gm Pack) 17 gm PO DAILY PRN PRN Reason: Constipation Stop: 03/04/22 13:36 Last Admin: 02/14/22 20:47 Dose: 17 gm Saccharomyces Boulardii (Saccharomyces Boulardii 250 Mg Cap) 250 mg PO DAILY [facility] Stop: 03/03/22 08:59 Last Admin: 02/18/22 08:26 Dose: 250 mg (1) Hypotension Hypotension type: unspecified hypotension type Qualified Code(s): I95.9 - Hypotension, unspecified (2) Cellulitis Laterality: unspecified laterality Site of cellulitis: extremity Site of cellulitis of extremity: lower extremity Qualified Code(s): L03.119 - Cellulitis of unspecified part of limb
[2022-02-19] MEDS: MAGNESIUM OXIDE 400 MG TAB PO SCH ×2 (07:58→20:16)
[2022-02-19] MEDS: SACCHAROMYCES BOULARDII 250 MG CAP PO SCH (07:58)
[2022-02-19] MEDS: APIXABAN 2.5 MG TAB PO SCH ×2 (07:58→20:16)
[2022-02-19] MEDS: FUROSEMIDE 20 MG TAB PO SCH (07:58)
[2022-02-19] MEDS: INSULIN ASPART PER UNIT SC SCH ×4 (09:15→20:48)
[2022-02-19] MEDS: LIDOCAINE 5% 1 PATCH TD SCH (14:44)
--- NOTE | 2022-02-19 16:05 | Hospitalist Progress Note ---
Date of Service February 19, 2022 Assessment & Plan (1) Hypotension: (2) Elevated LFTs: (3) Cholelithiasis: (4) Hyperglycemia: (5) Cellulitis: Plan Presented with hypotension, LOIS and also hyperglycemia Started on diuretics recently from [facility] Hypotension likely secondary to dehydration and complicated by possible sepsis on admission Hypotension- resolved, BP now normal- suspected early sepsis versus over diuresis Continue to hold lisinopril- resumed low dose lasix 20 mg MWF per cardiology -TSH, cortisol normal. TTE results noted (see below) Remains stable and [place] [facility] [place]onatremia- chronic but dropped down to 125 and now up to 134. Recheck inte rmittently PAF- rate controlled, resumed Eliquis 02/11 after 5 days post EGD per Gi. Eliquis has been resumed Chronic systolic CHF -TTE with EF 25% -currently appears euvolemic. Resumed lasix MWF on 02/11 as per cardiology recommendation -Cardiology consulted, appreciate input. Amyloidosis workup planned -- No ACEI or statin per cardio at discharge - OP cardio appt 02/27/22 -No signs and or symptoms of fluid overload Abnormal LFTs- attributed to congestive hepatopathy per GI but no transaminitis, only ALP elevation - MRCP was non diagnostic. - Seen by GI- s/p ERCP EUS today- no CBD stones but gallstones + - Stomach biopsy 02/06 negative for H pylori, metaplasia, dysplasia or malignancy - Liver biopsy 02/06 with vascular congestion and focal periportal chronic inflammation- suspected from his CHF - No NSAIDs Type 2 NIDDM with hyperglycemia- BG well controlled now. Continue current regimen Back pain- MSK. Will try lidocaine patch, heat pad prn. Tylenol prn DVT ppx- Eliquis Disposition- Medically stable for discharge. Needs placement- CM following No disposition yet Admission and Anticipated Discharge Date Admission Date: January 31, 2022 Subjective States he has back pain due to malposition while sleeping. No other issues. No fever, chills, chest pain, shortness of breath, N/V. Physical Exam Physical Exam: General: Sitting in chair, not in distress, on room air HEENT: EOMI, MIKE, MMM Chest: Clear breath sounds bilaterally, no wheezes or crackles CVS: Regular rate and rhythm, normal heart sounds, no murmur Abdomen: Soft, non tender, not distended, normal bowel sounds Neuro: Awake, alert, oriented, conversing well, non focal Extremities: trace edema Results & Data Results & Data ([facility]) Vital Signs (Past 12 Hours) Vital Signs Temp Pulse Resp BP Pulse Ox O2 Del Method 02/19/22 11:20 Room Air 02/19/22 07:29 36.4 C L 66 16 119/71 94 Room Air Medications Administered Current Inpatient Medications Acetaminophen (Acetaminophen 325 Mg Tab) 650 mg PO Q4H PRN PRN Reason: Pain or Fever Stop: 03/02/22 02:57 Last Admin: 02/07/22 12:20 Dose: 650 mg Apixaban (Apixaban 2.5 Mg Tab) 5 mg PO BID NATHAN Stop: 03/13/22 08:59 Last Admin: 02/19/22 07:58 Dose: 5 mg Atorvastatin Calcium (Atorvastatin 20 Mg Tab) 20 mg PO DAILY NATHAN Stop: 03/02/22 08:59 Last Admin: 02/01/22 08:24 Dose: 20 mg Dextrose (Dextrose 50% 50 Ml Syringe) 25 - 50 ml IV UD PRN; Protocol PRN Reason: Hypoglycemia Protocol Stop: 03/04/22 07:44 Furosemide (Furosemide 20 Mg Tab) 20 mg PO Q48H NATHAN Stop: 03/13/22 08:59 Last Admin: 02/19/22 07:58 Dose: 20 mg Glucagon (Glucagon For Inj 1 Mg Vial) 1 mg IM UD PRN; Protocol PRN Reason: Hypoglycemia Protocol Stop: 03/04/22 07:44 Glucose (Glucose 40% Gel 15 Gm Tube) 15 - 30 gm PO UD PRN; Protocol PRN Reason: Hypoglycemia Protocol Stop: 03/04/22 07:44 Glucose (Glucose 10 Tab/Tube) 4 - 8 tab PO UD PRN; Protocol PRN Reason: Hypoglycemia Protocol Stop: 03/04/22 07:44 Guaifenesin/Codeine Phosphate (Guaifenesin/Codeine 100mg/10mg 5ml Udc) 5 ml PO Q6H PRN PRN Reason: Cough Stop: 03/13/22 03:31 Last Admin: 02/11/22 03:46 Dose: 5 ml Insulin Aspart (Insulin Aspart Per Unit) 0 units SC ACHS NATHAN Stop: 03/08/22 16:29 Last Admin: 02/19/22 12:45 Dose: 7 units Lidocaine (Lidocaine 5% 1 Patch) 1 patch TD QAM [facility] Stop: 03/21/22 11:59 Last Admin: 02/19/22 14:44 Dose: 1 patch Magnesium Oxide (Magnesium Oxide 400 Mg Tab) 400 mg PO BID [facility] Stop: 03/10/22 08:59 Last Admin: 02/19/22 07:58 Dose: 400 mg Miconazole Nitrate (Miconazole Nitrate Powder 43 Gm) 1 appln EXT PRN PRN PRN Reason: Affected Skin Folds Stop: 03/06/22 05:05 Miscellaneous (Carbohydrates For Hypoglycemia ) 15 - 30 gm PO UD PRN PRN Reason: Hypoglycemia Treatment Stop: 03/04/22 07:44 Last Admin: 02/02/22 07:40 Dose: 15 gm Miscellaneous (Remove Lidoderm Patch) 1 each N/A DAILY@2100 [facility] Stop: 03/21/22 20:59 Nitroglycerin (Nitroglycerin Sl 0.4 Mg/Tab Tab) 0.4 mg SL Q5M PRN PRN Reason: Chest Pain Stop: 03/02/22 02:57 Ondansetron HCl (Ondansetron Inj 2 Mg/Ml 2 Ml Vial) 4 mg IV Q6H PRN PRN Reason: Nausea And Vomiting Stop: 03/04/22 08:10 Last Admin: 02/04/22 05:46 Dose: 4 mg Polyethylene Glycol (Polyethylene (Miralax) 17 Gm Pack) 17 gm PO DAILY PRN PRN Reason: Constipation Stop: 03/04/22 13:36 Last Admin: 02/14/22 20:47 Dose: 17 gm Saccharomyces Boulardii (Saccharomyces Boulardii 250 Mg Cap) 250 mg PO DAILY [facility] Stop: 03/03/22 08:59 Last Admin: 02/19/22 07:58 Dose: 250 mg (1) Hypotension Hypotension type: unspecified hypotension type Qualified Code(s): I95.9 - Hypotension, unspecified (2) Cellulitis Laterality: unspecified laterality Site of cellulitis: extremity Site of cellulitis of extremity: lower extremity Qualified Code(s): L03.119 - Cellulitis of unspecified part of limb
[2022-02-20 09:11] LABS: Hematocrit (blood only) 33.9 % (40.1-51.0); Hemoglobin 10.8 g/dl (14.0-18.0); Mean Corpuscular Hemoglobin 29.6 pg (25.0-34.0); Mean Corpuscular Hgb Conc 31.9 g/dL (32.0-36.0); Mean Corpuscular Volume 92.9 fL (80.0-100.0); Platelet Count 234 K/uL (130-400); RDW Coefficient of Variation 18.8 % (11.5-14.5); RDW Standard Deviation 63.5 fL (36.4-46.3); Red Blood Count 3.65 M/uL (4.63-6.08); White Blood Count 5.91 K/ul (4.8-10.8)
[2022-02-20 09:40] LABS: BUN Creatinine Ratio 33.3 (10-20); Calcium 9.1 mg/dl (8.5-10.1); Creatinine Clr Calc Pharmacy 81.7 ml/min; Est GFR (African American) 96.6 ml/min; Est GFR (Non-African American) 83.4 ml/min; Magnesium 1.7 mg/dl (1.7-2.4); Potassium 4.5 mmol/L (3.5-5.1)
[2022-02-20] MEDS: LIDOCAINE 5% 1 PATCH TD SCH (10:11)
[2022-02-20] MEDS: MAGNESIUM OXIDE 400 MG TAB PO SCH ×2 (10:12→20:39)
[2022-02-20] MEDS: SACCHAROMYCES BOULARDII 250 MG CAP PO SCH (11:24)
[2022-02-20] MEDS: APIXABAN 2.5 MG TAB PO SCH ×2 (11:24→20:38)
[2022-02-20] MEDS: INSULIN ASPART PER UNIT SC SCH ×4 (11:34→20:39)
--- NOTE | 2022-02-20 15:13 | Hospitalist Progress Note ---
Date of Service February 20, 2022 Assessment & Plan (1) Hypotension: (2) Elevated LFTs: (3) Cholelithiasis: (4) Hyperglycemia: (5) Cellulitis: Plan Presented with hypotension, LOIS and also hyperglycemia Started on diuretics recently from [facility] Hypotension likely secondary to dehydration and complicated by possible sepsis on admission Hypotension- Resolved, BP now normal Suspected early sepsis versus over diuresis Continue to hold lisinopril Resumed low dose lasix 20 mg MWF per cardiology TSH, cortisol normal. TTE results noted Remains stable and awaiting transfer to [facility] [place] Hyponatremia Chronic but dropped down to 125 and now up to 135. Recheck as needed PAF Rate controlled. Resumed Eliquis on 02/11 (after 5 days post EGD per GI). Chronic systolic CHF TTE with EF 25% Currently appears euvolemic. Lasix MWF resumed on 02/11 as per cardiology recommendation Amyloidosis workup planned outpatient No ACEI or statin per cardio at discharge OP cardio appt 02/27/22. May need to reschedule if still inpatient by then Abnormal LFTs- Attributed to congestive hepatopathy per GI but no transaminitis, only ALP elevation MRCP was non diagnostic. Seen by GI- s/p ERCP EUS - no CBD stones but gallstones + Stomach biopsy 02/06 negative for H pylori, metaplasia, dysplasia or malignancy Liver biopsy 02/06 with vascular congestion and focal periportal chronic inflammation- suspected from his CHF No NSAIDs Type 2 NIDDM with hyperglycemia- BG well controlled now. Continue current regimen Back pain- MSK. Continue lidocaine patch, heat pad prn. Tylenol prn DVT ppx- Eliquis Disposition- Medically stable for discharge. Needs placement- working on this Admission and Anticipated Discharge Date Admission Date: January 31, 2022 Subjective Patient seen and examined Denies any complaints on ROS today Reports back pain is controlled Physical Exam Constitutional: + well hydrated; no acute distress Eyes: PERRL, conjunctivae normal, anicteric sclerae ENMT: external ear and nose normal, oropharynx normal Respiratory: normal respiratory effort, lungs clear to auscultation Cardiovascular: Rate/Rhythm: regular rate and regular rhythm S1 S2 Gastrointestinal (Abdomen): normal bowel sounds, soft, nontender, no hepatosplenomegaly Musculoskeletal: +pedal edema Neurologic: PERRL, EOMI, accommodation nl, no face palsy, no dysarthria Psychiatric: A+Ox3, euthymic affect Results & Data Results & Data ([facility]) Vital Signs (Past 12 Hours) Vital Signs Temp Pulse Resp BP BP Pulse Ox O2 Del Method 02/20/22 14:58 36.3 C L 65 16 123/73 98 Room Air 02/20/22 06:18 36.7 C 69 16 133/89 93 Room Air Laboratory Results Abnormal lab results 02/20/22 02/20/22 02/20/22 Range/Units 08:53 08:53 11:54 RBC 3.65 L (4.63-6.08) M/uL Hgb 10.8 L (14.0-18.0) g/dl Hct 33.9 L (40.1-51.0) % MCHC 31.9 L (32.0-36.0) g/dL RDW Std Deviation 63.5 H (36.4-46.3) fL RDW Coeff of Carolyn 18.8 H (11.5-14.5) % Sodium 135 L (136-145) mmol/L BUN 27 H (6-23) mg/dl BUN/Creatinine Ratio 33.3 H (10-20) Glucose 127 H (70-99(Fasting)) mg/dl POC Glucose 191 H (70-99) mg/dl (1) Hypotension Hypotension type: unspecified hypotension type Qualified Code(s): I95.9 - Hypotension, unspecified (2) Cellulitis Laterality: unspecified laterality Site of cellulitis: extremity Site of cellulitis of extremity: lower extremity Qualified Code(s): L03.119 - Cellulitis of unspecified part of limb
[2022-02-21] MEDS: FUROSEMIDE 20 MG TAB PO SCH (09:14)
[2022-02-21] MEDS: APIXABAN 2.5 MG TAB PO SCH ×2 (09:14→20:20)
[2022-02-21] MEDS: MAGNESIUM OXIDE 400 MG TAB PO SCH ×2 (09:15→20:20)
[2022-02-21] MEDS: SACCHAROMYCES BOULARDII 250 MG CAP PO SCH (09:15)
[2022-02-21] MEDS: INSULIN ASPART PER UNIT SC SCH ×4 (09:16→21:01)
[2022-02-21] MEDS: LIDOCAINE 5% 1 PATCH TD SCH (09:16)
[2022-02-21] MEDS: POLYETHYLENE (MIRALAX) 17 GM PACK PO PRN (13:02)
--- NOTE | 2022-02-21 13:15 | Hospitalist Progress Note ---
Date of Service February 21, 2022 Assessment & Plan (1) Hypotension: (2) Elevated LFTs: (3) Cholelithiasis: (4) Hyperglycemia: (5) Cellulitis: Plan Presented with hypotension, LOIS and also hyperglycemia Started on diuretics recently from [facility] Hypotension likely secondary to dehydration and complicated by possible sepsis on admission Hypotension- Resolved, BP now normal Suspected early sepsis versus over diuresis Continue to hold lisinopril Resumed low dose lasix 20 mg MWF per cardiology TSH, cortisol normal. TTE results noted Remains stable and [place] [facility] [place]onat[place] Chronic but dropped down to 125 and now up to 135. Recheck as needed PAF Rate controlled. On eliquis Chronic systolic CHF TTE with EF 25% Currently appears euvolemic. Lasix MWF resumed on 02/11 as per cardiology recommendation Amyloidosis workup planned outpatient No ACEI or statin per cardio at discharge OP cardio appt 02/27/22. May need to reschedule if still inpatient by then Abnormal LFTs- Attributed to congestive hepatopathy per GI but no transaminitis, only ALP elevation MRCP was non diagnostic. Seen by GI- s/p ERCP EUS - no CBD stones but gallstones + Stomach biopsy 02/06 negative for H pylori, metaplasia, dysplasia or malignancy Liver biopsy 02/06 with vascular congestion and focal periportal chronic inflammation- suspected from his CHF No NSAIDs Type 2 NIDDM with hyperglycemia- BG well controlled now. Continue current regimen Back pain- MSK. Continue lidocaine patch, heat pad prn. Tylenol prn DVT ppx- Eliquis Disposition- Medically stable for discharge. Needs placement- working on this Admission and Anticipated Discharge Date Admission Date: January 31, 2022 Subjective Patient seen and examined Denies any complaints Reports back pain is controlled Physical Exam Constitutional: + well hydrated; no acute distress Eyes: PERRL, conjunctivae normal, anicteric sclerae ENMT: external ear and nose normal, oropharynx normal Respiratory: normal respiratory effort, lungs clear to auscultation Cardiovascular: Rate/Rhythm: regular rate and regular rhythm S1 S2 Gastrointestinal (Abdomen): normal bowel sounds, soft, nontender, no hepatosplenomegaly Musculoskeletal: +pedal edema Neurologic: PERRL, EOMI, accommodation nl, no face palsy, no dysarthria Psychiatric: A+Ox3, euthymic affect Results & Data Results & Data ([facility]) Vital Signs (Past 12 Hours) Vital Signs Temp Pulse Resp BP Pulse Ox O2 Del Method 02/21/22 07:25 36.3 C L 64 14 124/79 97 Room Air Laboratory Results Abnormal lab results 02/21/22 02/21/22 Range/Units 07:58 11:52 POC Glucose 112 H 113 H (70-99) mg/dl (1) Hypotension Hypotension type: unspecified hypotension type Qualified Code(s): I95.9 - Hypotension, unspecified (2) Cellulitis Laterality: unspecified laterality Site of cellulitis: extremity Site of cellulitis of extremity: lower extremity Qualified Code(s): L03.119 - Cellulitis of unspecified part of limb
[2022-02-22] MEDS: MAGNESIUM OXIDE 400 MG TAB PO SCH (08:45)
[2022-02-22] MEDS: SACCHAROMYCES BOULARDII 250 MG CAP PO SCH (08:45)
[2022-02-22] MEDS: APIXABAN 2.5 MG TAB PO SCH (08:45)
[2022-02-22] MEDS: LIDOCAINE 5% 1 PATCH TD SCH (08:45)
[2022-02-22] MEDS: INSULIN ASPART PER UNIT SC SCH ×2 (08:45→12:46)
[2022-02-22] MEDS ORDERED: COVID19 Vaccine (Primary Series--Pfizer) 30mcg/0.3mL IM ONE (09:30)
--- NOTE | 2022-02-22 12:32 | Discharge Summary ---
Date of Service February 22, 2022 Admission HPI Per Admitting Provider An 81-year-old male with past medical history significant for type 2 diabetes, hyperlipidemia, diabetic retinopathy, diabetic neuropathy, history of dehydration, metabolic encephalopathy, pneumonia, history of AFib, history of chronic systolic CHF, hypertension, history of cholelithiasis, history of rectus sheath hematoma, history of bilateral leg edema, cellulitis of lower extremities, anemia, history of COVID-19, ambulatory dysfunction, generalized weakness. The patient was recently in the [facility], apparently with lower extremity redness and swelling . He was seen by cardiology and recommended IV diuretics and at discharge Lasix was changed to torsemide 40 mg p.o. b.i.d.,and , lisinopril, which was on hold during hospitalization because of soft blood pressure was restarted. Also cholelithiasis was found on ultrasound and CT abdomen and pelvis and general surgery recommended elective cholecystectomy and the patient was also placed on Keflex for possible leg cellulitis for 3 days. The patient was at home and his son found that his blood pressure was low and seemed confused and brought him here in the hospital. Systolic blood pressure was in the 80s. He was given a dose of cefepime, flu ids. Sodium was 125. Blood sugar was 322 and with insulin, sugar came down to 146. Lactate 1.9. and creatinine is 1.5. Currently resting comfortably. Denies any headache. No blurred visions, no earache, no runny nose, no sore throat. No cough. Denies any fevers. No chest pain, no shortness of breath, no nausea, no abdominal pain. Normal bowel and bladder movements. Admission Exam Per Admitting Provider GENERAL: The patient is of moderate build, not in acute distress. VITAL SIGNS: Temperature 37.2, pulse 60, respiratory rate 12, blood pressure 184/53, oxygen 95% on room air. HEENT: Pupils equal, round and reactive to light. Oral mucosa moist. NECK: No JVD or neck masses. CARDIOVASCULAR: S1 and S2 heard. Regular rate and rhythm. No murmur, no gallop. RESPIRATORY SYSTEM: Normal AP diameter. No accessory muscle use. No wheezing, no crackles. ABDOMEN: Soft, bowel sounds present, nontender, no distention. CENTRAL NERVOUS SYSTEM: Cranial nerves II through XII are grossly intact, nonfocal. EXTREMITIES: Pedal edema present. Mild erythematous changes in lower extremities. Principal Diagnosis Hypotension Acute kidney injury Elevated liver enzymes Discharge Exam Constitutional + well hydrated; no acute distress Eyes PERRL, conjunctivae normal, anicteric sclerae ENMT external ear and nose normal, oropharynx normal Respiratory normal respiratory effort, lungs clear to auscultation Cardiovascular Rate/Rhythm: regular rate and regular rhythm S1 S2 Gastrointestinal (Abdomen) normal bowel sounds, soft, nontender, no hepatosplenomegaly Musculoskeletal +pedal edema Neurologic PERRL, EOMI, accommodation nl, no face palsy, no dysarthria Psychiatric A+Ox3, euthymic affect Discharge Data Allergies Allergy/AdvReac Type Severity Reaction Status Date / Time No Known Allergies Allergy Unverified 05/26/21 14:42 Consultations 01/30/22 23:57 ED Decision to Admit Stat 01/31/22 18:14 Consult General Surgery Routine 01/31/22 18:17 Consult Gastroenterology Routine 02/01/22 15:00 Consult Cardiology Routine Procedures Performed Operation Date: 02/06/22 13:00 Actual Procedures s Endoscopic Ultrasonography Upper with Liver Bx - Susanne Poe DO There was no sign of significant endosonographic abnormality in the ampulla. No pathologic lymphadenopathy and no masses were identified. Multiple stones were visualized endosonographically in the gallbladder. They were hyperechoic and characterized by shadowing. There was no sign of significant endosonographic abnormality in the common bile duct. The maximum diameter of the duct was 5 mm. No stones, no biliary sludge and ducts of normal caliber were identified. There was no sign of significant endosonographic abnormality in the entire pancreas. No masses, no cysts. There was no sign of significant endosonographic abnormality in the left adrenal gland. No adrenal gland enlargement was identified. No lymphadenopathy seen. There was no sign of significant endosonographic abnormality in the visualized portion of the liver. Homogeneous parenchyma was identified. Fine needle biopsy was performed. Color Doppler imaging was utilized prior to needle puncture to confirm a lack of significant vascular structures within the needle path. One pass was made with the 19 gauge ultrasound core biopsy needle ([employer] needle) using a transgastric approach. A visible core of tissue was obtained. Final cytology results are pending. The pathology specimen was placed into Bottle B. Estimated blood loss was minimal. Impression: - There was no sign of significant pathology in the ampulla. - Multiple stones were visualized endosonographically in the gallbladder. - There was no sign of significant pathology in the common bile duct. - There was no sign of significant pathology in the entire pancreas. - Endosonographic images of the left adrenal gland were unremarkable. - There was no evidence of significant pathology in the visualized portion of the liver. Fine needle biopsy performed. p Esophagogastroduodenoscopy WITH BX - Susanne Poe DO The examined esophagus was normal. The Z-line was regular and was found 39 cm from the incisors. Diffuse mild inflammation characterized by congestion (edema), erythema and granularity was found in the entire examined stomach. Biopsies were taken with a cold forceps for histology. The pathology specimen was placed into Bottle A. Estimated blood loss was minimal. The examined duodenum was normal. Impression: - Normal esophagus. - Z-line regular, 39 cm from the incisors. - Gastritis. Biopsied. - Normal examined duodenum. Ordered Studies 01/30/22 21:38 CT Abd and Pelvis [CT abd pelvis IV con only] Urgent Lung base: There is evidence for atelectasis within the lateral segment of the right middle lobe. This also a small right pleural effusion and compressive atelectasis at the right lung base. Left lung base is clear. The heart is enlarged. There is a nodular density present within the right chest wall measuring 3.4 x 2.2 cm of uncertain etiology. Ultrasound would be the study of choice for further evaluation. Abdominal cavity: There is no evidence for abdominal mass, adenopathy or ascites. Liver: There is homogeneous attenuation of the liver parenchyma. There is no evidence for enhancing mass lesion. Spleen: There is homogeneous attenuation of the splenic parenchyma. There is no enhancing mass lesion. Pancreas: There is homogeneous attenuation of the pancreatic parenchyma. There is no evidence for mass lesion or peripancreatic fluid collection. Gall Bladder: There is evidence for cholelithiasis with no definite CT evidence for acute cholecystitis. Adrenal glands: The adrenal glands are normal in size and attenuation. There is no evidence for enhancing mass lesion. Kidneys: There is homogeneous attenuation of the renal parenchyma bilaterally. There is no evidence for renal calculus or hydronephrosis. There is no evidence for enhancing mass. Bowel: The stomach is distended with liquid and food stuff. There are fluid- filled loops of small bowel seen throughout the abdomen and pelvis without evidence for disproportionate dilatation or obstruction. The findings are characteristic of an ileus versus gastroenteritis. There is moderate fecal stasis and mild fecal impaction. There is no evidence for obstruction. Is sigmoid diverticulosis without evidence for diverticulitis. There are no inflammatory changes present. There is no evidence for free air. Bladder: The bladder is within normal limits with no evidence for focal mass, calculus or diverticulum. There is diffuse thickening of the wall bladder characteristic of chronic bladder outlet obstruction. : There is no evidence for pelvic mass or adenopathy. There is no evidence for pelvic ascites. The prostate is mildly enlarged. Vasculature: There is no evidence for aneurysmal dilatation of the abdominal aorta. Atherosclerotic calcification is present. Osseous structures: There is no acute osseous pathology. Degenerative changes are seen within the spine with evidence for previous internal fixation. Patient is also status post right hip replacement with imaging artifact. IMPRESSION: 1. Cholelithiasis with no definite CT evidence for acute cholecystitis. 2. Moderate fecal stasis and impaction without evidence for obstruction. 3. Small bowel ileus versus gastroenteritis. 4. Mild diverticulosis without evidence for diverticulitis. 5. Small right pleural effusion and right basilar atelectasis. This also right middle lobe atelectasis. 6. Additional nonacute findings are delineated above 02/01/22 10:29 MR MRCP Routine Lung bases: There is evidence for small to moderate size right pleural effusion. Liver: There is homogeneous signal intensity seen within the liver. No mass lesions are seen. There is no evidence for intrahepatic or duct dilatation. Gallbladder: The gallbladder is well distended with no intraluminal calculi. There is no evidence for wall thickening or pericholecystic edema. Spleen: There is homogeneous signal throughout the splenic parenchyma. No mass lesions are seen. Pancreas: The pancreas is homogeneous in signal There is no evidence for a mass lesion. Kidneys: There is homogeneous signal throughout the renal parenchyma bilaterally. Adrenal glands: There is homogeneous signal demonstrated with no gross mass seen. Abdominal cavity: There is no gross bowel dilatation. There is mild abdominal ascites with fluid seen surrounding the spleen and over the dome of the liver.. The aorta is normal in caliber. The visualized osseous structures, demonstrate no evidence of abnormal signal intensity. MRCP: Nondiagnostic. The common bile duct could not be visualized by this study. IMPRESSION: 1. Limited examination with no intrahepatic biliary duct dilatation is identified. 2. The MRCP portion of the study was nondiagnostic and the common bile duct could not be evaluated. 02/06/22 11:25 US upper EUS PACS images Routine Hospital Course (1) Hypotension: (2) Elevated LFTs: (3) Cholelithiasis: (4) Hyperglycemia: (5) Cellulitis: Plan Presented with hypotension, LOIS and also hyperglycemia Started on diuretics recently from [facility] Hypotension likely secondary to dehydration and complicated by possible sepsis on admission Hypotension- Suspected over diuresis vs early sepsis Infectious workup is negative Hypotension resolved Lisinopril was discontinued. BP has remained normal Resumed low dose lasix 20 mg MWF per cardiology LOIS resolved Hyponatremia Chronic but dropped down to 125 and now up to 135 PAF Rate controlled. On eliquis Chronic systolic CHF TTE with EF 25% Currently appears euvolemic. Amyloidosis workup planned outpatient No ACEI or statin per cardio at discharge Follow up with Cardiology outpatient Diuretic changed to lasix 20mg MWF per cards rec Abnormal LFTs- Attributed to congestive hepatopathy per GI but no transaminitis, only ALP elevation MRCP was non diagnostic. Seen by GI- s/p ERCP EUS - no CBD stones but gallstones + Stomach biopsy 02/06 negative for H pylori, metaplasia, dysplasia or malignancy Liver biopsy 02/06 with vascular congestion and focal periportal chronic inflammation- suspected from his CHF No NSAIDs DM2 Continue home antidiabetics Discharged to SNF Total Time Total Time Spent Total Time Spent (In Minutes): 45 Total Time Includes: Examination of the Patient, Discharge Planning and Medication Reconciliation Discharge Plan Discharge Items Patient Disposition: Transfer Nursing Home Fac Reason For Visit: HYPERGLYCEMIC Discharge Diagnosis: Hypotension Acute kidney injury Elevated liver enzymes Condition on Discharge: Fair Activity: As commented below Activity Comment: Per physical therapist recommendations Non-emergency contact: Primary Care Provider and [employer]et F[employer] Call non-emergency contact if: you have any medication questions Follow-up/Referrals: Uzair He MD [Physician] - (Date & Time 03/01/2022 11:40 AM Provider Uzair He MD Department General Surgery [facility] ) Gissell Corbett CRNP [Outside Practitioners] - (Date & Time 02/27/2022 9:30 AM Provider JOHNY Mena Department Cardiology [facility] ) René Diehl MD [Outside Practitioners] - Diet: Carb Consistent or DM2, Heart Healthy and Low Sodium (2gm) Fluids: 1800ml (7 cups) Addtl Attending Provider Instructions: Mr Weaver You came to the hospital for low blood pressure and confusion at home after your previous hospitalization from [place]. You were evaluated and managed for multiple problems which are improved. You were comanaged with the Corset Fitter and [employer]er. Some of your medications were adjusted. Your blood pressure medication called lisinopril is stopped for now due to the low blood pressure and your blood pressure have been stable for now. Your water pill was changed to lasix (furosemide). Your atorvastatin is stopped for now due to abnormal liver enzymes. This may be resumed later on follow up with your Primary Doctor with follow up labs. Please refer to the medication list for the current medication changes. Please ensure follow up with your Primary Doctor and Corset Fitter. It was a pleasure taking care of you. Pending Studies at Discharge: No Stand-Alone Forms: My [facility] Skilled Items Patient informed of condition?: Yes DNR: No Discharge Level of Care: Skilled Communicable Disease: No Discharge Prognosis: Stable Lines: None Urinary Catheter: No Medications and DC Order Prescriptions: New furosemide 20 mg Tablet 20 mg PO .mwf Qty: 10 0RF magnesium oxide 400 mg (241.3 mg magnesium) Tablet 400 mg PO BID Qty: 60 0RF Continued metformin 500 mg tablet extended release 24 hr 1,000 mg PO BID Qty: 60 0RF Eliquis 5 mg tablet 5 mg PO BID Qty: 60 0RF Jardiance 10 mg tablet 10 mg PO DAILY Qty: 30 0RF Discontinued cephalexin 500 mg capsule 500 mg PO TID Rx Instructions: keflex 500mg po tid from 01/30 to 02/02/22 atorvastatin 20 mg tablet 20 mg PO DAILY torsemide 20 mg tablet 40 mg PO BID lisinopril 5 mg tablet 5 mg PO QAM Discharge Orders: Discharge Order (Routine); Ordered 02/22/22 Ordered By: Jayda Bates/Other Patient Handouts: Managing Type 2 Diabetes Admission Data Admit Date/Time: 01/31/22 01:48 Attending Provider: Jayda Roth I. Admit Provider: Anand Ennis Primary Care Provider: PCP,NO Other Providers: Anand Ennis ; Natanael Ortega ; Denis Altamirano ; Bill Arshad ; Sarahy Sorensen ; Benson Amos ; [facility], Other Interventions: Discharge Summary Assessment (RN) Last Done: 02/22/22 12:56
== END 2022-02-22 13:18 | DRG 314 ==
LOC: ED 19:55 → 2W 01-31 01:48 → SUATTDRO 01-31 01:48 → 2W 01-31 02:28 → 3W 02-16 15:20